=== PATIENT | female | born 1950 | race Caucasian/White ===

== ENCOUNTER 2019-04-18 00:08 | Day surgery (SDC) | payer MEDICARE, SELFPAY ==
[2019-04-12 14:56] VITALS: BMI 24.2
[2019-04-18 12:05] VITALS: BP 139/102; PULSE 64; RESP 16; TEMP 36.7; O2SAT 100; BMI 23.1
--- NOTE | 2019-04-18 12:13 | WPDANESEPPF ---
Anes - Initial Pre Proc Eval Procedure: Operation Date: 04/18/19 13:00 Proposed Procedures p Colonoscopy - Donavan Hou DO Date/Time: 04/18/19 12:13 Surgeon: Donavan Hou DO Pre Op Diagnosis: Diverticulitis with Abscess Patient Data Age: 68 Gender: F Height: 5 ft 2 in Weight: 60 kg Allergies Allergy/AdvReac Type Severity Reaction Status Date / Time No Known Allergies Allergy Verified 04/18/19 11:57 Home Medications Medication Instructions Recorded Confirmed Type metoprolol succinate 150 mg PO DAILY 01/08/19 04/18/19 History acetaminophen [Tylenol] 325 mg PO ONCE PRN 04/12/19 04/18/19 History ascorbic acid (vitamin C) [Vitamin 1 g PO DAILY 04/12/19 04/18/19 History C] multivitamin 1 cap PO DAILY 04/12/19 04/18/19 History cholecalciferol (vitamin D3) 25 mcg PO DAILY 04/18/19 04/18/19 History Patient hx anesthesia problems: none Family hx anesthesia problems: none PMFSH Past Medical History Medical History Anxiety Arthritis Brugada syndrome Status post ICD insertion. She is a patient of Drs. Garza and Cruz at [facility]. Cardiac defibrillator in place Generator replaced within the past 2 years. Depression Diverticulosis Skin cancer History of basal cell carcinoma of the face. Surgical History Surgical History H/O shoulder surgery Right shoulder. History of abdominoplasty History of appendectomy At the age of 9. History of bowel resection small bowel resection 01/16/19 History of breast augmentation History of colonoscopy findings of diverticulosis History of dilation and curettage History of surgery on wrist bilateral Family History Family History Father Carcinoma of colon Social History Social History Social History: The patient lives in [place]. She lived is originally from [place] and lived in [place] before moving here in September 2015 to be closer to her grandchildren. She works for the [employer]. She smoked a pack of cigarettes per day for many years, but quit several years ago. She has a long history of alcoholism but has abstained for several years. She denies drug use. Primary care provider is TYREE Nicolas. She designates her daughter and son, Jennie Springer, as her surrogate decision makers and she wishes to be a full code. Tobacco type: cigarettes Substance use: never Spiritual care concerns: No Agree to blood products: Yes Anes - Eval Final PreProcedure Day of Procedure 04/18/19 12:13 Patient weight: normal Heart: regular rate and rhythm Lungs: decreased breath sounds Airway: Mallampati scale class II Neurological: alert and oriented Last oral intake: >/= 8 hours ASA classification: IV Emergent: no Anesthetic plan: proceed Anesthesia type and monitoring: general GIVS and standard monitoring Informed Consent: The patient's anesthetic plan and its attendant risks and benefits were discussed with the patient/family/POA. Questions were solicited and answers provided to the satisfaction of the patient/family/POA.
[2019-04-18] MEDS: LACTATED RINGERS 1,000 ML 150 ML IV CONT (12:35)
--- NOTE | 2019-04-18 12:53 | PM.IMHP ---
H&P: HPI History of Present Illness Chief complaint: Diverticulitis with Abscess Narrative: Lynn Doe is a 68 year old female who presents with prior hx of diverticulitis with abscess that was causing a small bowel obstruction. Eventually she had to have small bowel resection, but did not require colon resection. She has recovered well and has no more signs of diverticulitis. She presents now for follow up colonoscopy. Review of Systems Review of Systems: All systems reviewed & are unremarkable except as noted in HPI and below PMFSH Past Medical History Medical History Anxiety Arthritis Brugada syndrome Status post ICD insertion. She is a patient of Drs. Garza and Cruz at [facility]. Cardiac defibrillator in place Generator replaced within the past 2 years. Depression Diverticulosis Skin cancer History of basal cell carcinoma of the face. Surgical History Surgical History H/O shoulder surgery Right shoulder. History of abdominoplasty History of appendectomy At the age of 9. History of bowel resection small bowel resection 01/16/19 History of breast augmentation History of colonoscopy findings of diverticulosis History of dilation and curettage History of surgery on wrist bilateral Family History Family History Father Carcinoma of colon Social History Social History Social History: The patient lives in [place]. She lived is originally from [place] and lived in [place] before moving here in September 2015 to be closer to her grandchildren. She works for the [place] [employer]. She smoked a pack of cigarettes per day for many years, but quit several years ago. She has a long history of alcoholism but has abstained for several years. She denies drug use. Primary care provider is TYREE Nicolas. She designates her daughter and son, Jennie Springer, as her surrogate decision makers and she wishes to be a full code. Tobacco type: cigarettes Substance use: never Spiritual care concerns: No Agree to blood products: Yes Meds Home Medications and Allergies Home Medications Medication Instructions Recorded Confirmed Type metoprolol succinate 150 mg PO DAILY 01/08/19 04/18/19 History acetaminophen [Tylenol] 325 mg PO ONCE PRN 04/12/19 04/18/19 History ascorbic acid (vitamin C) [Vitamin 1 g PO DAILY 04/12/19 04/18/19 History C] multivitamin 1 cap PO DAILY 04/12/19 04/18/19 History cholecalciferol (vitamin D3) 25 mcg PO DAILY 04/18/19 04/18/19 History Allergies Allergy/AdvReac Type Severity Reaction Status Date / Time No Known Allergies Allergy Verified 04/18/19 11:57 Vital Signs Vital Signs - 24 hr 04/18/19 12:05 Temperature 36.7 C Pulse Rate 64 Respiratory Rate 16 Blood Pressure 139/102 H Pulse Oximetry 100 Exam Const: General: no acute distress and alert Orientation/consciousness: patient oriented x3 HENMT: Head: normocephalic and atraumatic Ears: hearing grossly normal bilaterally General nose exam: Normal nares present Mouth: Yes Normal oral and palatal mucosa present Eyes: Periorbital: periorbital findings normal Sclera: sclerae normal EOM: EOMs intact bilaterally Neck: Neck: normal visual inspection, no lymphadenopathy and trachea midline Chest: Chest palpation & inspection: normal inspection of the chest Resp: Effort & Inspection: normal respiratory effort Auscultation: clear to auscultation bilaterally Cardio: Jugular venous distension: no JVD Rate: regular rate Rhythm: regular rhythm Heart sounds: S1 normal heart sound present and S2 normal heart sound present Peripheral pulses: Peripheral pulses 2+ throughout GI: Inspection: normal to inspection GI Palp: Yes Soft to palpation, No Ten
[2019-04-18 13:32] VITALS: BP 106/61; PULSE 63; RESP 18; O2SAT 98
[2019-04-18 13:42] VITALS: BP 102/68; PULSE 63; RESP 19; O2SAT 100
[2019-04-18 13:52] VITALS: BP 111/68; PULSE 61; RESP 22; O2SAT 100
== END 2019-04-18 14:05 | disposition home or self-care (01) ==
PROVIDERS: PCP Physician Assistant; Visit Provider Surgery
PROC: 0DJD8ZZ Inspection of Lower Intestinal Tract, Via Natural or Artificial Opening Endoscopic (ICD-10-PCS; CPT 45378; principal; 2019-04-18 13:00)
DX: Z09 Encounter for follow-up examination after completed treatment for conditions other than malignant neoplasm (principal); K57.30 Diverticulosis of large intestine without perforation or abscess without bleeding; Z87.19 Personal history of other diseases of the digestive system; Z90.49 Acquired absence of other specified parts of digestive tract; Z80.0 Family history of malignant neoplasm of digestive organs; I49.8 Other specified cardiac arrhythmias; F41.8 Other specified anxiety disorders; Z95.810 Presence of automatic (implantable) cardiac defibrillator; Z87.891 Personal history of nicotine dependence; F10.21 Alcohol dependence, in remission
CPT/HCPCS: 45378; J2704; J7120

== ENCOUNTER 2019-07-28 06:50 | Outpatient (CLI) | payer MEDICARE, SELFPAY ==
--- NOTE | ~2019-07-28 | CT_ITS ---
EXAMINATION: CT abdomen pelvis w con INDICATION: Diverticulitis of the large intestine with perforation TECHNIQUE: Computed tomographic images of the abdomen and pelvis were obtained after the administrati on of 100 cc of Omnipaque 350 intravenous contrast. The dose-length product (DLP) was 251.37 mGy-cm. Automated exposure control and iterative reconstruction technique were employed. COMPARISON: 01/12/2019 FINDINGS: Minimal dependent atelectasis is present in the lung bases. The heart size is normal. A pac emaker lead ends in the right ventricle. Bilateral breast implants are noted. The liver, spleen, panc reas, gallbladder, and adrenal glands are normal. No pathologically enlarged abdominal or pelvic lymp h nodes are identified. There is no free intraperitoneal gas or evidence of bowel obstruction. Coloni c diverticulosis is present without evidence of diverticulitis. There has been interval surgical almaguer ge in the sigmoid colon. The previously described perisigmoid abscess is no longer present. There is moderate lumbar spondylosis. IMPRESSION: 1. Interval surgical changes of the sigmoid colon and colonic diverticulosis without acute findings. Reviewed, dictated and finalized at location A. IMPRESSION: 1. Interval surgical changes of the sigmoid colon and colonic diverticulosis wi thout acute findings.
[2019-07-28 07:24] LABS: Estimated Glomerular Filt Rate > 60
== END 2019-07-28 06:51 | disposition home or self-care (01) ==
LOC: ANHIMG 06:56
PROVIDERS: PCP Physician Assistant; Visit Provider Surgery
DX: K57.20 Diverticulitis of large intestine with perforation and abscess without bleeding (principal); Z98.890 Other specified postprocedural states
CPT/HCPCS: 36415; 74177; Q9967

== ENCOUNTER → 2020-01-30 13:48 | Outpatient (REF) | payer MEDICARE, SELFPAY | LOC: ANHLAB 13:48 | PROVIDERS: PCP Physician Assistant; Visit Provider Nurse Practitioner | DX: C44.311 Basal cell carcinoma of skin of nose (principal) | CPT/HCPCS: 88305 ==

== ENCOUNTER → 2020-03-25 09:04 | Outpatient (REF) | payer MEDICARE, SELFPAY | LOC: ANHLAB 09:04 | PROVIDERS: PCP Physician Assistant; Visit Provider Nurse Practitioner | DX: C44.311 Basal cell carcinoma of skin of nose (principal) | CPT/HCPCS: 88305; 88331 ==

== ENCOUNTER 2020-04-12 21:09 | Emergency (ER) | payer MEDICARE, SELFPAY ==
--- NOTE | ~2020-04-12 | CT_ITS ---
EXAMINATION: CT abdomen pelvis w con EXAM DATE: 04/13/2020 01:47 INDICATION: Left lower quadrant pain. TECHNIQUE: Spiral CT of the abdomen and pelvis was performed following intravenous injection of 100 m L Omnipaque 350. Axial, coronal and sagittal images were reviewed. The dose-length product (DLP) fo r this examination was 255.29 mGy-cm. The exposure was tailored according to patient size (auto mA e xposure control), and iterative reconstruction (ASIR) was used as additional dose reduction technique . Comparison is made to prior examination from 07/28/2019. FINDINGS: The liver, spleen, adrenal glands and pancreas are unremarkable. Gallbladder is unremarkab le. No biliary obstruction. Portal and splenic veins are patent. Kidneys enhance symmetrically. T here is no hydronephrosis. The uterus is unremarkable. The bladder is unremarkable. There is no retroperitoneal or pelvic lymphadenopathy. There is mild scattered arteriosclerotic disease. The appendix is not positively visualized. There is no pericecal inflammatory change to suggest appe ndicitis. There is moderate sigmoid predominant colonic diverticulosis. There is no adjacent inflamm atory change to suggest diverticulitis. Small bowel anastomosis. The stomach and small bowel are un remarkable. There is expected amount of colonic stool. No free intraperitoneal gas. The heart is normal in size. There are no pericardial or pleural effusions. There is 4 mm right lower lobe nodu le unchanged, likely a noncalcified granuloma. There are no osteoblastic or osteolytic lesions ident ified. Advanced disc disease L2-3. IMPRESSION: 1. No acute intra-abdominal findings. 2. Colonic diverticulosis. Reviewed, dictated and finalized at location A. [facility] PLANNER
[2020-04-12 21:33] VITALS: BP 166/82; PULSE 83; RESP 18; TEMP 36.8; O2SAT 100
[2020-04-12 22:10] LABS: Basophils Absolute Auto 0.1 K/mm3 (0.0-0.1); Eosinophils Absolute Auto 0.1 K/mm3 (0-0.3); Eosinophils Percent Auto 1.6 % (0-4.4); Hematocrit 37.7 % (37.0-47.0); Hemoglobin 12.2 g/dL (12.0-15.0); Immature Granulocyte Absolute 0.01 K/mm3 (0.00-0.031); Immature Granulocyte Percent A 0.2 % (0-0.5); Lymphocytes Absolute Auto 2.06 K/mm3 (0.9-3.2); Lymphocytes Percent Auto 41.6 % (18.3-44.2); Mean Corpuscular HGB Conc 32.4 g/dl (32-36); Mean Corpuscular Hemoglobin 31.9 pg (26-34); Mean Corpuscular Volume 98.4 fl (80-100); Mean Platelet Volume 9.4 fl (7.4-10.4); Monocytes Absolute Auto 0.5 K/mm3 (0.1-0.6); Monocytes Percent Auto 9.1 % (2.6-8.5); Neutrophils Absolute Auto 2.3 K/mm3 (1.3-6.7); Neutrophils Percent Auto 46.5 % (45.5-73.1); Platelet Count Result 210 k/mm3 (150-375); Red Blood Count 3.83 M/mm3 (4.2-5.4); Red Cell Distribution Width 13.8 % (11.5-14.5)
[2020-04-12 22:18] LABS: Add Urine Microscopic? YES; Appearance Urine Clear (Clear); Bacteria Urine Trace /hpf; Bilirubin Urine Negative (Negative); Blood Urine Negative (Negative); Color Urine Straw (Yellow); Glucose Urine UA Negative (Negative); Ketones Urine Negative (Negative); Leukocyte Esterase Ur Trace LEU/UL (Negative); Mucus Urine Rare /lpf; Nitrate Urine Negative (Negative); Protein Urine Negative (Negative); RBC Urine 0-2 /hpf (0-2); Specific Grav Ur 1.009 (1.001-1.035); Squamous Epithelial Cell Urine Rare /hpf (Few); Urobilinogen Urine Negative mg/dL (<2.0); WBC Urine 0-3 /hpf
[2020-04-12 22:25] LABS: Alanine Aminotransferase 15 U/L (4-35); Albumin Level 4.6 g/dL (3.5-5.1); Alkaline Phosphatase 91 U/L (38-126); Anion Gap 8 mmol/L (8-16); Aspartate Amino Transferase 29 U/L (14-36); Bilirubin,Total 0.3 mg/dL (0.2-1.3); Blood Urea Nitrogen 14 mg/dL (7-17); Calcium 9.5 mg/dL (8.4-10.2); Carbon Dioxide 30 mmol/L (22-30); Chloride 102 mmol/L (98-107); Estimated CRCL calculation 64 ml/min; Estimated Glomerular Filt Rate > 60; Glucose 118 mg/dL (65-105); Lipase 187 U/L (23-300); Potassium 3.7 mmol/L (3.4-5.0); Sodium 140 mmol/L (137-145)
[2020-04-13] MEDS: MORPHINE SULFATE (*CRX) 4 MG/ML INJ IV PUSH ×2 (01:33→04:09)
[2020-04-13 02:24] VITALS: BP 154/78; PULSE 60; RESP 18; O2SAT 100
--- NOTE | 2020-04-13 03:22 | ED.GENADULT ---
HPI - General Adult General Chief complaint: Abdominal Pain Stated complaint: abd pain Time Seen by Provider: 04/13/20 00:28 History of Present Illness HPI narrative: Patient is a 69-year-old female who presents ER with low back and lower abdominal pain. Ongoing for last days. Has history of diverticulitis in the past that had a very complicated course. She has had bowel obstructions as result of it. Reports the pain is in a similar location has been persistent. No fevers or chills or sweats. No diarrhea. Back pain is left side and not related to trauma. Feels that it is deeper than the muscles. Had contacted her surgeon who had cared for previously and after discussion decided to come to the ER for further evaluation. Related Data Home Medications Medication Instructions Recorded Confirmed metoprolol succinate 150 mg PO DAILY 01/08/19 07/20/19 acetaminophen [Tylenol] 325 mg PO ONCE PRN 04/12/19 07/20/19 ascorbic acid (vitamin C) [Vitamin 1 g PO DAILY 04/12/19 07/20/19 C] multivitamin 1 cap PO DAILY 04/12/19 07/20/19 cholecalciferol (vitamin D3) 25 mcg PO DAILY 04/18/19 07/20/19 Allergies Allergy/AdvReac Type Severity Reaction Status Date / Time No Known Allergies Allergy Verified 01/30/20 13:25 Review of Systems Review of Systems: All systems reviewed & are unremarkable except as noted in HPI and below Constitutional: Constitutional: Denies chills, Denies fever(s) and Denies weakness Cardiovascular: Cardiovascular: Denies chest pain and Denies radiating jaw, neck or arm pain Respiratory: Respiratory: Denies cough and Denies dyspnea Gastrointestinal: Gastrointestinal: Reports abdominal pain, Reports bloating, Denies diarrhea, Denies nausea and Denies vomiting [facility] Past Medical History Medical History (Updated 04/13/20 @ 03:26 by Petr Peralta MD) Anxiety Arthritis Brugada syndrome Status post ICD insertion. She is a patient of Drs. Garza and Cruz at [facility]. Cardiac defibrillator in place Generator replaced within the past 2 years. Depression Diverticulosis Skin cancer History of basal cell carcinoma of the face. Surgical History Surgical History H/O shoulder surgery Right shoulder. History of abdominoplasty History of appendectomy At the age of 9. History of bowel resection small bowel resection 01/16/19 History of breast augmentation History of colonoscopy findings of diverticulosis History of dilation and curettage History of surgery on wrist bilateral Family History Family History Father Carcinoma of colon Social History Social History Social History: The patient lives in [place]. She lived is originally from [place] and lived in [place] before moving here in September 2015 to be closer to her grandchildren. She works for the [place] [employer]. She smoked a pack of cigarettes per day for many years, but quit several years ago. She has a long history of alcoholism but has abstained for several years. She denies drug use. Primary care provider is TYREE Nicolas. She designates her daughter and son, Jennie Springer, as her surrogate decision makers and she wishes to be a full code. Tobacco type: cigarettes Substance use: never Spiritual care concerns: No Agree to blood products: Yes Exam Narrative: Exam Narrative: GENERAL: Well-appearing, well-nourished, and in no acute distress. HEAD: Normocephalic, atraumatic. CHEST: Clear to auscultation. No respiratory distress. HEART: Regular rate and rhythm. Normal peripheral pulses. ABDOMEN: Soft, mild LLQ tenderness w/o guarding, nondistended. BACK: No midline or paraspinal muscle tenderness of the T/L-spine. EXTREMITIES: Normal range of motion. No edema. SKIN: Warm, dry, no rash. NEURO: Alert and oriented x3. Course Cours
[2020-04-13 03:58] VITALS: BP 150/74; PULSE 73; RESP 18; O2SAT 100
[2020-04-13 05:08] VITALS: BP 144/74; PULSE 79; RESP 18; O2SAT 97
== END 2020-04-13 05:10 | disposition home or self-care (01) ==
PROVIDERS: Emergency Medicine; Emergency Provider Emergency Medicine; PCP Physician Assistant
DX: K52.9 Noninfective gastroenteritis and colitis, unspecified (principal); M19.90 Unspecified osteoarthritis, unspecified site; I49.8 Other specified cardiac arrhythmias; Z85.828 Personal history of other malignant neoplasm of skin; Z87.891 Personal history of nicotine dependence; Z95.810 Presence of automatic (implantable) cardiac defibrillator; K57.90 Diverticulosis of intestine, part unspecified, without perforation or abscess without bleeding
CPT/HCPCS: 36415; 74177; 80053; 81001; 83690; 85025; 96374; 96376; 99284; J2270; Q9967

== ENCOUNTER 2020-05-01 20:21 | Emergency (ER) | payer MEDICARE, SELFPAY ==
--- NOTE | ~2020-05-01 | CT_ITS ---
EXAMINATION: CT abdomen pelvis w con EXAM DATE: 05/01/2020 22:02 INDICATION: Abdominal pain. TECHNIQUE: Spiral CT of the abdomen and pelvis was performed following intravenous injection of 100 m L Omnipaque 350. Axial, coronal and sagittal images were reviewed. The dose-length product (DLP) fo r this examination was 244.09 mGy-cm. The exposure was tailored according to patient size (auto mA e xposure control), and iterative reconstruction (ASIR) was used as additional dose reduction technique . 04/13/2020 FINDINGS: The liver, spleen, adrenal glands and pancreas are unremarkable. The gallbladder is modera tely distended but otherwise unremarkable. There is no biliary duct dilation. Portal and splenic ve ins are patent. Kidneys enhance symmetrically. There is no hydronephrosis. There are small regions of bilateral renal cortical scarring. The uterus is anteverted and morphologically normal. The jenny dder is unremarkable. There is no retroperitoneal or pelvic lymphadenopathy. There is mild scatter ed arteriosclerotic disease. The appendix is not positively visualized. There is no pericecal inflammatory change to suggest appe ndicitis. There is mild scattered colonic diverticulosis. There is no adjacent inflammatory change t o suggest diverticulitis. There is a small bowel anastomosis. The stomach and small bowel are unrem arkable. There is expected amount of colonic stool. No free intraperitoneal gas. The heart is no rmal in size. There are no pericardial or pleural effusions. 4 mm right lower lobe nodule again abram ntified, probably granuloma. There are no osteoblastic or osteolytic lesions identified. Mild thorac olumbar dextroscoliosis. IMPRESSION: 1. No acute intra-abdominal findings. 2. Mild colonic diverticulosis. Reviewed, dictated and finalized at location G.
--- NOTE | ~2020-05-01 | CT_ITS ---
EXAMINATION: CT brain wo con, CT cervical spine wo con EXAM DATE: 05/01/2020 21:18 (accession [id number]), 05/01/2020 21:19 (accession [id number]) INDICATION: Fall, head injury. Abrasion to left side. TECHNIQUE: Spiral CT of the head was performed without contrast. Axial, coronal and sagittal images were reviewed. Spiral CT of the cervical spine was performed without contrast. Axial images were rev iewed. Coronal and sagittal reformatted images were also reviewed. The dose-length product (DLP) fo r this examination was 605.33 (accession [id number]), 170.15 (accession [id number]) mGy-cm. The exposure was tailored according to patient size, and iterative reconstruction (ASIR) was used as additional dose reduction technique. Comparison is made to prior examination from 01/24/2016. FINDINGS: HEAD CT: There is punctate old left thalamic lacunar infarction. There is no acute intraparenchymal h emorrhage. No evidence of intraparenchymal brain mass lesion. No evidence of acute infarction. Ther e is moderate periventricular and subcortical hypodensity, nonspecific but probably related to small vessel ischemic disease. There is moderate prominence of the sulci and ventricles related to cerebr al atrophy. There is intracranial carotid arteriosclerosis. There is no mass effect or midline sh ift. There is no obstructive hydrocephalus suspected. There are no extra-axial collections. There a re no acute calvarial fractures. The orbits are unremarkable. Soft tissue is unremarkable. The vis ualized sinuses and mastoid air cells are well aerated. Small right ethmoid osteoma. CERVICAL CT: There is mild reversal of the normal cervical lordosis which may be degenerative, positi onal or spasm. There is no evidence of acute cervical fracture. The odontoid process is intact. Pre -dens space is normal. Prevertebral soft tissue is normal. There are no soft tissue abnormalities i dentified. There is no disc space widening or traumatic vertebral body subluxation suspected. There is moderate to severe cervical disc disease from C3 through C7, and left C2-3 facet arthropathy. Les s facet arthropathy at the other levels. Multilevel neural foraminal stenosis from uncovertebral join t arthropathy. Cardiac pacemaker/AICD device. Right clavicular hardware. IMPRESSION: 1. No acute intracranial findings or cervical fracture. 2. Reversal of normal cervical lordosis. 3. Advanced cervical spondylosis. 4. Age-related intracranial findings. Reviewed, dictated and finalized at location A. IMPRESSION: 1. No acute intracranial findings or cervical fracture. 2. Reversal of normal cervical lordosis. 3. Advanced cervical spondylosis. 4. Age-related intracranial findings.
[2020-05-01 20:32] VITALS: BP 110/83; PULSE 79; RESP 16; TEMP 36.2; O2SAT 97
[2020-05-01] MEDS: ONDANSETRON INJ 4 MG/2 ML VIAL (21:02)
[2020-05-01] MEDS: THIAMINE HCL INJ 100 MG, FOLIC ACID INJ 1 MG, MULTIVITAMINS-12 INJ VIAL 1 5 ML, MULTIVI... IV CONT (21:21)
[2020-05-01 21:24] LABS: Basophils Absolute Auto 0.1 K/mm3 (0.0-0.1); Basophils Percent Auto 0.7 % (0.2-1.2); Eosinophils Percent Auto 0.3 % (0-4.4); Hematocrit 42.4 % (37.0-47.0); Hemoglobin 14.4 g/dL (12.0-15.0); Immature Granulocyte Absolute 0.02 K/mm3 (0.00-0.031); Immature Granulocyte Percent A 0.2 % (0-0.5); Lymphocytes Absolute Auto 2.65 K/mm3 (0.9-3.2); Lymphocytes Percent Auto 27.4 % (18.3-44.2); Mean Corpuscular Hemoglobin 32.4 pg (26-34); Mean Corpuscular Volume 95.3 fl (80-100); Mean Platelet Volume 9.4 fl (7.4-10.4); Monocytes Absolute Auto 0.5 K/mm3 (0.1-0.6); Monocytes Percent Auto 5.5 % (2.6-8.5); Neutrophils Absolute Auto 6.4 K/mm3 (1.3-6.7); Neutrophils Percent Auto 65.9 % (45.5-73.1); Platelet Count Result 335 k/mm3 (150-375); Red Blood Count 4.45 M/mm3 (4.2-5.4); Red Cell Distribution Width 13.6 % (11.5-14.5); White Blood Count 9.7 K/mm3 (4.5-10.0)
[2020-05-01 21:34] LABS: Partial Thromboplastin Time 25.8 SECONDS (22.3-36.8)
[2020-05-01 21:42] LABS: Alanine Aminotransferase 21 U/L (4-35); Albumin Level 4.7 g/dL (3.5-5.1); Alkaline Phosphatase 92 U/L (38-126); Anion Gap 17 mmol/L (8-16); Aspartate Amino Transferase 43 U/L (14-36); Bilirubin,Total 0.2 mg/dL (0.2-1.3); Blood Urea Nitrogen 25 mg/dL (7-17); Calcium 9.6 mg/dL (8.4-10.2); Carbon Dioxide 20 mmol/L (22-30); Chloride 104 mmol/L (98-107); Estimated CRCL calculation 46 ml/min; Estimated Glomerular Filt Rate > 60; Glucose 100 mg/dL (65-105); Potassium 4.5 mmol/L (3.4-5.0); Sodium 141 mmol/L (137-145)
[2020-05-01] MEDS: diphenhydrAMINE HCl INJ 50 MG/ML VIAL 25 MG IV PUSH (21:47)
--- NOTE | 2020-05-01 21:55 | ED.GENADULT ---
HPI - General Adult General Chief complaint: Abdominal Pain Stated complaint: Fall/Nausea Time Seen by Provider: 05/01/20 21:20 History of Present Illness HPI narrative: Patient is a six 9-year-old female presents to emergency department with chief complaint of nausea and vomiting. Patient reports that she has history of alcoholism and has been sober for extended period of time. The patient states that yesterday she started drinking again and drink a bottle of wine yesterday and drank a bottle of wine today. Patient reports that she feels extremely nauseated she also while she was intoxicated fell striking her head and is unsure whether she had loss of consciousness. Patient reports bruising around her left orbit denies any changes in vision denies focal neurological deficit. Related Data Home Medications Medication Instructions Recorded Confirmed metoprolol succinate 150 mg PO DAILY 01/08/19 07/20/19 acetaminophen [Tylenol] 325 mg PO ONCE PRN 04/12/19 07/20/19 ascorbic acid (vitamin C) [Vitamin 1 g PO DAILY 04/12/19 07/20/19 C] multivitamin 1 cap PO DAILY 04/12/19 07/20/19 cholecalciferol (vitamin D3) 25 mcg PO DAILY 04/18/19 07/20/19 Allergies Allergy/AdvReac Type Severity Reaction Status Date / Time No Known Allergies Allergy Verified 01/30/20 13:25 Review of Systems Review of Systems: Narrative: A 10 system review of systems was completed on the patient and is negative except for what is stated in the HPI. Nursing and ancillary documentation was reviewed. [facility] Past Medical History Medical History (Updated 05/01/20 @ 23:43 by Ulises Cope MD) Anxiety Arthritis Brugada syndrome Status post ICD insertion. She is a patient of Drs. Garza and Cruz at [facility]. Cardiac defibrillator in place Generator replaced within the past 2 years. Depression Diverticulosis Skin cancer History of basal cell carcinoma of the face. Surgical History Surgical History H/O shoulder surgery Right shoulder. History of abdominoplasty History of appendectomy At the age of 9. History of bowel resection small bowel resection 01/16/19 History of breast augmentation History of colonoscopy findings of diverticulosis History of dilation and curettage History of surgery on wrist bilateral Family History Family History Father Carcinoma of colon Social History Social History Social History: The patient lives in [place]. She lived is originally from [place] and lived in [place] before moving here in September 2015 to be closer to her grandchildren. She works for the [place] [employer] She smoked a pack of cigarettes per day for many years, but quit several years ago. She has a long history of alcoholism but has abstained for several years. She denies drug use. Primary care provider is TYREE Nicolas. She designates her daughter and son, Jennie Springer, as her surrogate decision makers and she wishes to be a full code. Tobacco type: cigarettes Substance use: never Spiritual care concerns: No Agree to blood products: Yes Exam Narrative: Exam Narrative: GENERAL: Well-appearing, well-nourished, and in no acute distress. HEAD: Normocephalic, atraumatic. EYES: PERRLA and EOMI. ENT: Nares clear, no rhinorrhea or epistaxis. Mucous membranes moist. NECK: Supple. CHEST: Clear to auscultation. No respiratory distress. HEART: Regular rate and rhythm. No murmur heard. Normal peripheral pulses. ABDOMEN: Soft, tender to palpation in the epigastric region, nondistended, normal active bowel sounds. EXTREMITIES: Normal range of motion. No edema. SKIN: Warm, dry, no rash. NEURO: No focal deficits. Alert and oriented x3. PSYCH: Normal mood and affect. Course Vital Signs Vital signs: V
[2020-05-01 22:27] LABS: Lactic Acid Reflex 3.3 mmol/L (0.7-2.1); Lipase 144 U/L (23-300); Magnesium 2.1 mg/dL (1.6-2.3)
[2020-05-01 23:03] VITALS: BP 134/86; PULSE 91; RESP 20; TEMP 36.6; O2SAT 99
[2020-05-02 00:15] VITALS: BP 126/74; PULSE 74; RESP 16; TEMP 36.4; O2SAT 98
[2020-05-02 01:12] LABS: Reflex Lactic Acid Yes or No Add Lactic
== END 2020-05-02 00:16 | disposition home or self-care (01) ==
PROVIDERS: Emergency Medicine; Emergency Provider Emergency Medicine; PCP Physician Assistant
DX: R11.2 Nausea with vomiting, unspecified (principal); M19.90 Unspecified osteoarthritis, unspecified site; I49.8 Other specified cardiac arrhythmias; S05.12XA Contusion of eyeball and orbital tissues, left eye, initial encounter; Z95.810 Presence of automatic (implantable) cardiac defibrillator; Z85.828 Personal history of other malignant neoplasm of skin; Z90.49 Acquired absence of other specified parts of digestive tract; Z87.891 Personal history of nicotine dependence; F10.20 Alcohol dependence, uncomplicated; W19.XXXA Unspecified fall, initial encounter
CPT/HCPCS: 36415; 70450; 72125; 74177; 80053; 83605; 83690; 83735; 85025; 85730; 96365; 96366; 96375; 99284; J1200; J2405; J3411; J3475; J7030; Q9967

== ENCOUNTER 2021-02-24 07:32 | Outpatient (CLI) | payer MEDICARE, SELFPAY ==
--- NOTE | ~2021-02-24 | NM_ITS ---
EXAMINATION: NM hepatobiliary wo pharm EXAM DATE: 02/24/2021 10:11 INDICATION: Diarrhea . TECHNIQUE: 5 mCi Tc-99m mebrofenin (Choletec) was administered intravenously. Scintigraphic images o f the abdomen were obtained for one hour. To obtained gallbladder ejection fraction, patient drank 8 ounces of Ensure and imaging of the gallbladder obtained for one hour following ingestion. Gallblad richie ejection fraction was calculated by the technologist. There is no prior study for comparison. FINDINGS: There is normal clearance of radiotracer from the blood pool. There is homogeneous tracer u ptake by the liver. Activity progresses to the gallbladder and bowel. The gallbladder ejection fract ion (GBEF) is 87% (most patients with gallbladder dysfunction have GBEF < 35%, but there is slight ov erlap with the normal range of 33-90% using this protocol).] IMPRESSION: Gallbladder ejection fraction 87%, within normal range. Reviewed, dictated and finalized at location G. 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
== END 2021-02-24 07:33 | disposition home or self-care (01) ==
PROVIDERS: PCP Physician Assistant; Visit Provider Physician Assistant
DX: R19.7 Diarrhea, unspecified (principal)
CPT/HCPCS: 78226; A9537

== ENCOUNTER 2021-02-25 08:00 | Outpatient (CLI) | payer MEDICARE, SELFPAY ==
--- NOTE | ~2021-02-25 | US_ITS ---
US right upper quadrant DATE: 02/25/2021 08:30 INDICATION: Diarrhea TECHNIQUE: Real-time imaging of liver, pancreas, gallbladder COMPARISON: 02/24/2021 radionuclide hepatobiliary scan 04/27/2020 CT abdomen pelvis FINDINGS: No hepatic or pancreatic space-occupying mass lesion is evident. Normal hepatopedal portal venous flow direction. The gallbladder appears normal. Negative sonographic Gleason's sign., Bile duct measures 6 mm, at upper limits of normal. IMPRESSION: No significant abnormality Reviewed, dictated and finalized at Location A. Reviewed, dictated and finalized at location A. 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
== END 2021-02-25 08:01 | disposition home or self-care (01) ==
LOC: ANHIMG 08:05
PROVIDERS: PCP Physician Assistant; Visit Provider Physician Assistant
DX: R19.7 Diarrhea, unspecified (principal)
CPT/HCPCS: 76705

== ENCOUNTER → 2021-03-11 15:11 | Outpatient (REF) | payer MEDICARE, SELFPAY | LOC: ANHLAB 15:11 | PROVIDERS: PCP Physician Assistant; Visit Provider Nurse Practitioner | DX: C44.729 Squamous cell carcinoma of skin of left lower limb, including hip (principal) | CPT/HCPCS: 88305 ==

== ENCOUNTER → 2021-05-05 10:15 | Outpatient (REF) | payer MEDICARE, SELFPAY | LOC: ANHLAB 10:15 | PROVIDERS: PCP Physician Assistant; Visit Provider Nurse Practitioner | DX: C44.719 Basal cell carcinoma of skin of left lower limb, including hip (principal) | CPT/HCPCS: 88305; 88331 ==

== ENCOUNTER 2021-08-18 11:13 | Outpatient (CLI) | payer MEDICARE, SELFPAY ==
--- NOTE | ~2021-08-18 | CT_ITS ---
EXAMINATION: CT abdomen pelvis w con DATE: 08/18/2021 11:54 INDICATION: Posterior upper abdominal pain, postprandial diarrhea TECHNIQUE: Computed tomography (CT) of the abdomen and pelvis was performed with 100 CC Omnipaque 300 intravenous contrast. Automated exposure control and iterative reconstruction technique were employe d. Exam dose: 453.03 mGy-cm total exam DLP. COMPARISON: 02/25/2021 right upper quadrant abdominal ultrasound 05/01/2020 CT abdomen pelvis 01/12/2019 CT abdomen pelvis. FINDINGS: The lung bases are clear. Size is normal. No pericardial or pleural effusion. Status post bilateral augmentation mammoplasty. Small sliding hiatal hernia. The gallbladder is present. There is borderline gallbladder wall thickening. No pericholecystic fluid or fat stranding. There is interval mild intrahepatic and extra hepatic bile duct dilatation since consider MRCP. No hepatic, splenic or pancreatic space-occupying mass lesion is evident. Normal morphology of the adrenal glands. Bilateral renal cortical scarring likely due to chronic pyelonephritis. No urinary tract calculus or hydroureteronephrosis. The urinary bladder is unremarkable. Uterus and adnexal areas are unremarkable . There is distention of the small bowel at the anastomosis, measuring up to 4.5 x 6.7 cm, with no sign ificant proximal small bowel dilatation proximal small bowel is fluid distended but measures 1.5 cm d iameter, within normal range.. The anastomotic area has dilated and shifted from the left lower quad rant to the right lower quadrant since 05/01/2020. Diverticulosis of the left and right colon; no CT evidence of diverticulitis. Interval mild anterior wedge compression fracture deformity of L1 since 05/01/2020. Severe degenerative disc disease at L2-3 and L4-5. IMPRESSION: Interval prominent dilatation and shift into the right lower quadrant of the small bowel anastomotic area since 04/27/2020. Findings suggest mild partial obstruction at the anastomosis. Interval mild intrahepatic and extra hepatic bile duct dilatation since 04/27/2020; consider MRCP Small sliding hiatal hernia Diverticulosis of the colon; no evidence of diverticulitis Bilateral chronic pyelonephritis Interval mild anterior wedge compression fracture deformity at L1 since 05/01/2020 Status post bilateral augmentation mammoplasty Reviewed, dictated and finalized at [facility]. Reviewed, dictated and finalized at [facility]. IMPRESSION: Interval prominent dilatation and shift into the right lower quadr ant of the small bowel anastomotic area since 04/27/2020. Findings suggest mild partial obstruction at the anastomosis. Interval mild intrahepatic and extra hepatic bile duct dilatation since 04/28/19 21; consider MRCP Small sliding hiatal hernia Diverticulosis of the colon; no evidence of diverticulitis Bilateral chronic pyelonephritis Interval mild anterior wedge compression fracture deformity at L1 since 05/02/19 21 Status post bilateral augmentation mammoplasty
[2021-08-18 11:46] LABS: Estimated Glomerular Filt Rate > 60
[2021-08-18 12:06] LABS: Basophils Percent Auto 0.5 % (0.2-1.2); Eosinophils Absolute Auto 0.1 K/mm3 (0-0.3); Hemoglobin 11.7 g/dL (12.0-15.0); Immature Granulocyte Absolute 0.01 K/mm3 (0.00-0.031); Immature Granulocyte Percent A 0.3 % (0-0.5); Lymphocytes Absolute Auto 1.49 K/mm3 (0.9-3.2); Lymphocytes Percent Auto 37.6 % (18.3-44.2); Mean Corpuscular HGB Conc 31.6 g/dl (32-36); Mean Corpuscular Hemoglobin 32.3 pg (26-34); Mean Corpuscular Volume 102.2 fl (80-100); Mean Platelet Volume 9.2 fl (7.4-10.4); Monocytes Absolute Auto 0.4 K/mm3 (0.1-0.6); Monocytes Percent Auto 10.6 % (2.6-8.5); Neutrophils Absolute Auto 1.9 K/mm3 (1.3-6.7); Platelet Count Result 190 k/mm3 (150-375); Red Blood Count 3.62 M/mm3 (4.2-5.4); Red Cell Distribution Width 14.1 % (11.5-14.5)
[2021-08-18 12:24] LABS: Alanine Aminotransferase 26 U/L (6-35); Albumin Level 4.3 g/dL (3.5-5.1); Alkaline Phosphatase 77 U/L (38-126); Amylase 137 U/L (30-110); Anion Gap 6 mmol/L (8-16); Aspartate Amino Transferase 37 U/L (14-36); Bilirubin,Total 0.2 mg/dL (0.2-1.3); Blood Urea Nitrogen 13 mg/dL (7-17); Carbon Dioxide 27 mmol/L (22-30); Chloride 104 mmol/L (98-107); Estimated Glomerular Filt Rate > 60; Glucose 93 mg/dL (65-110); Lipase 213 U/L (23-300); Potassium 4.2 mmol/L (3.4-5.0); Sodium 137 mmol/L (137-145)
== END 2021-08-18 11:14 | disposition home or self-care (01) ==
PROVIDERS: PCP Physician Assistant; Visit Provider Physician Assistant
DX: K57.32 Diverticulitis of large intestine without perforation or abscess without bleeding (principal); R10.10 Upper abdominal pain, unspecified; K44.9 Diaphragmatic hernia without obstruction or gangrene; N11.9 Chronic tubulo-interstitial nephritis, unspecified; K57.30 Diverticulosis of large intestine without perforation or abscess without bleeding
CPT/HCPCS: 74177; 80048; 80076; 82150; 83690; 85025; Q9967

== ENCOUNTER 2021-08-27 09:10 | Outpatient (CLI) | payer MEDICARE, SELFPAY ==
--- NOTE | ~2021-08-27 | XR_ITS ---
EXAMINATION: XR small bowel follow through DATE: 08/27/2021 10:15 INDICATION: Partial small bowel obstruction. Abdominal pain. TECHNIQUE: Oral contrast was administered, and a time course of radiographs of the abdomen was obtain ed. Fluoroscopy of the small bowel was performed. Fluoroscopy exposure time was 0.1 minutes. The tota l number of images was 9. COMPARISON: CT abdomen and pelvis 08/18/2021, 05/01/2020 FINDINGS: There is a chronically dilated loop of small bowel at a site of prior surgery, likely adynamic ileus. There is no abnormal mass or stricture. Transit time from the stomach to proximal colon was approxim ately 30 minutes. IMPRESSION: 1. Chronically dilated loop of small bowel at a site of prior surgery, likely adynamic ileus. Reviewed, dictated and finalized at location [facility]. IMPRESSION: 1. Chronically dilated loop of small bowel at a site of prior surgery, likely a dynamic ileus.
== END 2021-08-27 09:11 | disposition home or self-care (01) ==
PROVIDERS: PCP Physician Assistant; Visit Provider Physician Assistant
DX: K56.690 Other partial intestinal obstruction (principal)
CPT/HCPCS: 74250

== ENCOUNTER 2022-03-23 15:30 | Outpatient (RCR) | payer MEDICARE, SELFPAY ==
--- NOTE | 2022-02-11 16:27 | PTOPEVAL1 ---
Assessment and note entered by Dang Rogers, PT, DPT Evaluation Information Assessment Status Evaluation Diagnosis cervical stenosis Onset chronic Subjective Information Pt states she has started to see an orthopedic doctor, they told her she has arthritis riddled up and down her spine. She has neck pain but has always attributed it to old age and being really active. She does not report a history of headaches . She reports about 2 years ago she got into yoga and things she may have aggravated her neck more. Reported Pain Level Pain Score 2: Self Report Assessment PT Clinical Summary Lynn presents to therapy today for her initial evaluation with a diagnosis cervicalgia. Today she demonstrates decreased cervical motion in all directions and decreased mobility with passive strength and side glides. She demonstrates poor mobility throughout her thoracic spine as well. She has good shoulder strength with functional ROM. 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 Skilled physical therapy services are indicated to address the deficits noted above, to limit pain, and to improve functional mobility . Plan of Care Interventions Check Out for Orthotic/Pr,Hot Pack/Cold Pack, Manual Therapy,Neuro Re-education,Patient/ Caregiver Educati,Therapeutic Activities, Therapeutic Exercise PT Services Indicated Yes Treatment Frequency and 1x/wk for 6 wks Duration These treatments will address the objective and functional deficits as defined above. The patient will be advanced safely and appropriately in order for the patient to progress towards his/her prior level of function. Additional exercises will be introduced and as well as a comprehensive home exercise program upon discharge, if needed, ?to ensure carryover of functional gains achieved in the clinic. This treatment plan has been reviewed and agreement upon by the patient.
--- NOTE | 2022-03-02 15:32 | PCPTNOTE ---
Pt did not show for appointment today. Left message on pt's cell phone to remind her of her next appt on 03/04/22 at 13:00. She was encouraged to call if she needed to change any appointments or cancel.
--- NOTE | 2022-03-09 12:54 | PCPTNOTE ---
Patient called and cancelled appointment due to her car door being frozen shut.
--- NOTE | 2022-03-23 16:14 | PTOPDC ---
Assessment and note entered by Dang Rogers, PT, DPT Evaluation Information Assessment Status Discharge Diagnosis cervical stenosis Onset chronic Subjective Information Pt states since starting therapy she has focused on her back more than her neck. She states she understands that her arthritis is not going to completely away from therapy. She states she has done helpful things in therapy, but overall her pain is about the same. She states she has functional pain, that she can continue her day at work, not debilitating pain. She reports good compliance with her HEP. Pt states her neck pain is the same but she has noticed come improvements in her back pain. Reported Pain Level Pain Score 2,4: Self Report Assessment PT Clinical Summary Lynn presents to therapy today for her progress report following 5 visits of skilled therapy to treat her back and neck pain. She reports subjective improvements in her thoracic and lumbar pain, she reports no improvements in her cervical pain. She was progressed and instructed in a HEP with the primary focus of spinal mobility. She states she would like to continue therapy on her own as she feels like she has learned a lot from therapy. She will be discharged at this time. Plan of Care PT Services Indicated No Treatment Frequency and to be discharged Duration
== END 2022-03-24 12:55 | disposition home or self-care (01) ==
LOC: ANHGOSHPT 15:30
PROVIDERS: PCP Physician Assistant; Visit Provider Nurse Practitioner
DX: M54.2 Cervicalgia (principal)
CPT/HCPCS: 97110; 97140; 97161; 99199

== ENCOUNTER 2023-02-02 11:59 | Outpatient (CLI) | payer MEDICARE, SELFPAY ==
--- NOTE | ~2023-02-02 | MM_ITS ---
EXAMINATION: MM scrn genny implant BI w stephanie HISTORY: Screening mammogram TECHNIQUE: Craniocaudal and mediolateral oblique 3-D tomosynthesis images with implant displacement a nd synthetic 2-D images were generated. Craniocaudal and mediolateral oblique views of the breasts wi thout implant displacement were obtained using full field digital mammography. CAD analysis was submi tted and interpreted. COMPARISON: No prior mammogram is available for comparison at this institution. BREAST PARENCHYMAL COMPOSITION: The breasts are heterogeneously dense, which may obscure small masses . FINDINGS: Status post bilateral augmentation mammoplasty. There is no evidence of suspicious mass, ca lcification, or architectural distortion to suggest malignancy in either breast.. IMPRESSION: 1. No mammographic evidence of malignancy. 2. Recommend routine screening mammography in one year. BI-RADS Category 1: Negative Reviewed, dictated and finalized at location [facility]. HER SHAVER
== END 2023-02-02 12:00 | disposition home or self-care (01) ==
LOC: CHSIMG 12:01
PROVIDERS: PCP Physician Assistant; Visit Provider Surgery Plastic and Reconstructive Surgery
DX: Z12.31 Encounter for screening mammogram for malignant neoplasm of breast (principal)
CPT/HCPCS: 77063; 77067

== ENCOUNTER 2023-02-19 00:18 | Day surgery (SDC) | payer OTHER, SELFPAY ==
[2023-02-16 09:44] VITALS: BMI 24.5
--- NOTE | 2023-02-16 09:54 | PC.NURSE ---
Report to the Outpatient Waiting Room, entrance under the green pavilion located off [facility], at time 9:00 on date 02/19/23. Planned Procedure Time: 11:00. Time changes happen often and if your time is changed the preop area will call you the afternoon before. - You and your visitor will be asked to self-screen and do not enter if you have any COVID symptoms. - A mask is optional within the hospital at this time. Patients may have clear liquids (water, carbonated beverages, clear teas, apple juice) until 3 hours prior to surgery with a maximum of 20 ounces. - No food from midnight until time of surgery Take the following medications with a SIP of water the morning of surgery: METOPROLOL, TYLENOL/LORAZEPAM IF NEEDED DO NOT STOP ANY OF YOUR OTHER PRESCRIPTION MEDICATIONS PRIOR TO SURGERY ?EXCEPT THE FOLLOWING Medications to discontinue per physician: VITAMINS/SUPPLEMENTS Date to take last dose: NO MORE UNTIL AFTER SURGERY Please no make-up, nail nigerian, hairspray, perfume, deodorant, or body powder the day of surgery. No jewelry (including any body piercings) or valuables the day of surgery, leave them at home. Please take a shower or bath the night before, or the morning of, surgery with an antibacterial soap. Wear comfortable, loose fitting clothing. - Jewelry must be removed prior to entering the operating room. Rings and piercings that are not removed may be cut off. - The hospital will not accept responsibility for valuables. - Please leave all valuables, including medications, at home the day of surgery. If you are going home after surgery, a licensed driver starting gate must drive you home. - NO public transportation without another adult if you receive anesthesia. - We recommend that an adult stay with you for 24 hours following discharge. - We also recommend that you do not drive, make important decision, drink alcoholic beverages, or take any drugs that were not prescribed by your health care provider for at least 24 hours after your discharge time. Follow any additional instructions given to you from your surgeon. If you or anyone in your household have experienced Covid symptoms in the past week, please notify your surgeon or the nurse liaison at the phone number below for possible testing. Telephone instructions given to PT - JARED RIZZO and asked if any additional questions and then verbalized understanding. Patient advised to call surgeon office or pre surgery nurse liaison [phone] if any additional questions.
[2023-02-19] VITALS (10 sets, daily range): BP systolic 108–146; BP diastolic 58–88; PULSE 60–71; RESP 12–20; TEMP 36.1–36.7; O2SAT 95–100
--- NOTE | 2023-02-19 08:30 | ECG_ITS ---
Measurements Intervals [place] Rate: 63 P: 143 NH: 157 QRS: -42 QRSD: 109 T: 38 QT: 368 QTc: 379 Interpretive Statements ELECTRONIC ATRIAL PACEMAKER LEFT AXIS DEVIATION INCOMPLETE RIGHT BUNDLE BRANCH BLOCK DELAYED PRECORDIAL R/S TRANSITION BASELINE ARTIFACT- V5-V6 BORDERLINE ECG COMPARED TO ECG 01/18/2019 14:21:47 ELECTRONIC ATRIAL PACEMAKER NOW PRESENT Electronically Signed On 02-19-2023 10:24:00 HEAVY EQUIPMENT TECHNICIAN by Ty Houston D.O.
[2023-02-19] MEDS: LACTATED RINGERS 1,000 ML 30 ML IV CONT ×2 (09:30→11:47)
--- NOTE | 2023-02-19 09:51 | WPDHPUPDATE1 ---
History and Physical Update Update Date/Time: 02/19/23 09:51 History and Physical has been reviewed, including an updated exam of the patient. There are NO changes in the patient's condition. Risks, benefits, and alternatives have been discussed and questions answered. Patient agrees to proceed with procedure.
--- NOTE | 2023-02-19 09:52 | W.PM.PROC2 ---
Procedure Note - Detailed Date of Procedure 02/19/23 Pre-op Diagnosis hx breast augmentation Post-op Diagnosis Same Procedure Performed Bilateral implant removal Surgeon Ashish Pryor MD Anesthesia General Findings Bilateral textured McGhan implants Right - No evidence of rupture Left - Small intracapsular rupture Description of Procedure She is here for the above procedure. Preoperatively risks, benefits, alternatives were discussed in extensive detail. Want her to be very realistic about risks involved as well as expectations. We discussed options or drains with the procedure including all her options. She initially stated she declined pathology; however, we discussed this is great detail and after this [facility] (understanding the [facility] / fees are at her expense). She would prefer not to send and understands without sending to pathology we can not rule out malignancy. She understands the complexity of her cardiac diagnosis, defibrillator, and surgical procedure. Made sure answered everyone of her questions to her satisfaction again today. She voiced clear understanding. Consent was obtained. She was taken to the operating room placed supine on the operating room table. Anesthesia provided by anesthesiology. She was prepped and draped in the standard sterile fashion. Surgical time-out was. 1% lidocaine and 0.25% Marcaine with epinephrine was used to provide a field block. Fifteen blade used to excise along previous scar. Dissection was continued down to the capsules identified it is an elevated above the capsule for majority of the capsule. I used bipolar cautery throughout. At this point the implant and the capsule were removed. Capsule sent to pathology. I copiously irrigated with 3 L of saline solution on TUR tubing. Verified strict hemostasis. I closed with 2-0 PDS followed by 3-0 Stratafix in running subcuticular 4-0 Monocryl and tissue glue. Dressings and a surgical bra were placed. She tolerated the procedure well. Estimated Blood Loss 30 Drains No Packing No Pathology Yes (Bilateral capsules) Complications No immediate complications Condition Stable Disposition PACU
--- NOTE | 2023-02-19 10:02 | WPDANESEPPF ---
Anes - Initial Pre Proc Eval Procedure: Operation Date: 02/19/23 11:00 Proposed Procedures p Removal Bilateral Breast Implants with Capsulectomy - Ashish Pryor MD Date/Time: 02/19/23 10:02 Surgeon: Ashish Pryor MD Pre Op Diagnosis: hx breast augmentation Patient Data Age: 72 Gender: F Height: 1.55 m Weight: 55.8 kg Last Vital Signs Temp 36.7 C 02/19/23 09:03 Pulse 68 02/19/23 09:03 Resp 20 02/19/23 09:03 BP 146/88 H 02/19/23 09:03 Pulse Ox 100 02/19/23 09:03 O2 Del Method Room Air 02/19/23 09:03 Allergies Allergy/AdvReac Type Severity Reaction Status Date / Time No Known Allergies Allergy Verified 02/16/23 09:42 Home Medications Medication Instructions Recorded Confirmed Type metoprolol succinate 50 mg 150 mg PO DAILY 01/08/19 02/19/23 History tablet,extended release 24 hr acetaminophen 325 mg capsule 325 mg PO ONCE PRN Pain 04/12/19 02/19/23 History (Tylenol) ascorbic acid (vitamin C) 1,000 mg 1 g PO DAILY 04/12/19 02/19/23 History tablet (Vitamin C) cholecalciferol (vitamin D3) 25 25 mcg PO DAILY 04/18/19 02/19/23 History mcg (1,000 unit) chewable tablet lorazepam 0.5 mg tablet 0.5 mg PO DAILY PRN Anxiety 05/29/21 02/19/23 History diphenoxylate-atropine 2.5 1 tablet PO TID 02/16/23 02/19/23 History mg-0.025 mg tablet (Lomotil) magnesium 250 mg tablet 250 mg PO DAILY 02/16/23 02/19/23 History Patient hx anesthesia problems: none Family hx anesthesia problems: none Results Review: All pre-operative results and documents have been reviewed as part of the pre-operative evaluation. [facility] Past Medical History Medical History Anxiety Arthritis Arthritis of both hands Brugada syndrome Status post ICD insertion. She is a patient of Drs. Garza and Cruz at [facility]. Cardiac defibrillator in place Generator replaced within the past 2 years. Depression Diverticulosis Skin cancer History of basal cell carcinoma of the face. Surgical History Surgical History H/O shoulder surgery Right shoulder. History of abdominoplasty History of appendectomy At the age of 9. History of bowel resection small bowel resection 01/16/19 History of breast augmentation History of colonoscopy findings of diverticulosis History of dilation and curettage History of surgery on wrist bilateral anchovy type CMC arthroplasty Family History Family History Father Carcinoma of colon Alcoholism Grandparent Alcoholism Cancer Depression Social History Social History Social History: The patient lives in [place]. She lived is originally from [place] and lived in [place] before moving here in September 2015 to be closer to her grandchildren. She works for the [employer]. She smoked a pack of cigarettes per day for many years, but quit several years ago. She has a long history of alcoholism but has abstained for several years. She denies drug use. Primary care provider is TYREE Nicolas. She designates her daughter and son, Jennie Springer, as her surrogate decision makers and she wishes to be a full code. 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
[2023-02-19] MEDS: BUPivacaine HCL 0.25% PF 30 ML VIAL INFILTRATE (10:16)
[2023-02-19] MEDS: ceFAZolin 2 GM/D5W 50 ML 2 GM/50 ML BAG IVPB (10:16)
[2023-02-19] MEDS: LIDO 1%/EPINEPHRINE 1:100,000 50 ML VIAL 30 ML INFILTRATE (10:49)
--- NOTE | 2023-02-19 10:57 | SUR.OPER ---
magnet placed over defibrillator by anesthesia
[2023-02-19] MEDS: fentaNYL CITRATE INJ (*CRX) 100 MCG/2 ML VIAL 25 MCG IV PUSH ×4 (11:42→12:02)
[2023-02-19] MEDS: HYDROmorphone HCL INJ (*CRX) 1 MG/ML SYR IV PUSH ×2 (12:15→12:35)
--- NOTE | 2023-02-19 16:42 | SUR.PHASEII ---
1400: Vitals are stable. Patient is unhooked from monitors and waiting for ride.
== END 2023-02-19 14:24 | disposition home or self-care (01) ==
PROVIDERS: PCP Physician Assistant; Visit Provider Surgery Plastic and Reconstructive Surgery
PROC: 0HPT0JZ Removal of Synthetic Substitute from Right Breast, Open Approach (ICD-10-PCS; CPT 19371; principal; 2023-02-19 11:00)
DX: T85.41XA Breakdown (mechanical) of breast prosthesis and implant, initial encounter (principal); Y83.8 Other surgical procedures as the cause of abnormal reaction of the patient, or of later complication, without mention of misadventure at the time of the procedure; I49.8 Other specified cardiac arrhythmias; Z95.810 Presence of automatic (implantable) cardiac defibrillator; F32.A Depression, unspecified; F41.9 Anxiety disorder, unspecified; Z87.891 Personal history of nicotine dependence
CPT/HCPCS: 19371; 88184; 88304; 93005; J0690; J1100; J1170; J2250; J2405; J2704; J3010; J7120

== ENCOUNTER 2023-11-02 15:08 | Outpatient (CLI) | payer MEDICARE, SELFPAY ==
--- NOTE | ~2023-11-02 | XR_ITS ---
EXAMINATION: XR chest 2V, XR ribs LT 2V DATE: 11/02/2023 16:42 INDICATION: Left chest wall contusion TECHNIQUE: 1. PA and lateral views of the chest were obtained. 2. 3 views of the left ribs were obtained. COMPARISON: Chest radiograph dated 10/17/15 FINDINGS: The lungs are clear with no focal airspace opacities, pulmonary edema, pleural effusion or pneumothor ax. The cardiomediastinal silhouette is normal. Dual lead pacemaker/AICD seen with leads projecting o yoli the expected locations of the right atrium and right ventricle. Likely old healed right clavicle fracture with interfragmentary screw and plate and screw fixation. Mild lower thoracic levoscoliosis with mild to moderate spondylosis and lumbar dextroscoliosis with moderate to severe spondylosis. Non displaced age-indeterminate fractures of the lateral left fifth-seventh ribs seen on the oblique proj ection and obscured by the pacemaker on the frontal projections. IMPRESSION: 1. Nondisplaced age-indeterminate fractures of the lateral left fifth-seventh ribs. 2. No acute cardiopulmonary disease. Reviewed, dictated and finalized at location A. IMPRESSION: 1. Nondisplaced age-indeterminate fractures of the lateral left fifth-seventh r ibs. 2. No acute cardiopulmonary disease.
== END 2023-11-02 15:09 | disposition home or self-care (01) ==
LOC: ANHIMG 16:22
PROVIDERS: PCP Physician Assistant; Visit Provider Physician Assistant
DX: S20.212A Contusion of left front wall of thorax, initial encounter (principal); S22.42XA Multiple fractures of ribs, left side, initial encounter for closed fracture; X58.XXXA Exposure to other specified factors, initial encounter
CPT/HCPCS: 71046; 71100

== ENCOUNTER 2024-04-07 18:41 | Emergency (ER) | payer MEDICARE, SELFPAY ==
[2024-04-07 18:44] VITALS: BP 129/78; PULSE 96; RESP 16; TEMP 36.3; O2SAT 99
--- NOTE | 2024-04-07 18:49 | ED.ARRPALP ---
HPI - Arrhythmia/Palpitations General Chief Complaint: Arrhythmia/Palpitations Stated Complaint: palpitations Time Seen by Provider: 04/07/24 18:49 Focused HPI: This is a 73 year old female that presents to the ER for symptoms ongoing throughout the day today. Reports dizziness, nausea, palpitations. GENERAL: Well-appearing, well-nourished, and in no acute distress. HEAD: Normocephalic, atraumatic. CHEST: Clear to auscultation. ?No respiratory distress. HEART: Regular rate and rhythm.? NEURO: ?Alert and oriented x3. Patient screened in triage and initial orders placed.? ?Additional care and disposition to be based upon?diagnostic testing and treatment. Related Data Home Medications ?Medication ?Instructions ?Recorded ?Confirmed ?Last Taken ?Type metoprolol succinate 50 mg 150 mg PO DAILY 01/08/19 02/19/23 02/19/23 06:00 History tablet,extended release 24 hr acetaminophen 325 mg capsule 325 mg PO ONCE PRN Pain 04/12/19 02/19/23 02/18/23 History (Tylenol) ascorbic acid (vitamin C) 1,000 mg 1 g PO DAILY 04/12/19 02/19/23 02/16/23 History tablet (Vitamin C) cholecalciferol (vitamin D3) 25 25 mcg PO DAILY 04/18/19 02/19/23 02/16/23 History mcg (1,000 unit) chewable tablet lorazepam 0.5 mg tablet 0.5 mg PO DAILY PRN Anxiety 05/29/21 02/19/23 02/16/23 History diphenoxylate-atropine 2.5 1 tablet PO TID 02/16/23 02/19/23 02/19/23 06:00 History mg-0.025 mg tablet (Lomotil) magnesium 250 mg tablet 250 mg PO DAILY 02/16/23 02/19/23 02/16/23 History Allergies Allergy/AdvReac Type Severity Reaction Status Date / Time No Known Allergies Allergy Verified 04/07/24 18:41 PMFSH Past Medical History Medical History Anxiety Arthritis Arthritis of both hands Brugada syndrome Status post ICD insertion. She is a patient of Drs. Garza and Cruz at [facility]. Cardiac defibrillator in place Generator replaced within the past 2 years. Depression Diverticulosis Skin cancer History of basal cell carcinoma of the face. Surgical History Surgical History H/O shoulder surgery Right shoulder. History of abdominoplasty History of appendectomy At the age of 9. History of bowel resection small bowel resection 01/16/19 History of breast augmentation History of colonoscopy findings of diverticulosis History of dilation and curettage History of surgery on wrist bilateral anchovy type CMC arthroplasty Family History Family History Father Carcinoma of colon Alcoholism Grandparent Alcoholism Cancer Depression Social History Social History Social History: The patient lives in [place]. She lived is originally from [place] and lived in [place] before moving here in September 2015 to be closer to her grandchildren. She works for the [employer]. She smoked a pack of cigarettes per day for many years, but quit several years ago. She has a long history of alcoholism but has abstained for several years. She denies drug use. Primary care provider is TYREE Nicolas. She designates her daughter and son, Jennie Springer, as her surrogate decision makers and she wishes to be a full code. 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 Spiritual care concerns: No Agree to blood products: Yes Course Vital Signs Vital signs: Vital Signs Temperature 97.3 F L 04/07/24 18:44 Pulse Rate 96 04/07/24 18:44 Respiratory Rate 16 04/07/24 18:44 Blood Pressure 129/78 04/07/24 18:44 Pulse Oximetry 99 04/07/24 18:44 Oxygen Delivery Room Air 04/07/24 18:44 Temperature 97.3 F L 04/07/24 18:44 Pulse Rate 96 04/07/24 18:44 Respiratory Rate 16 04/07/24 18:44 Blood Pressure 129/78 04/07/24 18:44 Pulse Oximetry 99 04/07/24 18:44 Oxygen Delivery Room Air 04/07/24 18:44 MDM - Arrhythmia/Palpitations MDM Narrative Medical decision making narrative: Patient left after medical screening exam and initial workup and before any further evaluation or management Lab Data 04/07/24 18:54 04/07/24 18:54 Labs: Lab Results 04/07/24 Range/Units 18:54 WBC 8.9 (4.5-10.0) K/mm3 RBC 4.05 L (4.2-5.4) M/mm3 Hgb 13.4 (12.0-15.0) g/dL Hct 39.8 (37.0-47.0) % MCV 98.3 (80-100) fl MCH 33.1 (26-34) pg MCHC 33.7 (32-36) g/dl RDW 13.8 (11.5-14.5) % Plt Count 301 D (150-375) k/mm3 MPV 9.3 (7.4-10.4) fl Immature Gran % (Auto) 0.3 (0-0.5) % Neut % (Auto) 70.9 (45.5-73.1) % Lymph % (Auto) 21.4 (18.3-44.2) % [place] % (Auto) 7.0 (2.6-8.5) % Eos % (Auto) 0.0 (0-4.4) % Baso % (Auto) 0.4 (0.2-1.2) % Lymph # (Auto) 1.91 (0.9-3.2) K/mm3 [place] # (Auto) 0.6 (0.1-0.6) K/mm3 Eos # (Auto) 0.0 (0-0.3) K/mm3 Baso # (Auto) 0.0 (0.0-0.1) K/mm3 Abs Immat Gran (auto) 0.03 (0.00-0.031) K/mm3 Absolute Neuts (auto) 6.3 (1.3-6.7) K/mm3 Absolute Nucleated RBC 0.000 (0.0-0.012) K/mm3 Nucleated RBC % 0.0 (0.0-0.2) % PT 12.9 (11.1-14.7) Seconds INR 0.9 APTT 27.5 (22.3-36.8) Seconds Sodium 140 (137-145) mmol/L Potassium 4.1 (3.4-5.0) mmol/L Chloride 102 (98-107) mmol/L Carbon Dioxide 20 L (22-30) mmol/L Anion Gap 18 H (4-12) mmol/L BUN 20 H (7-17) mg/dL Creatinine 0.67 L (0.7-1.0) mg/dL Estim Creat Clear Calc 50 ml/min Estimated GFR > 60 (59 - ) Glucose 92 (65-110) mg/dL Calcium 9.7 (8.4-10.2) mg/dL Total Bilirubin 0.4 (0.2-1.3) mg/dL AST 29 (14-36) U/L ALT 29 (6-35) U/L Alkaline Phosphatase 149 H (38-126) U/L Troponin I < 0.012 (0.000-0.034) ng/mL Total Protein 8.0 (6.3-8.2) g/dL Albumin 4.6 (3.5-5.1) g/dL Lipase 190 (23-300) U/L Discharge Plan Discharge Clinical Impression: Palpitations Patient Disposition: [facility] After Seen by Prov Condition: Guarded Prognosis Patient Language: Swiss Prescriptions: No Action lorazepam 0.5 mg tablet 0.5 mg PO DAILY PRN (Reason: Anxiety) metoprolol succinate 50 mg tablet extended release 24 hr 150 mg PO DAILY ascorbic acid (vitamin C) [Vitamin C] 1,000 mg Tablet 1 g PO DAILY acetaminophen [Tylenol] 325 mg Capsule 325 mg PO ONCE PRN (Reason: Pain) cholecalciferol (vitamin D3) 25 mcg (1,000 unit) Tablet,Chewable 25 mcg PO DAILY magnesium 250 mg Tablet 250 mg PO DAILY diphenoxylate-atropine [Lomotil] 2.5-0.025 mg Tablet 1 tablet PO TID Follow-up/Referrals: Gris,RYAN Colby [Primary Care Provider] -
[2024-04-07 19:03] LABS: Basophils Percent Auto 0.4 % (0.2-1.2); Hematocrit 39.8 % (37.0-47.0); Hemoglobin 13.4 g/dL (12.0-15.0); Immature Granulocyte Absolute 0.03 K/mm3 (0.00-0.031); Immature Granulocyte Percent A 0.3 % (0-0.5); Lymphocytes Absolute Auto 1.91 K/mm3 (0.9-3.2); Lymphocytes Percent Auto 21.4 % (18.3-44.2); Mean Corpuscular HGB Conc 33.7 g/dl (32-36); Mean Corpuscular Hemoglobin 33.1 pg (26-34); Mean Corpuscular Volume 98.3 fl (80-100); Mean Platelet Volume 9.3 fl (7.4-10.4); Monocytes Absolute Auto 0.6 K/mm3 (0.1-0.6); Neutrophils Absolute Auto 6.3 K/mm3 (1.3-6.7); Neutrophils Percent Auto 70.9 % (45.5-73.1); Platelet Count Result 301 k/mm3 (150-375); Red Blood Count 4.05 M/mm3 (4.2-5.4); Red Cell Distribution Width 13.8 % (11.5-14.5); White Blood Count 8.9 K/mm3 (4.5-10.0)
[2024-04-07 19:18] LABS: INR 0.9; Prothrombin Time 12.9 Seconds (11.1-14.7)
[2024-04-07 19:19] LABS: Partial Thromboplastin Time 27.5 Seconds (22.3-36.8)
[2024-04-07 19:21] LABS: Alanine Aminotransferase 29 U/L (6-35); Albumin Level 4.6 g/dL (3.5-5.1); Alkaline Phosphatase 149 U/L (38-126); Anion Gap 18 mmol/L (4-12); Aspartate Amino Transferase 29 U/L (14-36); Bilirubin,Total 0.4 mg/dL (0.2-1.3); Blood Urea Nitrogen 20 mg/dL (7-17); Calcium 9.7 mg/dL (8.4-10.2); Carbon Dioxide 20 mmol/L (22-30); Chloride 102 mmol/L (98-107); Estimated CRCL calculation 50 ml/min; Estimated Glomerular Filt Rate > 60; Glucose 92 mg/dL (65-110); Lipase 190 U/L (23-300); Potassium 4.1 mmol/L (3.4-5.0); Sodium 140 mmol/L (137-145)
[2024-04-07 19:32] LABS: Troponin I < 0.012 ng/mL (0.000-0.034)
--- NOTE | 2024-04-07 20:04 | PC.NURSE ---
pt to desk, states she is leaving. pt advised to return if symptoms get worse, verbalized understanding
== END 2024-04-07 20:04 | disposition left against medical advice (07) ==
PROVIDERS: Emergency Medicine; Emergency Provider Physician Assistant; PCP Physician Assistant
DX: R00.2 Palpitations (principal); I49.8 Other specified cardiac arrhythmias; M19.042 Primary osteoarthritis, left hand; M19.041 Primary osteoarthritis, right hand; F32.A Depression, unspecified; F41.9 Anxiety disorder, unspecified; Z95.810 Presence of automatic (implantable) cardiac defibrillator; Z87.891 Personal history of nicotine dependence; Z85.828 Personal history of other malignant neoplasm of skin; Z90.49 Acquired absence of other specified parts of digestive tract; Z79.899 Other long term (current) drug therapy; R94.31 Abnormal electrocardiogram [ECG] [EKG]; I51.7 Cardiomegaly; I45.10 Unspecified right bundle-branch block
CPT/HCPCS: 36415; 80053; 83690; 84484; 85025; 85610; 85730; 93005; 99284

== ENCOUNTER 2024-06-09 02:51 | Emergency (ER) | payer MEDICARE, SELFPAY ==
--- NOTE | 2024-06-09 02:53 | ECG_ITS ---
Test Date: 2024-06-09 02:51:58 Measurements Intervals [place] Rate: 91 P: 54 CT: 134 QRS: -42 QRSD: 125 T: 65 QT: 357 QTc: 440 Interpretive Statements SINUS RHYTHM MARKED LEFT AXIS DEVIATION [QRS AXIS < -30] POSSIBLE RIGHT VENTRICULAR CONDUCTION DELAY [RSR (QR) IN V1/V2] Compared to ECG 04/07/2024 18:49:05 Incomplete right bundle-branch block no longer present Left ventricular hypertrophy no longer present ST (T wave) deviation no longer present Electronically Signed On 06-09-2024 19:08:33 CDT by Jannie Wilson
[2024-06-09 03:00] LABS: Glucose Point of Care 88 mg/dl (65-105)
[2024-06-09 03:04] VITALS: BP 129/73; PULSE 94; RESP 16; O2SAT 96
[2024-06-09] MEDS: SODIUM CHLORIDE 0.9% IV 1,000 ML 999 ML IV CONT ×2 (03:19→03:56)
[2024-06-09 03:23] LABS: Basophils Percent Auto 0.4 % (0.2-1.2); Hemoglobin 13.5 g/dL (12.0-15.0); Immature Granulocyte Absolute 0.04 K/mm3 (0.00-0.031); Immature Granulocyte Percent A 0.4 % (0-0.5); Lymphocytes Absolute Auto 0.94 K/mm3 (0.9-3.2); Lymphocytes Percent Auto 8.9 % (18.3-44.2); Mean Corpuscular HGB Conc 32.9 g/dl (32-36); Mean Corpuscular Hemoglobin 32.4 pg (26-34); Mean Corpuscular Volume 98.3 fl (80-100); Mean Platelet Volume 9.1 fl (7.4-10.4); Monocytes Absolute Auto 0.3 K/mm3 (0.1-0.6); Monocytes Percent Auto 2.4 % (2.6-8.5); Neutrophils Absolute Auto 9.3 K/mm3 (1.3-6.7); Neutrophils Percent Auto 87.9 % (45.5-73.1); Platelet Count Result 312 k/mm3 (150-375); Red Blood Count 4.17 M/mm3 (4.2-5.4); Red Cell Distribution Width 14.2 % (11.5-14.5); White Blood Count 10.6 K/mm3 (4.5-10.0)
[2024-06-09] MEDS: ONDANSETRON INJ 4 MG/2 ML VIAL IV PUSH (03:25)
[2024-06-09 03:33] LABS: Ethanol 84 mg/dL (<10)
[2024-06-09 03:34] LABS: Alanine Aminotransferase 41 U/L (6-35); Albumin Level 5.1 g/dL (3.5-5.1); Alkaline Phosphatase 150 U/L (38-126); Anion Gap 25 mmol/L (4-12); Aspartate Amino Transferase 46 U/L (14-36); Bilirubin,Total 0.4 mg/dL (0.2-1.3); Blood Urea Nitrogen 21 mg/dL (7-17); Calcium 9.4 mg/dL (8.4-10.2); Carbon Dioxide 15 mmol/L (22-30); Chloride 102 mmol/L (98-107); Estimated CRCL calculation 54 ml/min; Estimated Glomerular Filt Rate > 60; Glucose 80 mg/dL (65-110); Lipase 88 U/L (23-300); Magnesium 1.8 mg/dL (1.6-2.3); Potassium 4.1 mmol/L (3.4-5.0); Sodium 142 mmol/L (137-145)
--- OUTSIDE RECORDS SUMMARY | 2024-06-09 03:36 | XMS_ITS | Data Portability ---
Author Organization [facility] SergeMD, Main Office Address [address] [place] [address] Assessment No assessment recorded. Plan of Treatment Reminders Order Date Submit Date Provider Last Modified By Organization Details Last Modified Time Details Appointments None recorded. Lab CBC w/ auto diff 2022 023 [facility], [address] [place] [address], [id number], 3 10:03:20 BMP, serum or plasma 2022 023 [facility], [address] [place] [address], [address], 3 10:03:21 hepatic function panel, serum 2022 023 [facility], [address] [place] [address], [address], 3 10:03:21 TSH + free T4, serum 2022 023 [facility], [address] [place] [address], [address], 3 10:03:20 lipid panel, serum 2022 023 [facility], [address] [place] [address], [address], 3 10:03:21 Referral None recorded. Procedures None recorded. Surgeries None recorded. Imaging None recorded. Medication Orders diphenoxyl ate-atropi ne 2.5 mg-0.025 mg tablet 2022 023 [facility] [place], [address] [facility] , [place], [place], [id number], 10:00:54 Patient TargetsNo targets recorded. Patient InstructionsNo instructions recorded. Reason for Referral None Reported. Results Created Date Observation Date Name Description Value Unit Range Abnormal Flag Note LastModifiedBy Organization Detail LastModifiedTime 02/26/19 22 02/27/2021 URINE CULTU RE, SILVERIO NE urine culture, routine final report Not Available [facility] ([facility]) [address] [place], [address], 02/28/2021 03:07:50 02/26/19 22 02/27/2021 URINE CULTU RE, SILVERIO NE result 1 commen t Mixed uroge nital hero Less than 10,00 0 colon ies/m L Not Available [facility] ([facility]) [address] [place], [address], 02/28/2021 03:07:50 02/26/19 22 02/27/2021 LUCIA+L IPASE amylase 105 U/L 31-110 Not Available [facility] ([facility]) [address] [place], [address], 02/28/2021 03:07:50 02/26/19 22 02/27/2021 LUCIA+L IPASE lipase 58 U/L 14-72 Not Available [facility] ([facility]) [address] [place], [address], 02/28/2021 03:07:50 02/26/19 22 02/27/2021 HEPAT IC FUNCT ION PANEL (7) protein, total 7.4 g/dL 6.0-8. 5 Not Available [facility] ([facility]) [address] [place], [address], 02/28/2021 03:07:50 02/26/19 22 02/27/2021 HEPAT IC FUNCT ION PANEL (7) albumin 4.7 g/dL 3.8-4. 8 Not Available [facility] ([facility]) [address] [facility] [place], [address], 02/28/2021 03:07:50 02/26/19 22 02/27/2021 HEPAT IC FUNCT ION PANEL (7) bilirubin, total 0.4 mg/dL 0.0-1. 2 Not Available [facility] ([facility]) [address] [facility] [place], [address], 02/28/2021 03:07:50 02/26/19 22 02/27/2021 HEPAT IC FUNCT ION PANEL (7) bilirubin, direct 0.12 mg/dL 0.00-0 .40 Not Available [facility] ([facility]) [address] [facility] [place], [address], 02/28/2021 03:07:50 02/26/19 22 02/27/2021 HEPAT IC FUNCT ION PANEL (7) alkaline phosphatase 105 IU/L 44-121 Not Available [facility]) [address] [facility] [place], [address], 02/28/2021 03:07:50 02/26/19 22 02/27/2021 HEPAT IC FUNCT ION PANEL (7) AST (SGOT) 21 IU/L 0-40 Not Available [facility] ([facility]) [address] [place], [address], 02/28/2021 03:07:50 02/26/19 22 02/27/2021 HEPAT IC FUNCT ION PANEL (7) ALT (SGPT) 21 IU/L 0-32 Not Available [facility] ([facility]) [address] [place], [address], 02/28/2021 03:07:50 02/26/19 22 02/27/2021 BASIC METAB OLIC PANEL (8) glucose 94 mg/dL 65-99 Not Available [facility] ([facility]) [address] [facility], [place], [address], 02/28/2021 03:07:49 02/26/19 22 02/27/2021 BASIC METAB OLIC PANEL (8) BUN 15 mg/dL 8-27 Not Available [facility] ([facility]) [address] [facility], [place], [address], 02/28/2021 03:07:49 02/26/19 22 02/27/2021 BASIC METAB OLIC PANEL (8) creatinine 0.77 mg/dL 0.57-1 .00 Not Available [facility] ([facility]) [address] [facility], [place], [address], 02/28/2021 03:07:49 02/26/19 22 02/27/2021 BASIC METAB OLIC PANEL (8) eGFR if nonafricn AM 80 mL/mi n/1.7 3 >59 Not Available [facility] ([facility]) [address] [facility], [place], [address], 02/28/2021 03:07:49 02/26/19 22 02/27/2021 BASIC METAB OLIC PANEL (8) eGFR if africn AM 92 mL/mi n/1.7 3 >59 In accor dance with recom menda tions from the NKF-A SN Task force , [facility] is in the proce ss of updat ing its eGFR calcu latio n to the 2020 CKD-E PI creat inine equat ion that estim ates kidne y funct ion witho ut a race varia ble. Not Available [facility] ([facility]) [address] [facility], [place], [address], 02/28/2021 03:07:49 02/26/19 22 02/27/2021 BASIC METAB OLIC PANEL (8) BUN/creatini ne ratio 26 01-28 Not Available [facility] ([facility]) [address] [facility], [place], [address], 02/28/2021 03:07:49 02/26/19 22 02/27/2021 BASIC METAB OLIC PANEL (8) sodium 137 mmol/ L 134-14 4 Not Available [facility] ([facility]) [address] [place], [address], 02/28/2021 03:07:49 02/26/19 22 02/27/2021 BASIC METAB OLIC PANEL (8) potassium 4.2 mmol/ L 3.5-5. 2 Not Available [facility] ([facility]) [address] [place], [address], 02/28/2021 03:07:49 02/26/19 22 02/27/2021 BASIC METAB OLIC PANEL (8) chloride 98 mmol/ L 96-106 Not Available [facility] ([facility]) [address] [place], [address], 02/28/2021 03:07:49 02/26/19 22 02/27/2021 BASIC METAB OLIC PANEL (8) carbon dioxide, total 24 mmol/ L 20-29 Not Available [facility] ([facility]) [address] [place], [address], 02/28/2021 03:07:49 02/26/19 22 02/27/2021 BASIC METAB OLIC PANEL (8) calcium 9.6 mg/dL 8.7-10 .3 Not Available [facility] ([facility]) [address] [place], [address], 02/28/2021 03:07:49 02/26/19 22 02/27/2021 URINA LYSIS , ROUTI NE specific gravity 1.008 1.005- 1.030 Not Available [facility] ([facility]) [address] [place], [address], 02/28/2021 03:07:49 02/26/19 22 02/27/2021 URINA LYSIS , ROUTI NE pH 6.5 5.0-7. 5 Not Available [facility] ([facility]) [address] [facility], [place], [address], 02/28/2021 03:07:49 02/26/19 22 02/27/2021 URINA LYSIS , ROUTI NE urine-color yellow yellow Not Available [facility] ([facility]) [address] [facility], [place], [address], 02/28/2021 03:07:49 02/26/19 22 02/27/2021 URINA LYSIS , ROUTI NE appearance clear clear Not Available [facility] ([facility]) [address] [place], [address], 02/28/2021 03:07:49 02/26/19 22 02/27/2021 URINA LYSIS , ROUTI NE WBC esterase negati ve negati ve Not Available [facility] ([facility]) [address] [place], [address], 02/28/2021 03:07:49 02/26/19 22 02/27/2021 URINA LYSIS , ROUTI NE protein negati ve negati ve/tra ce Not Available [facility] ([facility]) [address] [place], [address], 02/28/2021 03:07:49 02/26/19 22 02/27/2021 URINA LYSIS , ROUTI NE glucose negati ve negati ve Not Available [facility] ([facility]) [address] [place], [address], 02/28/2021 03:07:49 02/26/19 22 02/27/2021 URINA LYSIS , ROUTI NE ketones negati ve negati ve Not Available [facility] ([facility]) [address] [place], [address], 02/28/2021 03:07:49 02/26/19 22 02/27/2021 URINA LYSIS , ROUTI NE occult blood negati ve negati ve Not Available [facility] ([facility]) [address] [place], [address], 02/28/2021 03:07:49 02/26/19 22 02/27/2021 URINA LYSIS , ROUTI NE bilirubin negati ve negati ve Not Available [facility] ([facility]) [address] [facility], [place], [address], 02/28/2021 03:07:49 02/26/19 22 02/27/2021 URINA LYSIS , ROUTI NE urobilinogen ,semi-qn 0.2 mg/dL 0.2-1. 0 Not Available [facility] ([facility]) [address] [facility], [place], [address], 02/28/2021 03:07:49 02/26/19 22 02/27/2021 URINA LYSIS , ROUTI NE nitrite, urine negati ve negati ve Not Available [facility] ([facility]) [address] [place], [address], 02/28/2021 03:07:49 02/26/19 22 02/27/2021 URINA LYSIS , ROUTI NE microscopic examination commen t Micro scopi c not indic ated and not perfo rmed. Not Available [facility] ([facility]) [address] [facility], [place], [address], 02/28/2021 03:07:49 02/26/19 22 02/27/2021 CBC WITH DIFFE RENTI AL/PL ATELE T WBC 4.8 x10e3 /uL 3.4-10 .8 Not Available [facility] ([facility]) [address] [facility], [place], [address], 02/28/2021 03:07:48 02/26/19 22 02/27/2021 CBC WITH DIFFE RENTI AL/PL ATELE T RBC 3.82 x10e6 /uL 3.77-5 .28 Not Available [facility] ([facility]) [address] [facility], [place], [address], 02/28/2021 03:07:48 02/26/19 22 02/27/2021 CBC WITH DIFFE RENTI AL/PL ATELE T hemoglobin 12.7 g/dL 11.1-1 5.9 Not Available [facility] ([facility]) [address] [facility], [place], [address], 02/28/2021 03:07:48 02/26/19 22 02/27/2021 CBC WITH DIFFE RENTI AL/PL ATELE T hematocrit 36.4 % 34.0-4 6.6 Not Available [facility] ([facility]) [address] [facility], [place], [address], 02/28/2021 03:07:48 02/26/19 22 02/27/2021 CBC WITH DIFFE RENTI AL/PL ATELE T MCV 95 fL 79-97 Not Available [facility] ([facility]) [address] [place], [address], 02/28/2021 03:07:48 02/26/19 22 02/27/2021 CBC WITH DIFFE RENTI AL/PL ATELE T MCH 33.2 pg 26.6-3 3.0 above high normal Not Available [facility] ([facility]) [address] [place], [address], 02/28/2021 03:07:48 02/26/19 22 02/27/2021 CBC WITH DIFFE RENTI AL/PL ATELE T MCHC 34.9 g/dL 31.5-3 5.7 Not Available [facility] ([facility]) [address] [place], [address], 02/28/2021 03:07:48 02/26/19 22 02/27/2021 CBC WITH DIFFE RENTI AL/PL ATELE T RDW 13.0 % 11.7-1 5.4 Not Available [facility] ([facility]) [address] [facility], [place], [address], 02/28/2021 03:07:48 02/26/19 22 02/27/2021 CBC WITH DIFFE RENTI AL/PL ATELE T platelets 275 x10e3 /uL 150-45 0 Not Available [facility] ([facility]) [address] [facility], [place], [address], 02/28/2021 03:07:48 02/26/19 22 02/27/2021 CBC WITH DIFFE RENTI AL/PL ATELE T neutrophils 51 % not estab. Not Available [facility] ([facility]) [address] [facility], [place], [address], 02/28/2021 03:07:48 02/26/19 22 02/27/2021 CBC WITH DIFFE RENTI AL/PL ATELE T lymphs 35 % not estab. Not Available [facility] ([facility]) [address] [facility], [place], [address], 02/28/2021 03:07:48 02/26/19 22 02/27/2021 CBC WITH DIFFE RENTI AL/PL ATELE T monocytes 12 % not estab. Not Available [facility] ([facility]) [address] [facility], [place], [address], 02/28/2021 03:07:48 02/26/19 22 02/27/2021 CBC WITH DIFFE RENTI AL/PL ATELE T eos 1 % not estab. Not Available [facility] ([facility]) [address] [facility], [place], [address], 02/28/2021 03:07:48 02/26/19 22 02/27/2021 CBC WITH DIFFE RENTI AL/PL ATELE T basos 1 % not estab. Not Available [facility] (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) [address] [place], [address], 02/28/2021 03:07:48 02/26/19 22 02/27/2021 CBC WITH DIFFE RENTI AL/PL ATELE T neutrophils (absolute) 2.5 x10e3 /uL 1.4-7. 0 Not Available [facility] ([facility]) [address] [place], [address], 02/28/2021 03:07:48 02/26/19 22 02/27/2021 CBC WITH DIFFE RENTI AL/PL ATELE T lymphs (absolute) 1.7 x10e3 /uL 0.7-3. 1 Not Available [facility] ([facility]) [address] [place], [address], 02/28/2021 03:07:48 02/26/19 22 02/27/2021 CBC WITH DIFFE RENTI AL/PL ATELE T monocytes(ab solute) 0.6 x10e3 /uL 0.1-0. 9 Not Available [facility] ([facility]) [address] [place], [address], 02/28/2021 03:07:48 02/26/19 22 02/27/2021 CBC WITH DIFFE RENTI AL/PL ATELE T eos (absolute) 0.0 x10e3 /uL 0.0-0. 4 Not Available [facility] ([facility]) [address] [place], [address], 02/28/2021 03:07:48 02/26/19 22 02/27/2021 CBC WITH DIFFE RENTI AL/PL ATELE T baso (absolute) 0.0 x10e3 /uL 0.0-0. 2 Not Available [facility] ([facility]) [address] [facility], [place], [address], 02/28/2021 03:07:48 02/26/19 22 02/27/2021 CBC WITH DIFFE RENTI AL/PL ATELE T immature granulocytes 0 % not estab. Not Available [facility] ([facility]) [address] [facility], [place], [address], 02/28/2021 03:07:48 02/26/19 22 02/27/2021 CBC WITH DIFFE RENTI AL/PL ATELE T immature grans (abs) 0.0 x10e3 /uL 0.0-0. 1 Not Available [facility] ([facility]) [address] [facility], [place], [address], 02/28/2021 03:07:48 02/26/19 22 02/27/2021 CBC WITH DIFFE RENTI AL/PL ATELE T NRBC senior ux developer Not Available [facility] ([facility]) [address] [facility], [place], [address], 02/28/2021 03:07:48 02/26/19 22 02/27/2021 CBC WITH DIFFE RENTI AL/PL ATELE T hematology comments: senior ux developer Not Available [facility] ([facility]) [address] [facility], [place], [address], 02/28/2021 03:07:48 02/24/19 22 02/24/2021 NM, hepat obili do scan No observ ation record ed. [id number] [facility] [address] [place] [address] [facility] [facility], [place], [address], 04/08/2022 19:48:13 02/25/19 22 02/25/2021 US, singh calderon r No observ ation record ed. [id number] [facility] ([facility]) [address] [place] [address] [facility] [facility], [place], [address], 04/08/2022 19:48:13 08/28/19 22 08/27/2021 RF, small bowel follo w-thr ough study No observ ation record ed. [id number] [facility] ([facility]) [address] [facility] [address], [place], [address], 04/08/2022 19:48:13 09/19/19 22 08/18/2021 CT, abdom en + pelvi s, w/ contr ast No observ ation record ed. [id number] [facility] [address], [place], [address], 04/08/2022 19:48:13 02/06/20 23 02/02/2023 MAMMO , scree amaya, digit al, bilat eral No observ ation record ed. BARCODE Not Available 2022 16:31:32 Result Notes None recorded. Problems Name Problem SNOMED Code Status Onset Date Resolution Date Notes Provider Name and Address Organization Details Recorded Time Abnormal urine 872034489 Active 2021 Not Available [facility] 3 19:46:45 Irritable bowel syndrome 45216873 Active 2021 Not Available [facility] 3 19:46:45 Acquired dilation of bile duct 1669738976356 108 Active 2021 Not Available [facility] 3 19:46:45 Diverticul itis of colon 685610764 Active 2021 Not Available [facility] 3 19:46:46 Bacterial conjunctiv itis 895129839 Active 2022 Not Available [facility] 3 19:46:46 Irritable bowel syndrome with diarrhea 541410516 Active 2022 Not Available [facility] 3 19:46:46 Generalize d anxiety disorder 02248980 Active 2021 Not Available [facility] 3 19:46:46 Low back pain 095030527 Active 2021 Not Available [facility] 3 19:46:46 Diverticul ar disease of colon 550829962 Active 2021 Not Available [facility] 3 19:46:46 Compressio n fracture of lumbar spine 940971389 Active 2021 Not Available [facility] 3 19:46:46 Partial obstructio n of small bowel 830567347 Active 2021 Not Available [facility] 3 19:46:46 Anxiety 16103194 Active 2019 Not Available [facility] 3 19:46:46 Hyperlipid emia 92994295 Active 2021 Not Available [facility] 3 19:46:46 Diarrhea 21071111 Active 2021 Not Available [facility] 3 19:46:46 Upper abdominal pain 38662825 Active 2021 Not Available [facility] 3 19:46:46 Acute urinary tract infection 846130282 Active 2022 TYREE Nicolas [address] [place] [address], [facility] [address], [place], [address] , [facility] 12:45:22 Problem Notes None recorded. Procedures Surgical History Date Name Laterality Status Provider Name and Address Organization Details Recorded Time 020 colonoscopy completed Not Available [facility] 04/08/2022 19:45:52 019 Gastrointestinal Surgery completed Not Available [facility] 04/08/2022 19:45:52 016 Date of Last Colonoscopy completed Not Available [facility] 04/08/2022 19:45:51 Appendectomy completed Not Available [facility] 04/08/2022 19:45:52 Orthopedic Surgery completed Not Available [facility] 04/08/2022 19:45:52 Cardiovascular Procedure completed Not Available [facility] 04/08/2022 19:45:52 OPHTHALMIC TECHNOLOGIST Surgery completed Not Available [facility] 04/08/2022 19:45:52 Orthopedic Surgery completed Not Available [facility] 04/08/2022 19:45:52 Breast Implants completed Not Available [facility] 04/08/2022 19:45:52 Imaging Results Imaging Date Name Status LastModified by Organization Details LastModified Time 02/24/2021 NM, hepatobiliary scan completed [id number], [place], [address], 04/08/2022 19:48:13 02/25/2021 US, gallbladder completed [id number] [facility] ([facility]) [address] [place] [address] [address], [place], [address], 04/08/2022 19:48:13 08/27/2021 RF, small bowel follow-through study completed [id number] [facility] ([facility]) [address] [place] [address] [address], [place], [address], 04/08/2022 19:48:13 08/18/2021 CT, abdomen + pelvis, w/ contrast completed [id number] [facility] [place], [address], 04/08/2022 19:48:13 02/02/2023 MAMMO, screening, digital, bilateral completed BARCODE Information not available 02/05/2023 16:31:32 Procedure Notes None recorded. Medical Equipment None Reported. Allergies No known drug allergies Medications Name Sig Start Date Stop Date Status Note LastModified by Organization Details LastModified Time ofloxacin 0.3 % eye drops INSTILL 1 DROP INTO AFFECTED EYE(S) BY OPHTHALM IC ROUTE 4 TIMES PER DAY active Not Available Not Available No t Available metoprolo l succinate ER 50 mg tablet,ex tended release 24 hr one tab daily active Not Available Not Available No t Available metoprolo l succinate ER 100 mg tablet,ex tended release 24 hr active Not Available Not Available Not Available diphenoxy late-atro pine 2.5 mg-0.025 mg tablet Take 1 Tablet by mouth 3 times daily as needed. 2023 active Not Available Not Available Not Avai lable metronida zole 500 mg tablet 08/08 completed Not Available Not Available Not Available acetamino phen 300 mg-codein e 30 mg tablet Take 1 tablet every 8 hours by oral route as needed. 08/18 completed Not Available Not Available Not Available triamcino lone acetonide 0.1 % topical cream 05/12 completed Not Available Not Available Not Available alprazola m 0.25 mg tablet one tab po qhs PRN only anxiety 06/23 completed Not Available Not Available Not Available lorazepam 0.5 mg tablet Take 1 Tablet (0.5 mg) by mouth 3 times daily as needed. active Not Available Not Available No t Available tobramyci n 0.3 % eye drops INSTILL 1 DROP INTO AFFECTED EYE(S) BY OPHTHALM IC ROUTE EVERY 4 HOURS PRN active Not Available Not Available No t Available ondansetr on 4 mg disintegr ating tablet 08/08 completed Not Available Not Available Not Available amoxicill in 875 mg-potass ium clavulana te 125 mg tablet Take 1 tablet every 12 hours by oral route. active Not Available Not Available No t Available magnesium 200 mg tablet takes 400mg daily 2017 active Not Available Not Available Not Avai lable Vigamox 0.5 % eye drops INSTILL 1 DROP INTO AFFECTED EYE(S) BY OPHTHALM IC ROUTE 3 TIMES PER DAY 09/11 completed Not Available Not Available Not Available rosuvasta tin 5 mg tablet Take 1 tablet every other day by oral route at bedtime. 08/18 completed Not Available Not Available Not Available nitrofura ntoin monohydra te/macroc rystals 100 mg capsule Take 1 capsule every 12 hours by oral route. active Not Available Not Available No t Available Lomotil active Not Available Not Avail able Not Available Xifaxan 550 mg tablet Take 1 tablet 3 times a day by oral route for 10 days. 09/11 completed Not Available Not Available Not Available metoprolo l succ 50 mg-hydroc hlorothia zide 12.5 mg tablet,ex t.rel 24 hr 05/12 completed 3 tablets once daily Not Available Not Available Not Available metoprolo l succinate ER 50 mg capsule sprinkle, ext. release 24 hr Take 3 capsules every day by oral route. 11/09 completed Not Available Not Available Not Available Fluzone High-Dose [id number] (PF) 180 mcg/0.5 mL intramusc ular syringe 05/12 completed Not Available Not Available Not Available ID NOW COVID-19 Test Kit TEST DIRECTED TODAY 02/14 completed Not Available Not Available Not Available Flucelvax Quad (PF) 60 mcg (15 mcg x 4)/0.5 mL IM syringe 02/20 completed Not Available Not Available Not Available Vitals Date Recorded Body mass index (BMI) Body height Oxygen saturation Oxygen saturation in Arterial blood by Pulse oximetry Heart rate Respiratory rate Body temperature Body weight Systolic blood pressure Diastolic blood pressure Provider Name and Address Organization Details Last Updated DateTime 2 25.6 kg/m2 160.02 cm 98 % 98 % 65 /min 16 /min 97.6 [degF] 04137.1 8 g 132 mm[Hg] 88 mm[Hg] Not Available [facility] 3 19:46:14 Date Recorded Body mass index (BMI) Body height Oxygen saturation Oxygen saturation in Arterial blood by Pulse oximetry Heart rate Body temperature Body weight Systolic blood pressure Diastolic blood pressure Provider Name and Address Organization Details Last Updated DateTime 3 24.1 kg/m2 160.02 cm 99 % 99 % 77 /min 97.9 [degF] 85273.5 6 g 128 mm[Hg] 90 mm[Hg] Not Available [facility] 3 19:46:14 Date Recorded Body height Provider Name an d Address Organization Details Last Updated DateTime 03/12/2021 160.02 cm Not Available [facility] 3 19:46:14 Date Recorded Body height Provider Name an d Address Organization Details Last Updated DateTime 10/17/2021 160.02 cm Not Available [facility] 3 19:46:14 Date Recorded Body height Body temperature Body mass index (BMI) Body weight Respiratory rate Oxygen saturation Oxygen saturation in Arterial blood by Pulse oximetry Heart rate Systolic blood pressure Diastolic blood pressure Provider Name and Address Organization Details Last Updated DateTime 3 160.02 cm 97.5 [degF] 24 kg/m2 90289.7 7 g 16 /min 98 % 98 % 82 /min 122 mm[Hg] 80 mm[Hg] MARTINEZ Hogue [employer] [facility] 3 09:25:38 Social History Question Answer Notes LastModified by Organizat ion Details LastModified Time Tobacco Smoking Status Former Smoker Not Available [facility] 04/08/2022 19:45:44 What Is Your Level Of Alcohol Consumption? None [id number] Information not available 04/08/2022 Are You Blind Or Do You Have Difficulty Seeing? Yes [id number] Information not available 04/08/2022 What Is Your Level Of Caffeine Consumption? Moderate [id number] Information not available 04/08/2022 How Much Tobacco Do You Chew? None MIGRATION.[id number] 9475 Information not available 04/08/2022 In The 14 Days Before Symptom Onset, Have You Had Close Contact With A Laboratory-confir med COVID-19 While That Case Was Ill? No MIGRATION.[id number] Information not available 04/08/2022 In The 14 Days Before Symptom Onset, Have You Had Close Contact With A Person Who Is Under Investigation For COVID-19 While That Person Was Ill? No MIGRATION.[id number] 8187 Information not available 04/08/2022 Are You Currently Employed? Yes [email or web address] Information not available 09/10/2022 Are You Deaf Or Do You Have Serious Difficulty Hearing? No MIGRATION.[id number] 1952 Information not available 04/08/2022 What Type Of Diet Are You Following? REGULAR MIGRATION.021259 7209 Information not available 04/08/2022 Which Illicit Or Recreational Drugs Have You Used? None MIGRATION.804045 9355 Information not available 04/08/2022 Do You Or Have You Ever Used E-cigarettes Or Vape? 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 No MIGRATION.923458 3363 Information not available 04/08/2022 Do You Use Insect Repellent Routinely? No MIGRATION.487387 8875 Information not available 04/08/2022 What Is Your Relationship Status? MIGRATION.271164 2045 Information not available 04/08/2022 Do You Use Your Seat Belt Or Car Seat Routinely? Yes MIGRATION.864856 1282 Information not available 04/08/2022 Are You Sexually Active? No [email or web address] Information not available 09/10/2022 Do You Have Smoke And Carbon Monoxide Detectors In Your Home? Yes MIGRATION.398052 2677 Information not available 04/08/2022 At What Age Did You Start Smoking Tobacco? 15 MIGRATION.010929 4097 Information not available 04/08/2022 Do You Or Have You Ever Used Smokeless Tobacco? Never Used Smokeless Tobacco MIGRATION.359243 0774 Information not available 04/08/2022 How Much Tobacco Do You Smoke? 1 PPD MIGRATION.010689 4898 Information not available 04/08/2022 Do You Use Any Illicit Or Recreational Drugs? No MIGRATION.278334 1378 Information not available 04/08/2022 Do You Use Sunscreen Routinely? Yes MIGRATION.116220 6873 Information not available 04/08/2022 Have You Recently Traveled Abroad? No MIGRATION.574769 6610 Information not available 04/08/2022 Do You Have Any Dietary Restrictions? No MIGRATION.680534 5528 Information not available 04/08/2022 Do You Or Have You Ever Used Any Other Forms Of Tobacco Or Nicotine? No MIGRATION.910617 7150 Information not available 04/08/2022 Sex: Unknown Functional Status Question Answer Note LastModified by Organizat ion Details LastModified Time Do you have transportation difficulties? No MIGRATION.5079276 026 Information not available 04/08/2022 Do you have difficulty doing errands alone? No MIGRATION.6011145 026 Information not available 04/08/2022 Are you able to care for yourself? Yes MIGRATION.0919046 026 Information not available 04/08/2022 What is your exercise level? Moderate MIGRATION.2229020 026 Information not available 04/08/2022 Mental Status None recorded. Family History Relationship Description Onset Age of this Age Resolved Age Notes LastModified by Organization Details LastModified Time Father Malignant neoplastic disease [id number] Not available 04/08/2022 19:45:52 Medical History Condition Response SKIN PROBLEMS Y CANCER: SPECIFY Y ANXIETY DISORDER Y BACK / NECK PROBLEMS Y Gynecological History Statement/Question Response Abnormal Pap N Date of Last Pap 02/08/2015 Date of Last Mammogram 02/08/2007 Date of Last Colonoscopy 02/08/2015 Sexually Active? N Obstetrics History GPAL:G 9 P 0 0 0 5 Type Value Living 5 Total 9 Immunizations Vaccine Type Date Status Note Provider Nam e and Address Organization Details Recorded Time influenza, unspecified formulation 8 completed Not Available [facility] 04/08/2022 19:48:03 pneumococcal, unspecified formulation 7 completed Not Available [facility] 04/08/2022 19:48:03 zoster, unspecified formulation 6 completed Not Available [facility] 04/08/2022 19:48:03 tetanus toxoid, unspecified formulation 4 completed Not Available [facility] 04/08/2022 19:48:03 Past Encounters Encounter ID Performer Location Encounter Start Date Encounter Closed Date Diagnosis/Indication Diagnosis SNOMED-CT Code Diagnosis ICD10 Code Diagnosis Note [id number] TYREE Nicolas [facility] [address] [place] [address] 08/08/2020 00:00:00 08/24/2020 20:57:48 [id number] TYREE Nicolas [facility] [address] [place] [address] 02/17/2021 00:00:00 03/10/2021 15:00:10 [id number] TYREE Nicolas [facility] [address] [place] [address] 03/12/2021 00:00:00 04/07/2021 21:52:29 [id number] Pablo Mercado MD [facility] [address] [place] [address] 08/18/2021 00:00:00 09/07/2021 19:23:02 [id number] TYREE Nicolas [facility] [address] [place] [address] 10/17/2021 00:00:00 11/06/2021 22:06:59 [id number] TYREE Nicolas [facility] [address] [place] [address] 03/10/2022 00:00:00 03/10/2022 16:25:41 [id number] TYREE Nicolas [facility] [address] [place] [address] 09/11/2022 09:14:11 09/11/2022 10:01:17 Generalized anxiety disorder 40369253 F41.1 stable on PRN lorazepam 0.5mg Hyperlipidemia 18542609 E78.5 dietary managed. due for fasting lipids. Irritable bowel syndrome with diarrhea 529941050 K58.0 refill on lomotil prn use. Diverticul ar disease of colon [id number] K57.30 stable. no acute flare ups Long-term drug therapy [id number] Z79.899 all annual labs ordered. Health Concerns Section Related Observation LastModified by Organization Detai ls LastModified Time None Recorded Concern Status LastModified by Organization Details LastModified Time None Recorded Advance Directives Directive None Recorded Payers Encounter Date Sequence Insurance Name Policy Number Policy Kurtz Covered Member ID Kurtz Member ID Guarantor Name 09/11/2022 1 [facility] (MEDICARE REPLACEMENT/ ADVANTAGE - PPO) [id number] Lynn Doe [id number] Lynn Doe Notes Date Note Type Note Provider Name and Address Organization Details Recorded Time 03/12/2021 text/html Anxiety/Depressi onRep orted bypatient.Quality:inc reased anxiety Severity:denies suicidal ideations; able to maintain relationships; does not interfere with activities of daily living Duration:symptoms lasting over 2 weeks Onset/Timing:still present Context:major life stressors(due to not working w/school on remote that causes financial issues) Modifying Factors:medications as directed; she has been taking 1 tab of lorazepam in the morning and 1 tab in the afternoon and 2 right before bed. Associated Symptoms:denies homicidal ideations; no significant weight gain; no significant weight loss; no visual/auditory hallucinations; no delusions; no shortness of breath; no crying spells; no panic; no isolation; appetite good; energy good; no apathy; maintaining functionality;anxiety ;insomnia;sleep disturbancesNotes:She has been taking 1 tab of lorazepam in the morning and 1 tab in the afternoon and 2 right before bed. She is wanting to discuss increasing her med since what she has been doing is working.Generic HPI TemplateReported bypatient.Notes:She seen some CT scans [facility] from April of last year. she wants us to have copies. Not Available [facility] SergeMD 04/07/2021 21:52:29 08/18/2021 text/html Back Pain - GeneralReported bypatient.Location:pa in is not radiating; upper back Quality:sharp; deep Severity:improving (slightly);pain level 8/10;severe (8-10);interference with sleep;interference with work Duration:constant; still present Timing:better (just slightly); gradual; actual date: (3 days ago) Context:She thinks she is having a diverticulitis flare. Says this is how it starts Alleviating Factors:heat; eating differently Aggravating Factors:everything Associated Symptoms:no fever; no weak limbs; no tingling; no numbness of the legs/feet; no incontinence; no shortness of breath; diarrhea Not Available [facility] 09/07/2021 19:23:02 10/17/2021 text/html Back Pain - GeneralReported bypatient.Location:pa in is not radiating; mid back Quality:sharp; deep Severity:feeling the same;pain level 8/10;severe (8-10);interference with sleep;interference with work Duration:constant; still present Timing:gradual; actual date: (3 days) Context:She says its the same pain in August Alleviating Factors:heat; eating smaller meals Aggravating Factors:movement/posi tioning Associated Symptoms:no weak limbs; no tingling; no numbness of the legs/feet; no incontinence; no shortness of breath;fever(low grade if any); diarrheaNotes:She states its the same pain she had in August. Not Available [facility] 11/06/2021 22:06:59 03/10/2022 text/html DiarrheaReported bypatient.Quality:wor sening; frequent Severity:moderate Onset/Timin-3 times a day Context:no one else with similar symptoms; no recent camping; no recent picnic; no possible food sources; no recent travel Alleviating Factors:prescription medications Aggravating Factors:eating;stress ;fatty foods Associated Symptoms:no abdominal pain; no fever; no rash; no weight loss; no vomiting; no heartburn; no blood in stool; no mucus in stool; no nutrient deficiency;excess gas Not Available [facility] 03/10/2022 16:25:41 09/11/2022 text/html Anxiety/Depressi onRep orted bypatient.Quality:patel snt matteer time of day. Severity:denies suicidal ideations; able to maintain relationships;interfe rence with household activities;interferen ce with sleep Duration:symptoms lasting over 2 weeks Onset/Timing:still present Context:no major life stressors; OCD Associated Symptoms:denies homicidal ideations; no significant weight gain; no significant weight loss; no visual/auditory hallucinations; no delusions; no shortness of breath TYREE Nicolas [address] [facility], [facility] [address], [place], [address], [place] [facility] 10/09/2022 00:03:39 OBGyn Episode No OBEpisode recorded.
--- OUTSIDE RECORDS SUMMARY | 2024-06-09 03:36 | XMS_ITS | Data Portability ---
Author Organization [facility] Enoc BALL Address [address] [place] [address] Care Team Providers Care Bridge Expert Name Role Phone NENA PEÑA Primary Care Provider EARNESTINE LANDRY Primary Care Provider Unavailab le Assessment Encounter Date Assessment Date Assessment LastModified by Organization Details LastModified Time 09/20/2023 09/20/2023 Mammogram UTD. Got her old breast implants out . Colonoscopy: Right before covid 2019. Completed at [facility]. She is still in window of 10 years. 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 Dental: scheduled, she needs new dentures. Not available 10/07/2023 23:56:18 03/13/2024 03/13/2024 Mammogram UTD. Got her old breast implants out in recent years. Colonoscopy: Right before covid 2020. Completed at [facility]. She is still in window of 10 years. 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 Dental: scheduled, she needs new dentures. Not available 04/02/2024 13:47:56 Plan of Treatment Reminders Order Date Submit Date Provider Last Modified By Organization Details Last Modified Time Details Appointments ANY 15 2024 09:00A M TYREE Nicolas Not available Not available Not available Lab lipid panel, serum 2024 025 [email or web address] [facility], [address] [facility] [address], [place], [address], 03/13/2024 16:47:15 CBC w/ auto diff 2024 025 [email or web address] [facility], [address], [place], [address], 03/13/2024 16:47:15 hepatic function panel, serum 2024 025 [email or web address] [facility], [address], [place], [address], 03/13/2024 16:47:15 BMP, serum or plasma 2024 025 [email or web address] [facility], [address], [place], [address], 03/13/2024 16:47:15 TSH + free T4, serum 2024 025 [email or web address] [facility], [address], [place], [address], 03/13/2024 16:47:15 HbA1c (hemoglob in A1c), blood 2024 025 [email or web address] [facility], [address], [place], [address], 03/13/2024 16:47:15 lipid panel, serum 2023 024 SERINA [facility], [address], [place], [address], 10/13/2023 10:13:20 CBC w/ auto diff 2023 024 SERINA [facility], [address], [place], [address], 10/13/2023 10:13:22 hepatic function panel, serum 2023 024 SERINA [facility], [address], [place], [address], 10/13/2023 10:13:21 BMP, serum or plasma 2023 024 SERINA [facility], [address] [facility], [place], [address], 10/13/2023 10:13:21 TSH + free T4, serum 2023 024 SERINA [facility], [address], [place], [address], 10/13/2023 10:13:19 HbA1c (hemoglob in A1c), blood 2023 024 SERINA [facility], [address] [facility], [place], [address], 10/13/2023 10:13:22 TSH, ultra-sen sitive, serum 2016 017 SERINA [facility], [address], [address], [place], [address], 02/04/2017 12:54:57 CBC 2016 017 SERINA [facility], [email or web address], [place], [address], 02/04/2017 12:55:01 CMP, serum or plasma 2016 017 SERINA [facility], [email or web address], [place], [address], 02/04/2017 12:55:00 lipid panel, serum 2016 017 SERINA [facility], [email or web address], [place], [address], 02/04/2017 12:54:58 CBC 2016 017 SERINA [facility], [email or web address], [place], [address], 07/30/2016 12:22:11 lipid panel, serum 2016 017 BAJADERO [facility], [address], [place], [address], 07/30/2016 12:22:11 CMP, serum or plasma 2016 017 BAJADERO [facility], [address], [address], [place], [address], 07/30/2016 12:22:11 Referral dermatolo gist referral - needs new Derm, her's left. hx of BCC and hx of MOH's. 2023 024 [facility], [place], [facility], [facility] [place], [address], 11/15/2023 17:04:08 cardiolog ist referral - Please call pt to schedule appointme nt, Thank you 2016 017 [email or web address] [facility], [address], [place], [address], 10/19/2016 10:30:51 Procedures None recorded. Surgeries None recorded. Imaging XR, chest, 2 view 2023 024 [facility] (Im[facility]), [address], [place], [address], 11/03/2023 11:58:31 XR, ribs, unilatera l, 3 or more view 2023 024 [facility], [address], [place], [address], 11/15/2023 17:04:22 MAMMO, screening , digital, bilateral [address] - [facility] Ctr, [address], [place], [address], 05/19/2017 15:38:25 MAMMO, screening , digital, bilateral 2016 017 [email or web address] [facility], [address], [address], [address], 03/05/2017 14:33:55 Medication Orders acetamino phen 300 mg-codein e 30 mg tablet 2023 024 [email or web address] [facility], [address] , [place], [place], [id number], 11/26/2023 13:35:17 Patient TargetsNo targets recorded. 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 hx of BCC and hx of MOH's. Referring Physician: Earnestine Landry, Internal Medicine, Encounter Date: 09/20/2023 Results Created Date Observation Date Name Description Value Unit Range Abnormal Flag Note LastModifiedBy Organization Detail LastModifiedTime 02/26/19 22 02/27/2021 CBC W Auto Diffe renti al panel - Blood leukocytes [#/volume] in blood by automated count WBC Not Available Not Available 06/2024 15:28:02/26/19 22 02/27/2021 CBC W Auto Diffe renti al panel - Blood erythrocytes [#/volume] in blood by automated count RBC Not Available Not Available 06/2024 15:28:01 02/26/19 22 02/27/2021 CBC W Auto Diffe renti al panel - Blood hemoglobin [mass/volume ] in blood hemog lobin Not Available Not Available 04/12/2024 15:28:02/26/19 22 02/27/2021 CBC W Auto Diffe renti al panel - Blood hematocrit [volume fraction] of blood by automated count hemat ocrit Not Available Not Available 04/12/2024 15:28:02/26/19 22 02/27/2021 CBC W Auto Diffe renti al panel - Blood MCV [entitic volume] by automated count MCV Not Available Not Available 06/2024 15:28:02/26/19 22 02/27/2021 CBC W Auto Diffe renti al panel - Blood MCH [entitic mass] by automated count high MCH Not Available Not Available 06/2024 15:28:02/26/19 22 02/27/2021 CBC W Auto Diffe renti al panel - Blood MCHC [mass/volume ] by automated count MCHC Not Available Not Available 06/2024 15:28:02/26/19 22 02/27/2021 CBC W Auto Diffe renti al panel - Blood erythrocyte distribution width [ratio] by automated count RDW Not Available Not Available 06/2024 15:28:01 02/26/19 22 02/27/2021 CBC W Auto Diffe renti al panel - Blood platelets [#/volume] in blood by automated count plate lets Not Available Not Available 04/12/2024 15:28:01 02/26/19 22 02/27/2021 CBC W Auto Diffe renti al panel - Blood neutrophils/ 100 leukocytes in blood by automated count neutr ophil s Not Available Not Available 04/12/2024 15:28:02/26/19 22 02/27/2021 CBC W Auto Diffe renti al panel - Blood lymphocytes/ 100 leukocytes in blood by automated count lymph s Not Available Not Available 04/12/2024 15:28:02/26/19 22 02/27/2021 CBC W Auto Diffe renti al panel - Blood monocytes/10 0 leukocytes in blood by automated count monoc ytes Not Available Not Available 04/12/2024 15:28:01 02/26/19 22 02/27/2021 CBC W Auto Diffe renti al panel - Blood eosinophils/ 100 leukocytes in blood by automated count eos Not Available Not Available 06/2024 15:28:01 02/26/19 22 02/27/2021 CBC W Auto Diffe renti al panel - Blood basophils/10 0 leukocytes in blood by automated count basos Not Available Not Available 06/2024 15:28:01 02/26/19 22 02/27/2021 CBC W Auto Diffe renti al panel - Blood immature cells [employer] immat ure cells Not Available Not Available 04/12/2024 15:28:01 02/26/19 22 02/27/2021 CBC W Auto Diffe renti al panel - Blood neutrophils [#/volume] in blood by automated count neutr ophil s (abso lute) Not Available Not Available 04/12/2024 15:28:01 02/26/19 22 02/27/2021 CBC W Auto Diffe renti al panel - Blood lymphocytes [#/volume] in blood by automated count lymph s (abso lute) Not Available Not Available 04/12/2024 15:28:01 02/26/19 22 02/27/2021 CBC W Auto Diffe renti al panel - Blood monocytes [#/volume] in blood by automated count monoc ytes( absol red cliff) Not Available Not Available 04/12/2024 15:28:01 02/26/19 22 02/27/2021 CBC W Auto Diffe renti al panel - Blood eosinophils [#/volume] in blood by automated count eos (abso lute) Not Available Not Available 04/12/2024 15:28:01 02/26/19 22 02/27/2021 CBC W Auto Diffe renti al panel - Blood basophils [#/volume] in blood by automated count baso (abso lute) Not Available Not Available 04/12/2024 15:28:01 02/26/19 22 02/27/2021 CBC W Auto Diffe renti al panel - Blood immature granulocytes /100 leukocytes in blood by automated count immat ure granu locyt es Not Available Not Available 04/12/2024 15:28:01 02/26/19 22 02/27/2021 CBC W Auto Diffe renti al panel - Blood immature granulocytes [#/volume] in blood by automated count immat ure grans (abs) Not Available Not Available 04/12/2024 15:28:02/26/19 22 02/27/2021 CBC W Auto Diffe renti al panel - Blood nucleated erythrocytes /100 leukocytes [ratio] in blood by automated count [employer] NRBC Not Available Not Available 06/2024 15:28:02/26/19 22 02/27/2021 CBC W Auto Diffe renti al panel - Blood morphology [interpretat ion] in blood narrative [employer] hemat ology comme nts: Not Available Not Available 04/12/2024 15:28:02/26/19 22 02/27/2021 Basic metab olic 1999 panel - Serum or Plasm a glucose [mass/volume ] in serum or plasma gluco se Not Available Not Available 04/12/2024 15:28:02/26/19 22 02/27/2021 Basic metab olic 1999 panel - Serum or Plasm a urea nitrogen [mass/volume ] in serum or plasma BUN Not Available Not Available 15:28:02/26/19 22 02/27/2021 Basic metab olic 1999 panel - Serum or Plasm a creatinine [mass/volume ] in serum or plasma creat inine Not Available Not Available 04/12/2024 15:28:02/26/19 22 02/27/2021 Basic metab olic 1999 panel - Serum or Plasm a glomerular filtration rate/1.73 sq M.predicted among non-blacks [volume rate/area] in serum, plasma or blood by creatinine-b ased formula (CKD-epi) eGFR if nonaf ricn AM Not Available Not Available 04/12/2024 15:28:02/26/19 22 02/27/2021 Basic metab olic 1999 panel - Serum or Plasm a glomerular filtration rate/1.73 sq M.predicted among blacks [volume rate/area] in serum, plasma or blood by creatinine-b ased formula (CKD-epi) eGFR if afric n AM Not Available Not Available 04/12/2024 15:28:02/26/19 22 02/27/2021 Basic metab olic 1999 panel - Serum or Plasm a urea nitrogen/cre atinine [mass ratio] in serum or plasma 19 BUN/c reati nine ratio Not Available Not Available 04/12/2024 15:28:01 02/26/19 22 02/27/2021 Basic metab olic 1999 panel - Serum or Plasm a sodium [moles/volum e] in serum or plasma sodiu m Not Available Not Available 04/12/2024 15:28:01 02/26/19 22 02/27/2021 Basic metab olic 1999 panel - Serum or Plasm a potassium [moles/volum e] in serum or plasma potas sium Not Available Not Available 04/12/2024 15:28:01 02/26/19 22 02/27/2021 Basic metab olic 1999 panel - Serum or Plasm a chloride [moles/volum e] in serum or plasma chlor abram Not Available Not Available 04/12/2024 15:28:01 02/26/19 22 02/27/2021 Basic metab olic 1999 panel - Serum or Plasm a carbon dioxide, total [moles/volum e] in serum or plasma carbo n dioxi de, total Not Available Not Available 04/12/2024 15:28:01 02/26/19 22 02/27/2021 Basic metab olic 1999 panel - Serum or Plasm a calcium [mass/volume ] in serum or plasma calci um Not Available Not Available 04/12/2024 15:28:01 02/26/19 22 02/27/2021 Hepat ic funct ion 1999 panel - Serum or Plasm a protein [mass/volume ] in serum or plasma prote in, total Not Available Not Available 04/12/2024 15:28:00 02/26/19 22 02/27/2021 Hepat ic funct ion 1999 panel - Serum or Plasm a albumin [mass/volume ] in serum or plasma album in Not Available Not Available 04/12/2024 15:28:00 02/26/19 22 02/27/2021 Hepat ic funct ion 1999 panel - Serum or Plasm a bilirubin.to dario [mass/volume ] in serum or plasma bilir ubin, total Not Available Not Available 04/12/2024 15:28:00 02/26/19 22 02/27/2021 Hepat ic funct ion 1999 panel - Serum or Plasm a bilirubin.di rect [mass/volume ] in serum or plasma bilir ubin, direc t Not Available Not Available 04/12/2024 15:28:00 02/26/19 22 02/27/2021 Hepat ic funct ion 1999 panel - Serum or Plasm a alkaline phosphatase [enzymatic activity/vol ume] in serum or plasma alkal ine phosp hatas e Not Available Not Available 04/12/2024 15:28:00 02/26/19 22 02/27/2021 Hepat ic funct ion 1999 panel - Serum or Plasm a aspartate aminotransfe rase [enzymatic activity/vol ume] in serum or plasma AST (SGOT ) Not Available Not Available 04/12/2024 15:28:00 02/26/19 22 02/27/2021 Hepat ic funct ion 1999 panel - Serum or Plasm a alanine aminotransfe rase [enzymatic activity/vol ume] in serum or plasma ALT (SGPT ) Not Available Not Available 04/12/2024 15:28:00 02/26/19 22 02/27/2021 Amyla se and triac ylgly cerol lipas e panel - Serum or Plasm a amylase [enzymatic activity/vol ume] in serum or plasma amyla se Not Available Not Available 04/12/2024 15:28:00 02/26/19 22 02/27/2021 Amyla se and triac ylgly cerol lipas e panel - Serum or Plasm a lipase [enzymatic activity/vol ume] in serum or plasma lipas e Not Available Not Available 04/12/2024 15:28:00 02/26/19 22 02/27/2021 Bacte ana ident ified in Urine by Cultu re bacteria identified in urine by culture final report urine cultu re, routi ne Not Available Not Available 04/12/2024 15:28:00 02/26/19 22 02/27/2021 Bacte ana ident ified in Urine by Cultu re bacteria identified in urine by culture commen t resul t 1 Not Available Not Available 04/12/2024 15:28:00 10/12/19 24 10/13/2023 TSH+F REE T4 TSH 1.610 uIU/m L 0.450- 4.500 Not Available [facility] ([facility]) [address], [place], [address], 10/13/2023 10:13:19 10/12/19 24 10/13/2023 TSH+F REE T4 T4,free(dire ct) 1.34 NG/dL 0.82-1 .77 Not Available [facility] ([facility]) [address] [place], [address], 10/13/2023 10:13:19 10/12/19 24 10/13/2023 LIPID PANEL cholesterol, total 208 mg/dL 100-19 9 above high normal Not Available [facility] ([facility]) [address] [place], [address], 10/13/2023 10:13:20 10/12/19 24 10/13/2023 LIPID PANEL triglyceride s 107 mg/dL 0-149 Not Available [facility] ([facility]) [address] [place], [address], 10/13/2023 10:13:20 10/12/19 24 10/13/2023 LIPID PANEL HDL cholesterol 70 mg/dL >39 Not Available [facility] ([facility]) [address] [place], [address], 10/13/2023 10:13:20 10/12/19 24 10/13/2023 LIPID PANEL VLDL cholesterol jessica 19 mg/dL 5-40 Not Available [facility] ([facility]) [address] [place], [address], 10/13/2023 10:13:20 10/12/19 24 10/13/2023 LIPID PANEL LDL chol calc ([facility]) 119 mg/dL 0-99 above high normal Not Available [facility] ([facility]) [address] [place], [address], 10/13/2023 10:13:20 10/12/19 24 10/13/2023 HEPAT IC FUNCT ION PANEL (7) protein, total 6.9 g/dL 6.0-8. 5 Not Available [facility] ([facility]) [address] [place], [address], 10/13/2023 10:13:21 10/12/19 24 10/13/2023 HEPAT IC FUNCT ION PANEL (7) albumin 4.6 g/dL 3.8-4. 8 Not Available [facility] ([facility]) [address], [place], [address], 10/13/2023 10:13:21 10/12/19 24 10/13/2023 HEPAT IC FUNCT ION PANEL (7) bilirubin, total 0.4 mg/dL 0.0-1. 2 Not Available [facility] ([facility]) [address] [facility], [place], [address], 10/13/2023 10:13:21 10/12/19 24 10/13/2023 HEPAT IC FUNCT ION PANEL (7) bilirubin, direct 0.13 mg/dL 0.00-0 .40 Not Available [facility] ([facility]) [address], [place], [address], 10/13/2023 10:13:21 10/12/19 24 10/13/2023 HEPAT IC FUNCT ION PANEL (7) alkaline phosphatase 100 IU/L 44-121 Not Available [facility] ([facility]) [address], [place], [address], 10/13/2023 10:13:21 10/12/19 24 10/13/2023 HEPAT IC FUNCT ION PANEL (7) AST (SGOT) 23 IU/L 0-40 Not Available [facility] ([facility]) [address] [facility] [place], [address], 10/13/2023 10:13:21 10/12/19 24 10/13/2023 HEPAT IC FUNCT ION PANEL (7) ALT (SGPT) 18 IU/L 0-32 Not Available [facility] ([facility]) [address] [address] [facility], [place], [address], 10/13/2023 10:13:21 10/12/19 24 10/13/2023 BMP7+ EGFR glucose 92 mg/dL 70-99 Not Available [facility] ([facility]) [address] [facility] [place], [address], 10/13/2023 10:13:21 10/12/19 24 10/13/2023 BMP7+ EGFR BUN 13 mg/dL 8-27 Not Available [facility] ([facility]) [address] [facility] [place], [address], 10/13/2023 10:13:21 10/12/19 24 10/13/2023 BMP7+ EGFR creatinine 0.57 mg/dL 0.57-1 .00 Not Available [facility] ([facility]) [address], [place], [address], 10/13/2023 10:13:21 10/12/1910/13/2023 BMP7+ EGFR eGFR 97 mL/mi n/1.7 3 >59 Not Available [facility] ([facility]) [address] [facility] [place], [address], 10/13/2023 10:13:21 10/12/19 24 10/13/2023 BMP7+ EGFR sodium 141 mmol/ L 134-14 4 Not Available [facility] ([facility]) [address] [facility] [place], [address], 10/13/2023 10:13:21 10/12/19 24 10/13/2023 BMP7+ EGFR potassium 4.3 mmol/ L 3.5-5. 2 Not Available [facility] ([facility]) [address] [facility] [place], [address], 10/13/2023 10:13:21 10/12/19 24 10/13/2023 BMP7+ EGFR chloride 104 mmol/ L 96-106 Not Available [facility] ([facility]) [address] [place], [address], 10/13/2023 10:13:21 10/12/19 24 10/13/2023 BMP7+ EGFR carbon dioxide, total 21 mmol/ L 20-29 Not Available [facility] ([facility]) [address], [place], [address], 10/13/2023 10:13:21 10/12/19 24 10/13/2023 HEMOG LOBIN A1C hemoglobin A1C 5.8 % 4.8-5. 6 above high normal Predi abete s: 5.7 - 6.4 Diabe francesco: >6.4 Glyce frank contr ol for adult s with diabe francesco: <7.0 Not Available [facility] ([facility]) [address], [place], [address], 10/13/2023 10:13:22 10/12/19 24 10/13/2023 CBC WITH DIFFE RENTI AL/PL ATELE T WBC 5.4 x10e3 /uL 3.4-10 .8 Not Available [facility] ([facility]) [address], [place], [address], 10/13/2023 10:13:22 10/12/19 24 10/13/2023 CBC WITH DIFFE RENTI AL/PL ATELE T RBC 3.44 x10e6 /uL 3.77-5 .28 below low normal Not Available [facility] ([facility]) [address], [place], [address], 10/13/2023 10:13:22 10/12/19 24 10/13/2023 CBC WITH DIFFE RENTI AL/PL ATELE T hemoglobin 11.5 g/dL 11.1-1 5.9 Not Available [facility] ([facility]) [address] [place], [address], 10/13/2023 10:13:22 10/12/19 24 10/13/2023 CBC WITH DIFFE RENTI AL/PL ATELE T hematocrit 34.0 % 34.0-4 6.6 Not Available [facility] ([facility]) [address], [place], [address], 10/13/2023 10:13:22 10/12/19 24 10/13/2023 CBC WITH DIFFE RENTI AL/PL ATELE T MCV 99 fL 79-97 above high normal Not Available [facility] ([facility]) [address], [place], [address], 10/13/2023 10:13:22 10/12/19 24 10/13/2023 CBC WITH DIFFE RENTI AL/PL ATELE T MCH 33.4 pg 26.6-3 3.0 above high normal Not Available [facility] ([facility]) [address], [place], [address], 10/13/2023 10:13:22 10/12/19 24 10/13/2023 CBC WITH DIFFE RENTI AL/PL ATELE T MCHC 33.8 g/dL 31.5-3 5.7 Not Available [facility] ([facility]) [address], [place], [address], 10/13/2023 10:13:22 10/12/19 24 10/13/2023 CBC WITH DIFFE RENTI AL/PL ATELE T RDW 12.9 % 11.7-1 5.4 Not Available [facility] ([facility]) [address], [place], [address], 10/13/2023 10:13:22 10/12/19 24 10/13/2023 CBC WITH DIFFE RENTI AL/PL ATELE T platelets 248 x10e3 /uL 150-45 0 Not Available [facility] ([facility]) [address], [place], [address], 10/13/2023 10:13:22 10/12/19 24 10/13/2023 CBC WITH DIFFE RENTI AL/PL ATELE T neutrophils 51 % notest ab. Not Available [facility] ([facility]) [address], [place], [address], 10/13/2023 10:13:22 10/12/19 24 10/13/2023 CBC WITH DIFFE RENTI AL/PL ATELE T lymphs 36 % notest ab. Not Available [facility] ([facility]) [address], [place], [address], 10/13/2023 10:13:22 10/12/19 24 10/13/2023 CBC WITH DIFFE RENTI AL/PL ATELE T monocytes 10 % notest ab. Not Available [facility] ([facility]) [address], [place], [address], 10/13/2023 10:13:22 10/12/19 24 10/13/2023 CBC WITH DIFFE RENTI AL/PL ATELE T eos 2 % notest ab. Not Available [facility] ([facility]) [address], [place], [address], 10/13/2023 10:13:22 10/12/19 24 10/13/2023 CBC WITH DIFFE RENTI AL/PL ATELE T basos 1 % notest ab. Not Available [facility] ([facility]) [address] [facility], [place], [address], 10/13/2023 10:13:22 10/12/19 24 10/13/2023 CBC WITH DIFFE RENTI AL/PL ATELE T neutrophils (absolute) 2.8 x10e3 /uL 1.4-7. 0 Not Available [facility] ([facility]) [address], [place], [address], 10/13/2023 10:13:22 10/12/19 24 10/13/2023 CBC WITH DIFFE RENTI AL/PL ATELE T lymphs (absolute) 1.9 x10e3 /uL 0.7-3. 1 Not Available [facility] ([facility]) [address], [place], [address], 10/13/2023 10:13:22 10/12/19 24 10/13/2023 CBC WITH DIFFE RENTI AL/PL ATELE T monocytes(ab solute) 0.5 x10e3 /uL 0.1-0. 9 Not Available [facility] ([facility]) [address], [place], [address], 10/13/2023 10:13:22 10/12/19 24 10/13/2023 CBC WITH DIFFE RENTI AL/PL ATELE T eos (absolute) 0.1 x10e3 /uL 0.0-0. 4 Not Available [facility] ([facility]) [address] [facility], [place], [address], 10/13/2023 10:13:22 10/12/19 24 10/13/2023 CBC WITH DIFFE RENTI AL/PL ATELE T baso (absolute) 0.0 x10e3 /uL 0.0-0. 2 Not Available [facility] ([facility]) [address] [facility], [place], [address], 10/13/2023 10:13:22 10/12/19 24 10/13/2023 CBC WITH DIFFE RENTI AL/PL ATELE T immature granulocytes 0 % notest ab. Not Available [facility] ([facility]) [address] [facility], [place], [address], 10/13/2023 10:13:22 10/12/19 24 10/13/2023 CBC WITH DIFFE RENTI AL/PL ATELE T immature grans (abs) 0.0 x10e3 /uL 0.0-0. 1 Not Available [facility] ([facility]) [address] [facility], [place], [address], 10/13/2023 10:13:22 11/03/19 24 11/02/2023 XR, chest , 2 view No observ ation record ed. [facility] [address], [place], [address], 11/03/2023 12:44:42 Result Notes None recorded. Problems Name Problem SNOMED Code Status Onset Date Resolution Date Notes Provider Name and Address Organization Details Recorded Time Body mass index 20-24 - normal 140096662 Active 2023 Julianna arriaga, [place] - [facility] 4 14:11:38 Irritabl e bowel syndrome with diarrhea 049868703 Active 2023 TYREE Nicolas Attn: Accountin g,[address] [facility], [place], [address], [place] - [facility] 4 14:47:44 Benign essentia l hyperten trinidad 7081530 Active 2023 TYREE Nicolas Attn: Accountin g,[address] [facility], [place], [address], [facility] - [facility] 4 14:47:48 Degenera tive disorder of macula 097733383 Active 2023 TYREE Nicolas Attn: Accountin g,[address] [facility], [place], [address], [place] - [facility] 4 14:48:00 Long-ter m drug therapy Active 2023 TYREE Nicolas Attn: Accountin g,[address] [facility], [place], [address], [place] [facility] 4 14:50:06 Generali zed anxiety disorder 92162469 Active 2023 TYREE Nicolas Attn: Accountin g,[address] 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 5 16:47:36 Brugada syndrome 151320035 Active 2015 s/p defibrila tor -sees cardio Nena Peña MD Attn: Radha cullen,[address] [facility], [place], [address], [facility] 7 14:42:31 Alcohol dependen ce 82147092 Active 2015 Nena Peña MD Attn: Radha cullen,[address] [facility], [place], [address], [facility] 6 14:33:14 Essentia l hyperten trinidad 21102157 Active 2015 Nena Peña MD Attn: Radha cullen,[address] [facility], [place], [address], [facility] 6 14:33:31 Malignan t neoplasm of skin 330456177 Completed 201602/19/2016 Nena Peña MD Attn: Radha cullen,[address] [facility], [place], [address], [facility] 7 14:52:08 History of malignan t neoplasm of skin 446475584 Active 2016 Nena Peña MD Attn: Radha cullen,[address] [facility], [place], [address], [facility] 7 14:52:03 Notes:s/p defibrilator Problem Notes None recorded. Procedures Surgical History Date Name Laterality Status Provider Name and Address Organization Details Recorded Time 02/08/19 15 Colonoscopy with biopsy completed [facility] 12/19/2015 14:00:37 Appendectomy completed [facility] 14:03:43 Defibrillator completed [facility] 1 02/17/2015 14:03:50 Dilation and Curettage completed Yamilex Champagne [place] - [facility] 12/19/2015 14:05:03 Imaging Results Imaging Date Name Status LastModified by Organiz ation Details LastModified Time 11/02/2023 XR, chest, 2 view completed [facility] [address], [place], [address], 11/03/2023 12:44:42 Procedure Notes None recorded. Medical Equipment None Reported. Allergies Allergen ID Allergen Name Allergen Category Reaction Reaction Severity Criticality Documentation Date Start Date Code Code System Note Provider Name and Address Organization Details Recorded Time 345589 Phenergan medicatio n other severe high 11/26/2023 30673 8 RxNorm AGUSTO Solorzano, [facility] 09:52:18 Medications Name Sig Start Date Stop Date Status Note LastModified by Organization Details LastModified Time doxycycline hyclate 100 mg capsule 12/18 completed Not Available Not Available Not Available metoprolol succinate ER 50 mg tablet,exten ded release 24 hr TAKE TWO TABLETS BY MOUTH ONCE DAILY 08/28 completed Not Available Not Available Not Available metoprolol succinate ER 100 mg tablet,exten ded release 24 hr Take 2 tabs po daily active Not Available Not Available No t Available diphenoxylat e-atropine 2.5 mg-0.025 mg tablet Take 1 Tablet by mouth 3 times daily as needed. 2024 active Not Available Not Available Not Avai lable acetaminophe n 300 mg-codeine 30 mg tablet Take 1 tablet every 8 hours by oral route as needed, for rib pain. DO NOT dose with lorazepa m. 11/25 completed Not Available Not Available Not Available ciprofloxaci n 500 mg tablet 12/18 completed Not Available Not Available Not Available lorazepam 0.5 mg tablet Take 1 Tablet (0.5 mg) by mouth 3 times daily as needed. 2024 active Not Available Not Available Not Avai lable chlordiazepo xide 25 mg capsule 12/18 completed Not Available Not Available Not Available cephalexin 500 mg capsule 08/28 completed Not Available Not Available Not Available ondansetron 4 mg disintegrati ng tablet 12/18 completed Not Available Not Available Not Available nitrofuranto in monohydrate/ macrocrystal s 100 mg capsule 08/28 completed Not Available Not Available Not Available Afluria Quad [id number] (PF) 60 mcg/0.5 mL intramuscula r syringe 09/14 completed Not Available Not Available Not Available Vitals Date Recorded Body height Body mass index (BMI) Body weight Heart rate Respiratory rate Body temperature Oxygen saturation Oxygen saturation in Arterial blood by Pulse oximetry Provider Name and Address Organization Details Last Updated DateTime 7 160.02 cm 23.1 kg/m2 69040.7 3 g 82 /min 12 /min 97.5 [degF] 98 % 98 % Ruma varghese MA [facility] 7 12:29:29 Date Recorded Systolic blood pressure Diastolic blood pressure Provider Name and Address Organization Details Last Updated DateTime 02/04/2017 130 mm[Hg] 80 mm[Hg] Nena Peña MD Attn: Accounting,[address] [place], [address], [facility] 02/04/2017 12:56:21 Date Recorded Body weight Body mass index (BMI) Body height Respiratory rate Heart rate Oxygen saturation Oxygen saturation in Arterial blood by Pulse oximetry Systolic blood pressure Diastolic blood pressure Provider Name and Address Organization Details Last Updated DateTime 4 27801.7 g 24.3 kg/m2 154.94 cm 16 /min 73 /min 97 % 97 % 140 mm[Hg] 90 mm[Hg] Julianna Veronica [facility] 4 14:16:09 Date Recorded Systolic blood pressure Diastolic blood pressure Provider Name and Address Organization Details Last Updated DateTime 09/20/2023 142 mm[Hg] 84 mm[Hg] TYREE Nicolas Attn: Accounting,[address] [place], [address], [facility] 09/20/2023 15:04:45 Date Recorded Body height Body mass index (BMI) Body weight Respiratory rate Oxygen saturation Oxygen saturation in Arterial blood by Pulse oximetry Heart rate Systolic blood pressure Diastolic blood pressure Provider Name and Address Organization Details Last Updated DateTime 4 154.94 cm 24.8 kg/m2 26387.9 6 g 18 /min 99 % 99 % 71 /min 146 mm[Hg] 90 mm[Hg] Rosette Billings MA [facility] 4 17:29:43 Date Recorded Systolic blood pressure Diastolic blood pressure Provider Name and Address Organization Details Last Updated DateTime 11/01/2023 138 mm[Hg] 88 mm[Hg] TYREE Nicolas Attn: Accounting,[address] [place], [address] 11/01/2023 17:47:39 Date Recorded Body height Body mass index (BMI) Body weight Respiratory rate Oxygen saturation Oxygen saturation in Arterial blood by Pulse oximetry Heart rate Systolic blood pressure Diastolic blood pressure Provider Name and Address Organization Details Last Updated DateTime 5 154.94 cm 25.1 kg/m2 33153.7 9 g 18 /min 98 % 98 % 66 /min 136 mm[Hg] 80 mm[Hg] Rosette Billings MA [facility] 5 16:22:43 Date Recorded Systolic blood pressure Diastolic blood pressure Provider Name and Address Organization Details Last Updated DateTime 03/13/2024 140 mm[Hg] 80 mm[Hg] TYREE Nicolas Attn: Accounting,[address] [place], [address] 03/13/2024 16:45:30 Date Recorded Body height Body mass index (BMI) Body weight Heart rate Respiratory rate Body temperature Oxygen saturation Oxygen saturation in Arterial blood by Pulse oximetry Systolic blood pressure Diastolic blood pressure Provider Name and Address Organization Details Last Updated DateTime 7 160.02 cm 23.5 kg/m2 30483.7 1 g 70 /min 12 /min 98 [degF] 97 % 97 % 130 mm[Hg] 74 mm[Hg] Yamilex Champagne [facility] 7 11:58:06 Social History Question Answer Notes LastModified by Organizat ion Details LastModified Time Tobacco Smoking Status Former Smoker Quit - 2009 Yamilex arriaga [facility] 12/19/2015 14:18:22 Do You Have An Advance Directive? No [email or web address] Information not available 09/20/2023 What Is Your Level Of Alcohol Consumption? Moderate Information not available 12/19/2015 Are You Blind Or Do You Have Difficulty Seeing? No [email or web address] Information not available 09/20/2023 What Is Your Level Of Caffeine Consumption? Heavy Tea & Coffee Information not available 12/19/2015 How Much Tobacco Do You Chew? None Information not available 12/19/2015 In The 14 Days Before Symptom Onset, Have You Had Close Contact With A Laboratory-confir med COVID-19 While That Case Was Ill? No [email or web address] Information not available 09/20/2023 In The 14 Days Before Symptom Onset, Have You Had Close Contact With A Person Who Is Under Investigation For COVID-19 While That Person Was Ill? No [email or web address] Information not available 09/20/2023 Have You Been To An Area Known To Be High Risk For COVID-19? No [email or web address] Information not available 09/20/2023 Are You Currently Employed? Yes [email or web address] Information not available 09/20/2023 Are You Deaf Or Do You Have Serious Difficulty Hearing? No [email or web address] Information not available 09/20/2023 What Type Of Diet Are You Following? REGULAR Information not available 12/19/2015 Which Illicit Or Recreational Drugs Have You Used? Denies Information not available 12/19/2015 What Is Your Occupation? [employer] 7 Information not available 07/30/2016 Marital Status Informatio n not available 12/19/2015 What Was The Date Of Your Most Recent Tobacco Screening? 03/13/2024 Information not available 03/13/2024 What Is Your Relationship Status? [email or web address] Information not available 09/20/2023 Do You Use Your Seat Belt Or Car Seat Routinely? Yes [email or web address] Information not available 09/20/2023 Do You Have Smoke And Carbon Monoxide Detectors In Your Home? Yes [email or web address] Information not available 09/20/2023 At What Age Did You Start Smoking Tobacco? 15 Information not available 12/19/2015 How Much Tobacco Do You Smoke? No Information not available 11/01/2023 General Stress Level Low Information not available 02/19/2016 Do You Use Any Illicit Or Recreational Drugs? No [email or web address] Information not available 09/20/2023 Do You Use Sunscreen Routinely? Yes [email or web address] Information not available 09/20/2023 Has Tobacco Cessation Counseling Been Provided? Yes [email or web address] Information not available 09/20/2023 On What Date Was Tobacco Cessation Counseling Provided? 03/13/2024 Information not available 03/13/2024 How Many Years Have You Smoked Tobacco? 35 Information not available 12/19/2015 Do You Or Have You Ever Used Any Other Forms Of Tobacco Or Nicotine? No [email or web address] Information not available 09/20/2023 Sex: Female Functional Status Question Answer Note LastModified by Organization D etails LastModified Time Are you able to care for yourself? Yes [email or web address] Information n ot available 09/20/2023 What is your exercise level? Heavy Information not available 07/30/2016 Mental Status None recorded. Family History Relationship Description Onset Age of this Age Resolved Age Notes LastModified by Organization Details LastModified Time Father Harmful pattern of use of alcohol Not available 2015 13:58:15 Father Malignant tumor of colon Not available 2015 13:58:38 Medical History Condition Response Skin Problems Y Other Y Gynecological History Statement/Question Response Menses Monthly N Obstetrics History GPAL:G 5 P 5 0 0 5 Type Value Multiple Births 0 Full Term 5 Induced 0 Spontaneous 0 Premature 0 Living 5 Ectopics 0 Total 5 Immunizations Vaccine Type Date Status Note Provider Nam e and Address Organization Details Recorded Time pneumococcal polysaccharide PPV23 7 completed Not Available [facility] 02/25/2019 02:33:05 influenza, unspecified formulation 4 completed KLAUS Jo[place], [place] [facility] 11/01/2023 17:27:42 Influenza, high-dose, quadrivalent, PF 3 [place] [facility] 03/13/2024 16:14:28 MMR 6 completed KLA[place] [facility] 03/13/2024 16:14:28 Influenza, adjuvanted, quadrivalent, PF 2 [place] [facility] 03/13/2024 16:14:28 COVID-19, mRNA, LNP-S, PF, 100 mcg/0.5mL dose or 50 mcg/0.25mL dose 1 completed Rosette Billings [place] null, [place] [facility] 03/13/2024 16:14:28 COVID-19, mRNA, LNP-S, PF, 100 mcg/0.5mL dose or 50 mcg/0.25mL dose 1 completed Rosette Billings [place], [place] [facility] 03/13/2024 16:14:28 COVID-19, mRNA, LNP-S, PF, 100 mcg/0.5mL dose or 50 mcg/0.25mL dose 2 completed KLAUS [place] [facility] 03/13/2024 16:14:28 COVID-19, mRNA, LNP-S, PF, 100 mcg/0.5mL dose or 50 mcg/0.25mL dose 1 [place] K[place] [facility] 03/13/2024 16:14:28 COVID-19, mRNA, LNP-S, bivalent, PF, 50 mcg/0.5 mL or 25mcg/0.25 mL dose 3 [place] K[place] [facility] 03/13/2024 16:14:28 COVID-19, mRNA, LNP-S, bivalent, PF, 50 mcg/0.5 mL or 25mcg/0.25 mL dose 2 [place]LA[place] [facility] 03/13/2024 16:14:28 COVID-19, mRNA, LNP-S, PF, lawrence-sucrose, 30 mcg/0.3 mL 3 completed Rosette Billings [place], [place] [facility] 03/13/2024 16:14:28 Respiratory syncytial virus (RSV) MAB, unspecified 5 completed KLAUS [place] [facility] 03/13/2024 16:15:25 tetanus toxoid, unspecified formulation 5 completed Yamilex arriaga, [place] [facility] 12/19/2015 13:59:57 influenza, unspecified formulation 6 completed Yamilex arriaga[place] [facility] 12/19/2015 14:16:52 Past Encounters Encounter ID Performer Location Encounter Start Date Encounter Closed Date Diagnosis/Indication Diagnosis SNOMED-CT Code Diagnosis ICD10 Code Diagnosis Note [id number] [facility] [address] [place] [address] 12/19/2015 13:51:16 12/19/2015 15:12:20 Brugada syndrome 228169114 I45.89 s/p defibrilat orpt wants to wait for cardiology eval due lack of insurance Alcohol dependence 87611 003 F10.20 informatio n given to go for AA meetingpt to cut down slowly Essential hypertension 69859225 I10 not welll controlled due to noncomplia nt with med and anxiety -pt declined to take med for anxietypt to take metoprolol as prescribed [id number] [facility] [address] [place] [address] 02/19/2016 14:27:38 02/19/2016 15:14:43 Essential hypertension 54863087 I10 stablept to take metoprolol as prescribed Brugada syndrome 6797197 05 I45.89 s/p defibrilat orpt wants to see cardio -pt to call if she needs referral Administra tion of pneumococcal vaccine 10448125 Z23 [id number] [facility] [address] [place] [address] 07/30/2016 11:23:19 07/30/2016 15:15:17 Essential hypertension 35998313 I10 stablept to take metoprolol as prescribed Screening mammography 24 838710 Z12.31 pt seen by Economic Adviser in the past per pt Brugada syndrome 6210959 05 I45.89 s/p defibrilat orRefer to cardio [id number] [facility] [address] [place] [address] 02/04/2017 12:07:29 02/04/2017 17:49:08 Essential hypertension 55199540 I10 stablept to take metoprolol as prescribed Brugada syndrome 0488124 05 I45.89 s/p defibrilat orpt to f/u with cardio cardio Screening mammography 24 547108 Z12.31 pt seen by Economic Adviser [place] the [place] new Economic Adviser with [facility] ( pt has h/o breast implant ) [id number] Pablo Mercado MD [facility] [employer] [address] [place] [address] 09/20/2023 14:04:25 09/20/2023 15:26:50 Body mass index 20-24 - normal 621937080 Z68.24 BMI is 24.3 History of malignant neoplasm of skin 363007501 Z85.828 Refer to new dermatolog ist to establish care and routine checks with history of skin cancers. Patient would like to establish with a local provider. Brugada syndrome 9434985 05 I49.8 pt takes metoprolol succ ER 100mg daily and [facility] DR[facility] Garza [facility] Benign ess ential hypertension 5310958 I10 Blood pressure is 142/84 today on exam. This is slightly above goal range but patient is stable on metoprolol ER 100 mg 2 tablets p.o. daily Irritable bowel syndrome with diarrhea 879579066 K58.0 Patient is stable on p.r.n. use of Lomotil as directed Degenerati ve disorder of macula 809225734 H35.30 Patient reports a diagnosis of macular degenerati on and she is [facility] Generalize d anxiety disorder 90458897 F41.1 Patient is stable on lorazepam 0.5 mg 3 times daily on an as-needed only basis. Long-term drug therapy 093643043 Z79.899 Routine CBC, metabolic panel, liver function and thyroid panels are due Diabetes m ellitus screening 338437371 Z13.1 Screening A1c for diabetes risk assessment is due Cholesterol screening 27 6110662 Z13.220 Fasting lipid panel is due [id number] Pablo Mercado MD [facility] [employer] [address] [place] [address] 11/01/2023 16:45:27 11/01/2023 17:53:45 Contusion of left chest wall 8549744639 0866367 S20.212A Refer for chest x-ray and left-sided rib x-rays to rule out fracture Rib pain 507671048 R07.8 1 Tylenol No. 3 with codeine given for rib pain suspected fracture. Do not dose with lorazepam these must be by several hours Fall in home 04617068 Y9 2.009 Fall in her bedroom in the middle of the night when she was getting up and had a little dizziness and was trying to stabilize herself but she fell striking the left side of her torso [id number] Pablo Mercado MD [facility] [address] [address] 03/13/2024 15:55:19 03/13/2024 17:08:01 Benign essential hypertension 2908226 I10 Blood pressure is 142/84 today on exam. This is slightly above goal range but patient is stable on metoprolol ER 100 mg 2 tablets p.o. daily Generalize d anxiety disorder 15673651 F41.1 Patient is stable on lorazepam 0.5 mg 3 times daily on an as-needed only basis. Irritable bowel syndrome with diarrhea 054318240 K58.0 Patient is stable on p.r.n. use of Lomotil as directed Brugada syndrome 1404697 05 I49.8 pt takes metoprolol succ ER 100mg daily and sees DR. Garza and [facility] Body mass index 20-24 - normal 500360162 Z68.24 BMI is 24.3 History of malignant neoplasm of skin 073259369 Z85.828 Patient follows routinely with her dermatolog ist Degenerati ve disorder of macula 126407232 H35.30 Patient reports a diagnosis of macular degenerati on and she is up-to-date with her ophthalmol ogy appointmen ts Long-term drug therapy 578450324 Z79.899 Routine CBC, metabolic panel, liver function and thyroid panels are due Diabetes m ellitus screening 133825023 Z13.1 Screening A1c for diabetes risk assessment is due Cholesterol screening 27 7571986 Z13.220 Fasting lipid panel is due [facility] examination 031545716 Z00.01 Annual wellness exam completed Health Concerns Section Related Observation LastModified by Organization Detai ls LastModified Time None Recorded Concern Status LastModified by Organization Details LastModified Time None Recorded Advance Directives Directive N: Payers Encounter Date Sequence Insurance Name Policy Number Policy Kurtz Covered Member ID Kurtz Member ID Guarantor Name 07/30/2016 1 [place] [id number] Lynnmagui Doe [id number] Lynnmagui Doe 02/04/2017 1 [place] [id number] Lynn Doe [id number] Lynn Doe 09/20/2023 1 [facility] (MEDICARE REPLACEMENT/A DVANTAGE - PPO) [id number] Lynnmagui Doe [id number] Lynn Deo 11/01/2023 1 [facility] (MEDICARE REPLACEMENT/A DVANTAGE - PPO) [id number] Lynnmagui Doe [id number] Lynnmagui Doe 03/13/2024 1 [facility] (MEDICARE REPLACEMENT/A DVANTAGE - PPO) [id number] Lynn Doe [id number] Lynn Doe Notes Date Note Type Note Provider Name and Address Organization Details Recorded Time 7 text/htm l Hypertension F/UReported bypatient.Associated Symptoms:no dizziness; no chest pain; no shortness of breath; no palpitations; no edema Lifestyle:regular exercise; limiting/avoiding salt Medications:taking medications as directed; no side effects from medication Nena Peña MD Attn: Accounting[address] [place], [address], [facility] 07/30/2016 14:08:42 7 text/htm l Hypertension F/UReported bypatient.Associated Symptoms:no dizziness; no chest pain; no shortness of breath; no palpitations; no edema Lifestyle:regular exercise; limiting/avoiding salt Medications:taking medications as directed; no side effects from medication pt had recently seen the cardio who changed her defibrillator per pt . Nena Peña MD Attn: Accounting,[address] [place], [address], [facility] 02/04/2017 13:09:32 4 text/htm l Anxiety/DepressionReported bypatient.Notes:Patient is stable on lorazepam 0.5 mg t.i.d. on a p.r.n. basis onlyHypertensionReported bypatient.Duration:has noted for years Onset/Timing:better Alleviating Factors:medication Associated Symptoms:no shortness of breath; no fatigue; no palpitations; no decline in exercise capacity; no snoring Irritable bowel syndrome with diarrhea-patient has a chronic history of this condition and does take Lomotil on a p.r.n. basis. She has previously been evaluated and worked up by Gastroenterology. There are no acute changes to her IBS-D History of Brugada syndrome-patient follows with Cardiology for annual visits and is stable. Patient has history of malignant skin cancers and is due for referral to new policyholder information clerk. Patient reports macular degeneration noted on recent eye exam Patient is due for all routine labs TYREE Nicolas Attn: Accounting,[address] [facility], [place], [address], [facility] 10/07/2023 23:56:35 4 text/htm l Pt, states that she is in pain states that she had a fall she did something to her rib, under her breast into her side of the stomach, states that it started with vertigo, states that she landed on her left side. It has been about 2 1/2 weeks now sometimes leading to back pain also TYREE Nicolas Attn: Accounting,[address] [facility], [place], [address], [facility] 11/08/2023 23:24:28 5 text/htm l Anxiety/DepressionReported bypatient.Notes:Patient is stable on lorazepam 0.5 mg t.i.d. on a p.r.n. basis onlyHypertensionReported bypatient.Duration:has noted for years Onset/Timing:better Alleviating Factors:medication Associated Symptoms:no shortness of breath; no fatigue; no palpitations; no decline in exercise capacity; no snoring Irritable bowel syndrome with diarrhea-patient has a chronic history of this condition and does take Lomotil on a p.r.n. basis. She has previously been evaluated and worked up by Gastroenterology. There are no acute changes to her IBS-D History of Brugada syndrome-patient follows with Cardiology for annual visits and is stable. Patient has history of malignant skin cancers and is due for referral to new policyholder information clerk. Patient reports macular degeneration noted on recent eye exam TYREE Nicolas Attn: Accounting,[address] [facility], [place], [address], [facility] 04/02/2024 13:48:36 OBGyn Episode No OBEpisode recorded.
--- OUTSIDE RECORDS SUMMARY | 2024-06-09 03:37 | XMS_ITS | Referral Summary ---
Author Organization [facility] Address [address] [place] [address] Care Team Providers Care Hat Cutter Name Role Phone Pablo Garza MD Unavailable [phone] Earnestine Landry Primary Care Pr ovider Encounters Date Type Department Care Team Description 06/05/2024 12:15 PM CDT Ancillary Procedure [facility] [address] [place] [phone] Non-ischemic cardiomyopathy (HCC) 04/28/2024 8:45 AM CDT Office Visit [facility] [address] [place] [phone] Petr Hendrickson MD Cardiac arrhythmia, unspecified cardiac arrhythmia type (Primary Dx); Implantable defibrillator reprogramming/check; Brugada syndrome 04/28/2024 8:30 AM CDT Ancillary Procedure [facility] [address] [place] [phone] Automatic implantable cardiac defibrillator in situ (Primary Dx); VT (ventricular tachycardia) (HCC) from Last 3 Months Allergies Active Allergy Reactions Criticality Noted Date Comments Promethazine Other (See comments) Low 09/23/2023 Stroke like behavior Medications LORazepam (ATIVAN) 0.5 mg tablet Take 1 tablet (0.5 mg total) by mouth every 6 (six) hours as needed 02/10/202 1 Active rosuvastatin (CRESTOR) 5 mg tablet 2 Active acetaminophen (TYLENOL) 500 mg tablet Take 1 tablet (500 mg total) by mouth every 6 (six) hours as needed for pain Active diphenoxylate-a tropine (LOMOTIL) 2.5-0.025 mg per tablet Take 1 tablet by mouth 3 (three) times a day as needed for diarrhea 4 Active metoprolol XL (TOPROL-XL) 100 mg 24 hr tablet Take 1 Tablet (100 mg) by mouth 2 times daily. 60 tablet 11 4 Active Additional Information Patient taking differently: 100 mg Daily, Reported on 04/28/2024 Active Problems Problem Noted Date Diagnosed Date Paroxysmal atrial fibrillation 12/06/2021 Assessment & Plan (12/06/2021 12:53 PM CDT): Overall burden of atrial arrhythmia appears to be very low (none detected this recent interrogation). If she experiences a significant amount of subclinical atrial arrhythmia, we will initiate anticoagulation. The patient will follow-up with me in 12 months for an office visit and twelve- lead ECG. Anxiety 08/31/2019 Basal cell carcinoma (BCC) of face 09/15/2016 VT (ventricular tachycardia) 08/24/2016 Assessment & Plan (10/16/2020 11:58 AM CDT): The patient has Brugada syndrome, and has experienced multiple shocks for ventricular arrhythmia. During her last device revision, I placed a right atrial lead to assist with tachycardia discrimination, and to support to continued use of beta-zeenat therapy. In the time since her generator change, the patient has not received shocks for ventricular arrhythmia. In fact, no ventricular arrhythmia has been detected. Patient has, however, then found to have several episodes of brief but rapidly conducting (270 beats per minute) atrial tachycardia/flutter. The patient's device was interrogated and found to be functioning appropriately. Only changes to the patient's detection zones were made, in order to avoid inappropriate shocks for rapidly conducting atrial fibrillation/flutter. The [facility] is [facility] in [facility], and we will continue to follow with remote monitoring when possible, and in-office device checks when necessary. The patient is overall burden of atrial fibrillation is very low and asymptomatic. If she experiences greater than 24 hours of subclinical atrial fibrillation, we would consider anticoagulation. The patient will follow-up with me in 12 months for an office visit and twelve- lead ECG. Brugada syndrome 08/24/2016 Assessment & Plan (03/14/2023 1:00 PM EDITING INTERNSHIP): Brugada syndrome, status post ICD. No recent shocks. She is doing well. The patient's device was interrogated and found to be functioning appropriately. No substantial changes to programming were made. The patient is enrolled in the [facility], and we will continue to follow with remote monitoring when possible, and in-office device checks when necessary. The patient will follow-up with me in 12 months for an office visit and twelve- lead ECG. Assessment & Plan (12/06/2021 12:49 PM CDT): The patient has Brugada syndrome, with multiple shocks for ventricular arrhythmia. She now has a right atrial lead, which has been used primarily to assist with tachycardia discrimination. We have also used it to support beta-zeenat therapy. She is not experienced additional shocks for ventricular arrhythmia. The patient's device was interrogated and found to be functioning appropriately. No substantial changes to programming were made. The patient is enrolled in the [facility], and we will continue to follow with remote monitoring when possible, and in-office device checks when necessary. Implantable defibrillator reprogramming/check Overview (01/28/2017): Medtronic Evera MRI XT implanted 09/23/2016 + atrial lead, RV lead is chronic from 10/26/2008, for NICM (brugada syndrome)/LVQ-Wjauzrv-Bpzvu-[facility] Assessment & Plan (04/28/2024 1:41 PM CDT): Brugada syndrome, status post ICD. No shocks since I last saw her. She is been experiencing significant anxiety related to work, and I recommended that she discuss this with her primary care physician The patient's device was interrogated and found to be functioning appropriately. No substantial changes to programming were made. The patient is enrolled in the [facility], and we will continue to follow with remote monitoring when possible, and in-office device checks when necessary. The patient will follow-up with me in 12 months for an office visit and twelve- lead ECG. Assessment & Plan (03/11/2023 4:48 PM EDITING INTERNSHIP): Brugada syndrome, status post dual-chamber defibrillator. She has experienced multiple appropriate shocks in the past. Presently, doing well with metoprolol. The patient's device was interrogated and found to be functioning appropriately. No substantial changes to programming were made. The patient is enrolled in the [facility], and we will continue to follow with remote monitoring when possible, and in-office device checks when necessary. The patient will follow-up with me in 12 months for an office visit and twelve- lead ECG. Assessment & Plan (08/24/2016 2:47 PM CDT): The patient has a diagnosis of Brugada syndrome. She is status post placement of a single-chamber defibrillator. She is recently received multiple shocks for tachycardia in her VF zone. This likely represents ventricular tachycardia, but given the absence of discriminators and irregularity of the rhythm (TCL 270-400), atrial arrhythmia is also a possibility. These shocks occurred while the patient was using alcohol heavily. It is possible that through abstinence, the patient will avoid further shocks. In light of this, she does not want to initiate antiarrhythmic drug therapy. The patient's device was interrogated and found to be functioning appropriately. No substantial changes to programming were made. The patient is enrolled in the [facility], and we will continue to follow with remote monitoring when possible, and in-office device checks when necessary. Her device is nearing its elective replacement indicator. I would strongly favor addition of a right atrial lead for tachycardia discrimination. The patient will follow-up with me in 6 months for an office visit and twelve- lead ECG. Actinic keratosis 06/01/2016 Neoplastic disease 06/01/2016 History of nonmelanoma skin cancer 06/01/2016 Essential hypertension 12/19/2015 Alcohol dependence 12/19/2015 Social History Tobacco Use Types Packs/Day Years Used Date Smoking Tobacco: Former Smokeless Tobacco: Former Tobacco Cessation:Counseling Given: Not Answered Alcohol Use Standard Drinks/Week Comments Not Currently 0 (1 standard drink = 0.6 oz pur e alcohol) severe alcohol abuse Social Connection and Isolation Panel [NHANES] A nswer Date Recorded Frequency of Communication with Friends and Fami ly Not on file 11/01/2019 Frequency of Social Gatherings with Friends and Family Not on file 11/01/2019 Attends Cheondoism Services Not on file 10/31 Active Member of Clubs or Organizations Not on f ile 11/01/2019 Attends Club or Organization Meetings Not on jordyn e 11/01/2019 Are you , , di vorced, , never , or living with a partner? 11/01/2019 Comments No Sex and Gender Information Value Date Recorded Sex Assigned at Not on file Legal Sex Female 4:45 AM CDT Gender Identity Not on file Sexual Orientation Not on file Last Filed Vital Signs Vital Sign Reading Time Taken Comments Blood Pressure 168/92 04/28/2024 9:16 AM CDT Pulse 62 04/28/2024 9:16 AM CDT Temperature 36.7 C (98 F) 06/18/2018 1:31 PM CDT Respiratory Rate 14 06/18/2018 1:31 PM CDT Oxygen Saturation 99% 04/02/2022 10:32 AM EDITING INTERNSHIP Inhaled Oxygen Concentration - - Weight 60.9 kg (134 lb 3.2 oz) 04/28/2024 9:16 A M CDT Height 154.9 cm (5' 1 ) 04/28/2024 9:16 AM CDT Body Mass Index 25.36 04/28/2024 9:16 AM CDT Plan of Treatment Not on file Medical Devices Implanted Type Area Customer Experience Specialist Device Identifier Shelf Expiration Date Model / Serial / Lot [id number]-10/26/2008 Implanted:2008 (Quantity not on file) ICD Chest Medtronic non ischemic Procedures Procedure Name Priority Date/Time Associated Diagnosis Comments ECG 12-LEAD Routine 04/28/2024 9:17 AM CDT Cardiac arrhythmia, unspecified cardiac arrhythmia type DEVICE CHECK - IN OFFICE Routine 04/28/2024 8:23 AM CDT VT (ventricular tachycardia) (HCC) from Last 3 Months Results * ECG 12 lead (04/28/2024 9:17 AM CDT) us Petr Hendrickson MD ECG ORDERABLES Final R esult * DEVICE CHECK - IN OFFICE (04/28/2024 8:23 AM CDT) Anatomical Region Laterality Modality Other Narrative 04/29/2024 3:08 PM CDT Table formatting from the original result was not included. ICD CHECK (IN OFFICE) Patient ID: Lynn Doe is a 73 y.o. female. This patient received a Medtronic ICD. They had a routine in office device interrogation on 04/28/24 Device implant indications: Nonischemic dilated cardiomyopathy, sick sinus syndrome, Brugada syndrome, ventricular tachycardia Interrogation of the patient's device demonstrates the following: Presenting EGM: A sensed V sensed @ 63 bpm Underlying Rhythm: As above Original Device Settings Right Atrium Right Ventricle Sensitivity (mV) 0.3 mV 0.3 mV Pacing Outputs 1.5 V @ 0.4 ms 2.0 V @ 0.4 ms Testing Measurements Right Atrium Right Ventricle Sensitivity (mV) 3.6 mV 10.8 mV Impedence (Ohms) 494 ohms 570 ohms High Voltage Impedence 66 ohms Pace Threshold 0.375 V @ 0.4 ms 0.625 V @ 0.4 ms Pacing % 39.2 % Less than 0.1 % Battery Status: 2.5 years to BALDEMAR with Charge Time 4.1 seconds Episodes last 90 days/Comments: AF [place] 0%, longest duration0 There were no treated ventricular arrhythmias noted on today's in office device interrogation. NORMAL DEVICE FUNCTION PROGRAMMED MEDICATIONS: Anti-coagulant(s): None Anti-arrhythmic(s): Toprol-XL 100 mg twice daily PLAN: 1) Medtronic ICD evaluation. 2) Medtronic remote transmission scheduled in 3 months. 3) Programming appropriate for device measurements Kb Velasquez, MARCIO us Petr Hendrickson MD CV CARDIAC SERVICES PRO CEDURES Final Result from Last 3 Months Insurance [facility] MEDICARE ADVANTAGE [place] [id number] UHC MEDICARE ADVANTAGE [place] [id number] Advance Directives For more information, please contact: [phone] Documents on File Type Date Recorded Patient Record Cutter Expl anation ADVANCE DIRECTIVE 09/23/2016 Advance Di rective Checklist ADVANCE DIRECTIVE 08/20/2016 ADVANCE DIRECTIVE 03/24/2016 12:00 AM [place] OF COMMISSIONING EDITOR FINANCIAL/MEDICAL Care Teams Hat Cutter Relationship Specialty Start Date End Date Earnestine Landry PA PCP - General Physician Barrel Raiser 09/02/17 Pablo Garza MD Consulting Physician Cardiology 09/02/17
--- OUTSIDE RECORDS SUMMARY | 2024-06-09 03:37 | XMS_ITS | Clinical Summary ---
Author Organization [facility] Address [address] [place] [address] Care Team Providers Care Bus Girl Name Role Phone Pablo Garza MD Unavailable [phone] Earnestine Landry Primary Care Pr ovider Allergies Active Allergy Reactions Criticality Noted Date Comments Promethazine Other (See comments) Low 09/23/2023 Stroke like behavior Medications LORazepam (ATIVAN) 0.5 mg tablet Take 1 tablet (0.5 mg total) by mouth every 6 (six) hours as needed 1 Active rosuvastatin (CRESTOR) 5 mg tablet [...] 08/24/2016 Assessment & Plan (03/14/2023 1:00 PM SENIOR DB2 SYSTEMS PROGRAMMER): Brugada syndrome, status post ICD. No recent [...] is chronic from 10/26/2008, for NICM (brugada syndrome)/T[facility]-Tramtgl-Fcwri-Nathan Assessment & Plan (04/28/2024 1:41 PM CDT): [...] ECG. Assessment & Plan (03/11/2023 4:48 PM SENIOR DB2 SYSTEMS PROGRAMMER): Brugada syndrome, status post dual-chamber defibrillator. She [...] 06/01/2016 Essential hypertension 12/19/2015 Alcohol dependence 12/19/2015 Encounters Date Type Department Care Team Description 06/05/2024 12:15 PM CDT Ancillary Procedure [facility] [address] [place] [phone] Non-ischemic cardiomyopathy (HCC) 04/28/2024 8:45 AM CDT Office Visit Arrhythmia [address] [phone] Petr Hendrickson MD Cardiac arrhythmia, unspecified cardiac arrhythmia type (Primary Dx); Implantable defibrillator reprogramming/check; Brugada syndrome 04/28/2024 8:30 AM CDT Ancillary Procedure Arrhythmia [address] [phone] Automatic implantable cardiac defibrillator in situ (Primary Dx); VT (ventricular tachycardia) (HCC) from Last 3 Months Surgical History Surgery Date Site/Laterality Comments INSERT / REPLACE / REMOVE PACEMAKER TUBAL LIGATION Medical History Medical History Date Comments Chest pain High risk medication use Shortness of breath Syncope AICD (automatic cardioverter/defibrillator) present 08/20/2016 Medtronic Virtuoso VVI/ICD implanted 10/26/2008 for NICM (brugada syndrome), Madhavi EP Colitis Family History Medical History Relation Name Comments Arrhythmia Brother Relation Name Status Comments Brother Social History Tobacco Use Types Packs/Day Years [...] and Family Not on file 11/01/2019 Attends Confucianist Services Not on file 10/31 Active Member [...] on file Sexual Orientation Not on file Obstetrics History Para Term AB IAB SAB Ectopic Multiple Livin g Live Births 5 5 Date Outcome GA Total Labor Labor/2nd/3rd Weight Sex Type Anes PTL Dona A1 A5 Name Clin 1981 Para Vag-Spo nt 1984 Para Vag-Spo nt 1987 Para Vag-Spo nt 1989 Para Vag-Spo nt 1993 Para Vag-Spo nt Last Filed Vital Signs Vital Sign Reading Time Taken Comments Blood Pressure 168/92 04/28/2024 9:16 AM CDT Pulse 62 04/28/2024 9:16 AM CDT Temperature 36.7 C (98 F) 06/18/2018 1:31 PM CDT Respiratory Rate 14 06/18/2018 1:31 PM CDT Oxygen Saturation 99% 04/02/2022 10:32 AM SENIOR DB2 SYSTEMS PROGRAMMER Inhaled Oxygen Concentration - - Weight 60.9 kg (134 lb 3.2 oz) 04/28/2024 9:16 A M CDT Height 154.9 cm (5' 1 ) 04/28/2024 9:16 AM CDT Body Mass Index 25.36 04/28/2024 9:16 AM CDT Plan of Treatment Health Maintenance Due Date Last Done Comments Breast Cancer Screening-Mammogram 1950 Colon Cancer Screening-Colonoscopy 1950 Depression Screening 1952 Fall Risk Assessment 1950 Hepatitis C Screening 1950 Osteoporosis Screening-Bone Density Scan 1950 DTaP/Tdap/Td Vaccine (1 - Tdap) 10/04/1963 Hepatitis B Screening 1970 Zoster Vaccine (1 of 2) 2002 02/08/2015 Pneumococcal vaccine 65+ (2 of 2 - PCV) 02/18/2017 02/19/2016, 02/09/2016 Well Visit 65+ 10/31/2020 11/01/2019 Covid-19 Vaccine ( - 2023-2 5 season) 2023 05/18/2021, 12/08/2020, 04/20/2020, Additional history exists Influenza Vaccine Completed 10/16/2023, , 10/10/2015 Medical Devices Implanted Type Area Instrument Lens Inspector Device Identifier Shelf Expiration Date Model / [...] 4.1 seconds Episodes last 90 days/Comments: AF [place] 0%, longest duration0 There were no treated ventricular arrhythmias noted on today's in office device interrogation. NORMAL DEVICE FUNCTION PROGRAMMED MEDICATIONS: Anti-coagulant(s): None Anti-arrhythmic(s): Toprol-XL 100 mg twice daily PLAN: 1) Medtronic ICD evaluation. 2) Medtronic remote transmission scheduled in 3 months. 3) Programming appropriate for device measurements Kb Velasquez RN Petr Hendrickson MD CV CARDIAC SERVICES PRO CEDURES Final Result from Last 3 Months Insurance UHC MEDICARE ADVANTAGE [facility] MEDICARE Address: [address] [address] [place] [address] [facility] MEDICARE Address: [address] [address] [place] [address] [facility] MEDIC[facility] Address: [address] [address] [place] [address] Advance Directives For more information, please contact: [phone] Documents on File Type Date Recorded Patient Make Up Operator Expl anation ADVANCE DIRECTIVE 09/23/2016 Advance Di rective Checklist ADVANCE DIRECTIVE 08/20/2016 ADVANCE DIRECTIVE 03/24/2016 12:00 AM HILL [place] OF APPLICATION PROJECT LEADER FINANCIAL/MEDICAL Care Teams Bus Girl Relationship Specialty Start Date End Date Earnestine Landry PA PCP - General Physician Health Care Sanitary Technician 09/02/17 Pablo Garaz MD Consulting Physician Cardiology 09/02/17
--- OUTSIDE RECORDS SUMMARY | 2024-06-09 03:37 | XMS_ITS | Clinical Summary ---
Author Organization [facility] Address [address] Attn: Epic Prelude ADT [place] [phone] Care Team Providers Care Hospital Attendant Name Role Phone Unavailable Primary Care Provider Unavailabl e Allergies No known active allergies Medications acetaminophen- codeine (TYLENOL #3) 300-30 mg tablet Take 1 Tablet by mouth every 8 hours as needed. 15 Tablet 08/18/2021 6:53 PM CDT 2 Active moxifloxacin (Vigamox) 0.5 % solution INSTILL 1 DROP INTO AFFECTED EYE(S) BY OPHTHALMIC ROUTE 3 TIMES PER DAY 3 mL 02/16/2022 10:51 AM GLOBAL SAFETY OFFICER 3 Active metoprolol succinate (TOPROL XL) 100 mg Extended Release 24 hour tablet Take 1 tablet (100 mg total) by mouth 2 (two) times a day 60 Tablet 3 Active diphenoxylate- atropine 2.5 mg-0.025 mg tablet Take 1 Tablet by mouth 4 times daily as needed. 30 Tablet 2 07/15/2022 10:02 AM CDT 3 Active LORazepam (ATIVAN) 0.5 mg tablet Take 1 Tablet (0.5 mg) by mouth 3 times daily as needed. 90 Tablet 3 11/19/2022 3:40 PM CDT 3 Active diphenoxylate- atropine 2.5 mg-0.025 mg tablet Take 1 Tablet by mouth 3 times daily as needed. 90 Tablet 1 10/08/2022 2:24 PM CDT 3 Active LORazepam (ATIVAN) 0.5 mg tablet Take 1 Tablet (0.5 mg) by mouth 3 times daily as needed. 90 Tablet 10/23/2022 3:00 PM CDT 3 Active ofloxacin (OCUFLOX) 0.3 % solution Administer 1 drop in affected eye(s) 4 times daily. 10 mL 12/11/2022 2:53 PM CDT 3 Active docusate sodium (Colace) 100 mg capsule Take 1 Capsule (100 mg) by mouth 2 times daily. 14 Capsule 3 Active ondansetron (ZOFRAN) 4 mg Tablet Take 1 Tablet (4 mg) by mouth every 6 hours as needed for nausea. 30 Tablet 02/05/2023 12:12 PM GLOBAL SAFETY OFFICER 3 Active HYDROcodone-ac etaminophen (NORCO) 5-325 mg tablet Take 1 Tablet by mouth every 6 hours as needed for pain 30 Tablet 02/05/2023 12:12 PM GLOBAL SAFETY OFFICER 3 Active LORazepam (ATIVAN) 0.5 mg tablet Take 1 Tablet (0.5 mg) by mouth 3 times daily as needed. 90 Tablet 04/02/2023 3:19 PM GLOBAL SAFETY OFFICER 4 Active nitrofurantoin (Macrobid) 100 mg capsule Take 1 Capsule (100 mg) by mouth 2 times daily. 14 Capsule 04/30/2023 11:21 AM CDT 4 Active metoprolol succinate (TOPROL XL) 100 mg Extended Release 24 hour tablet Take 2 Tablets (200 mg) by mouth daily. 60 Tablet 1 10/31/2023 12:59 PM CDT 4 Active acetaminophen- codeine (TYLENOL #3) 300-30 mg tablet Take 1 Tablet by mouth every 8 hours as needed for rib pain. DO NOT DOSE WITH LORAZEPAM 21 Tablet 11/01/2023 5:13 PM CDT 4 Active metoprolol succinate (TOPROL XL) 100 mg Extended Release 24 hour tablet Take 1 Tablet (100 mg) by mouth 2 times daily. 60 Tablet 11 03/24/2024 2:53 PM GLOBAL SAFETY OFFICER 4 02/01/20 25 Active LORazepam (ATIVAN) 0.5 mg tablet Take 1 Tablet (0.5 mg) by mouth 3 times daily as needed. 90 Tablet 01/28/2024 3:11 PM GLOBAL SAFETY OFFICER 4 Active ofloxacin (OCUFLOX) 0.3 % solution INSTILL ONE DROP INTO BOTH EYES NEEDED 5 mL 03/09/2024 3:10 PM GLOBAL SAFETY OFFICER 5 Active LORazepam (ATIVAN) 0.5 mg tablet Take 1 Tablet (0.5 mg) by mouth 3 times daily as needed. 90 Tablet 03/25/2024 11:22 AM GLOBAL SAFETY OFFICER 5 Active diphenoxylate- atropine 2.5 mg-0.025 mg tablet Take 1 Tablet by mouth 3 times daily as needed. 90 Tablet 05/12/2024 3:30 PM CDT 5 Active LORazepam (ATIVAN) 0.5 mg tablet Take 1 Tablet (0.5 mg) by mouth 3 times daily as needed. 90 Tablet 5 Active diphenoxylate- atropine 2.5 mg-0.025 mg tablet Take 1 Tablet by mouth 3 times daily as needed. 90 Tablet 04/14/2024 6:21 PM GLOBAL SAFETY OFFICER 5 05/12/19 25 Discontinu ed(Reorder ) LORazepam (ATIVAN) 0.5 mg tablet Take 1 Tablet (0.5 mg) by mouth 3 times daily as needed. 90 Tablet 04/14/2024 6:21 PM GLOBAL SAFETY OFFICER 5 05/12/19 25 Discontinu ed(Reorder ) LORazepam (ATIVAN) 0.5 mg tablet Take 1 Tablet (0.5 mg) by mouth 3 times daily as needed. 90 Tablet 05/12/2024 3:30 PM CDT 5 06/08/19 25 Discontinu ed(Reorder ) Immunizations Immunization Administration Dates Next Due (AREXVY)(60 YR UP) RSV, STEPHANIE MBINANT, PROTEIN SUBUNIT RSVPREF, ADJUVANT RECONSTITUTED, 0.5 ML, PF 02/24/2024 Social History Tobacco Use Types Packs/Day Years Used Date Smoking Tobacco: Never Assessed Comments Unknown Sex and Gender Information Value Date Recorded Sex Assigned at Not on file Legal Sex Female 3:27 PM CDT Gender Identity Not on file Sexual Orientation Not on file Plan of Treatment Health Maintenance Due Date Last Done Comments DTAP/TDAP/TD VACCINES (1 - Tdap) 10/04/1971 BREAST CANCER SCREENING 1992 COLORECTAL SCREENING 1997 Colorectal Cancer Screening 1997 FIT-DNA Q 3 years 1997 FIT/FOBT Q 1 year 1997 Flex Sig/CT Colonography Q 5 years 1997 PNEUMOCOCCAL VACCINE 50+ YEARS (1 of 1 - PCV) 10/04/19 03 ZOSTER VACCINE (1 of 2) 2002 OSTEOPOROSIS SCREENING 2017 INFLUENZA VACCINE (#1) 2023 RSV VACCINE (60+ or ) Completed 02/24/2024 Insurance RX [employer] RX Member Subscriber Plan / Payer (Ef fective for All Dates) Name:LYNN RIZZO Relation to Subscriber:Self Name:Lynn Rizzo Payer ID:Not on file Group ID:[id number] Type:RX Medicare Part D Address: [address] RX [employer] (INTERNAL) [facility]
--- OUTSIDE RECORDS SUMMARY | 2024-06-09 03:37 | XMS_ITS | Continuity of Care Document ---
Author Organization [facility] Address [address] [place] [address] Phone Care Team Providers Care Child And Family Services Worker Name Role Phone Scar Kumar MD Unavailable Unavailable Allergies, Adverse Reactions, Alerts Substance Reaction Status Criticality No Known Drug Allergies Active No I nformation Medications Medication Instructions Dosage Effective Dates (start - stop) Status Comments Solaraze 3 % Topical Gel apply by topical route 2 times every day to lesion areas - Active Efudex 5 % Topical Cream apply by topical route 2 times every day a sufficient amount to cover the lesions in the affected area(s) 0.00 - Active CLOBEX 0.05 % Topical [place] apply by topical route 2 times every day to the affected area(s) ; rub in gently and completely 0.00 - Active Topicort 0.25 % Topical Cream apply by topical route 2 times every day to the affected area(s) - Active Zithromax 250 mg Tab Z-Александр - Activ e GARAMYCIN 0.3 %DROPS Apply two drops to affected eye(s) four times per day - Active Phenergan VC-Codeine 5 mg-6.25 mg-10 mg/5 mL Syrup 10cc q 8 hours prn - Active Procedures Procedure Date Offic/outpt E&m Estab Low-mod 3 Offic/outpt E&m Estab Low-mod 2 Offic/outpt E&m Estab Low-mod 1 Offic/outpt E&m Estab Minor 07 Advance Directives Directive Yes / No Effective Date File Name No Information Encounters Encounter Description Practice Location Reason(s) For Visit Diagnoses Date Provider Providers Copied on Encounter [facility], [address] [place] [address], [id number], tel:[phone] [facility] No Information José Abbott. [address] [place] [address], [id number], . tel:[phone] Offic/outpt E&m Estab Low-mod [facility], [address] [place] [address], [id number], tel:[phone] [facility] growth (chief complaint)g kanwal (chief complaint) Unc Behav Justin SkinUnc Behav Justin SkinChr Solar Dermatitis Nec José Abbott. [address] [place] [address], [id number], . tel:[phone] [facility], [address] [place] [address], [id number], tel:[phone] [facility] No Information José Abbott. [address] [place] [address], [id number], [place]. tel:[phone] Offic/outpt E&m Estab Lowmod [facility], [address] [place] [address], [id number], tel:[phone] [facility] No Information José Abbott. [address] [place] [address], [id number], [place]. tel:[phone] [facility], [address] [place] [address], [id number], tel:[phone] [facility] [place] No Information José Abbott. [address] [place] [address], [id number], . tel:[phone] Offic/outpt E&m Estab Lowmod [facility], [address] [place] [address], [id number], tel:[phone] [facility] No Information José Abbott. [address] [place] [address], [id number], [place]. tel:[phone] Offic/outpt E&m Estab Minor 10 [facility], [address] [place] [address], [id number], tel:[phone] [facility] diarrhea (chief complaint) No Information Kaitlin Daugherty. [address] [place] [address], [id number], [place]. tel:[phone] [facility], [address] [place] [address], [id number], tel:[phone] [facility] No Information Franklynlauri Dat. [address] [place] [address], [id number], . tel:[phone] [facility], [address] [place] [address], [id number], tel:[phone] [facility] No Information Franklynlauri Dat. [address] [place] [address], [id number], [place]. tel:[phone] Family History Family Member Type Diagnosis Age At Onset No Information Payers Payer name Insurance type Covered green party ID Authoraliciaa paolomehdi(s) [employer] Non HMO Specialty CI [id number] [facility] Insurance Company CI [id number] Social History Type Description Quantity Date Captured Comments Sex Female Smoking Status No Information Chief Complaint And Reason For Visit No Information Reason For Referral Reason For Referral No Information History Of Present Illness Encounter Date Complaint History Of Prese nt Illness No Information Functional Status Date Functional Assessmen t No Information Instructions Date Instruction Additional Infor mation No Information Assessments Type Assessment Date No Information Patient Care Teams Name Effective Dates (start - stop) Status Members No Information
[2024-06-09 03:39] LABS: Add Urine Microscopic? YES; Appearance Urine Cloudy (Clear); Bacteria Urine 4+ /hpf; Bilirubin Urine Negative (Negative); Blood Urine Trace (Negative); Color Urine Yellow (Yellow); Glucose Urine UA Negative (Negative); Hyaline Casts Urine Present /lpf; Ketones Urine 2+ mg/dL (Negative); Leukocyte Esterase Ur Trace LEU/UL (Negative); Need Manual Microscopic Reviewed; Nitrate Urine Negative (Negative); Protein Urine 2+ mg/dL (Negative); RBC Urine 0-2 /hpf (0-2); Specific Grav Ur 1.019 (1.001-1.035); Squamous Epithelial Cell Urine None Seen /hpf (Few); Urobilinogen Urine 0.2 mg/dL (<2.0)
[2024-06-09 03:41] LABS: Amphetamine Screen Urine Negative (Negative); Barbiturate Screen Urine Negative (Negative); Benzodiazepines Screen Urine Negative (Negative); Cannabinoid Screen Urine Negative (Negative); Cocaine Screen Urine Negative (Negative); Methadone Screen Urine Negative (Negative); Opiate Screen Urine Negative (Negative); Phencyclidine Screen Urine Negative (Negative)
--- NOTE | 2024-06-09 04:08 | ED_ITS ---
HPI - General Adult General Chief complaint: Unspecified <Violet Cagle MD - Last Filed: 06/09/24 18:59> Stated complaint: Nausea; pacemaker fired ; ETOH x several days <Violet Cagle MD - Last Filed: 06/09/24 18:59> Time Seen by Provider: 06/09/24 02:52 <Violet Cagle MD - Last Filed: 06/09/24 18:59> History of Present Illness HPI narrative: Patient is a 73-year-old female who presents to the emergency department this evening complaining of heart palpitations, nausea, vomiting which all started a few hours ago. Patient admits that she has been heavily drinking for the past 3 days, mainly drinking vodka. Admits that she does have a history of alcohol abuse but has quit alcohol for many years and has only been drinking again for the past 3 days. Denies any history of alcohol withdrawal. Denies any chest pain, shortness of breath, and denies any abdominal pain. Patient admits to a history of got a syndrome and states that she has an ICD which was placed approximately 2 years ago for her bra got. Patient states that she thinks that her pacemaker/ICD fired but she is unsure. Denies any lightheadedness or near syncopal episodes. No additional symptoms or concerns at this time. <Violet Cagle MD - Last Filed: 06/09/24 18:59> Related Data Home medications: Home Medications ?Medication ?Instructions ?Recorded ?Confirmed ?Last Taken ?Type metoprolol succinate 50 mg 150 mg PO DAILY 01/08/19 02/19/23 02/19/23 06:00 History tablet,extended release 24 hr acetaminophen 325 mg capsule 325 mg PO ONCE PRN Pain 04/12/19 02/19/23 02/18/23 History (Tylenol) ascorbic acid (vitamin C) 1,000 mg 1 g PO DAILY 04/12/19 02/19/23 02/16/23 History tablet (Vitamin C) cholecalciferol (vitamin D3) 25 25 mcg PO DAILY 04/18/19 02/19/23 02/16/23 History mcg (1,000 unit) chewable tablet lorazepam 0.5 mg tablet 0.5 mg PO DAILY PRN Anxiety 05/29/21 02/19/23 02/16/23 History diphenoxylate-atropine 2.5 1 tablet PO TID 02/16/23 02/19/23 02/19/23 06:00 History mg-0.025 mg tablet (Lomotil) magnesium 250 mg tablet 250 mg PO DAILY 02/16/23 02/19/23 02/16/23 History <Violet Cagle MD - Last Filed: 06/09/24 18:59> Allergies/adverse reactions: Allergies Allergy/AdvReac Type Severity Reaction Status Date / Time No Known Allergies Allergy Verified 04/07/24 18:41 <Violet Cagle MD - Last Filed: 06/09/24 18:59> Review of Systems 2 Review of Systems: All systems are reviewed and are negative unless stated otherwise in the HPI. <Violet Cagle MD - Last Filed: 06/09/24 18:59> PMFSH Past Medical History Medical History: Medical History Arthritis of both hands Diverticulosis Skin cancer History of basal cell carcinoma of the face. Anxiety Depression Arthritis Cardiac defibrillator in place Generator replaced within the past 2 years. Brugada syndrome Status post ICD insertion. She is a patient of Drs. Garza and Cruz at [facility]. <Violet Cagle MD - Last Filed: 06/09/24 18:59> Surgical History Surgical History: Surgical History History of bowel resection small bowel resection 01/16/19 History of colonoscopy findings of diverticulosis History of dilation and curettage History of surgery on wrist bilateral anchovy type CMC arthroplasty History of breast augmentation History of abdominoplasty H/O shoulder surgery Right shoulder. History of appendectomy At the age of 9. <Violet Cagle MD - Last Filed: 06/09/24 18:59> Family History Family History: Family History Father Carcinoma of colon Alcoholism Grandparent Alcoholism Cancer Depression <Violet Cagle MD - Last Filed: 06/09/24 18:59> Social History Social History: Social History Social History: The patient lives in [place]. She lived is originally from [place] and lived in [place] before moving here in September 2015 to be closer to her grandchildren. She works for the [place]. She smoked a pack of cigarettes per day for many years, but quit several years ago. She has a long history of alcoholism but has abstained for several years. She denies drug use. Primary care provider is TYREE Nicolas. She designates her daughter and son, Jennie Springer, as her surrogate decision makers and she wishes to be a full code. 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 HEENT: PERRL, no rhinorrhea, no post nasal drip, oropharynx clear. Neck: Trachea midline, no JVD, no lymphadenopathy. Cardiovascular: Regular rate and rhythm, no murmurs, rubs or gallops, no peripheral edema. Respiratory: Clear to auscultation bilaterally, no tachypnea, no wheezing, no rhonchi, no rubs, no respiratory distress. Abdomen: Soft, nontender, nondistended, no rebound, no guarding, no peritoneal signs. Musculoskeletal: No joint swelling or deformity, normal muscle tone. Skin: No rashes or petechia, no signs of infection. Psychiatric: Alert and oriented, anxious, otherwise normal behavior and judgment for situation. Neurological: Alert and oriented to person, place, and time. Follows all commands. No focal deficits, speech is clear and fluent. <Violet Cagle MD - Last Filed: 06/09/24 18:59> Course Vital Signs Vital signs: Vital Signs Pulse Rate 94 06/09/24 03:04 Respiratory Rate 16 06/09/24 03:04 Blood Pressure 129/73 06/09/24 03:04 Pulse Oximetry 96 06/09/24 03:04 Oxygen Delivery Room Air 06/09/24 03:04 Temperature 98.2 F 06/09/24 11:33 Pulse Rate 102 H 06/09/24 11:33 Respiratory Rate 16 06/09/24 11:33 Blood Pressure 152/75 H 06/09/24 11:33 Pulse Oximetry 100 06/09/24 11:33 Oxygen Delivery Room Air 06/09/24 03:04 <Violet Cagle MD - Last Filed: 06/09/24 18:59> Vital Signs Pulse Rate 94 06/09/24 03:04 Respiratory Rate 16 06/09/24 03:04 Blood Pressure 129/73 06/09/24 03:04 Pulse Oximetry 96 06/09/24 03:04 Oxygen Delivery Room Air 06/09/24 03:04 Temperature 98.2 F 06/09/24 11:33 Pulse Rate 102 H 06/09/24 11:33 Respiratory Rate 16 06/09/24 11:33 Blood Pressure 152/75 H 06/09/24 11:33 Pulse Oximetry 100 06/09/24 11:33 Oxygen Delivery Room Air 06/09/24 03:04 <Melquiades Barahona III, DO - Last Filed: 06/09/24 17:28> Medical Decision Making MDM Narrative Medical decision making narrative: The patient was evaluated by myself in the emergency department. History is obtained from patient who is an independent historian and physical exam was performed. External medical records were reviewed at this time. IV was established and pertinent tests were ordered. Patient was administered 4 mg of IV Zofran for nausea/vomiting, patient received 4 mg of Zofran via EMS prior to arrival but is requesting additional nausea medicine at this time. She was also administered 2 L IV fluid bolus with normal saline. EKG was obtained which revealed sinus rhythm rate of 91 beats per minute. No ST changes, T wave inversions or evidence of acute ischemia. EKG was independently interpreted by me and is currently pending official cardiology read. While in the emergency department, patient had a 10 second run of SVT that resolved spontaneously. Laboratory results obtained revealing alcohol level of 88, bicarb 15, anion gap 25 likely secondary to starvation ketosis. Mild transaminitis with an AST of 46 and an ALT of 41, otherwise unremarkable. Urinalysis revealed 2+ ketones, leuk esterases, 11-20 white blood cells and 4+ bacteriuria. Patient denies any urinary symptoms. Patient is clinically sober. Differential diagnosis considerations include arrhythmia, dehydration, electrolyte derangements, alcohol intoxication, alcohol withdrawal. Comorbidities impacting this visit include history of alcohol abuse. I have evaluated and discussed social determinants of health with the patient that could potentially impact subsequent diagnosis and treatment plans. On repeat assessment of the patient, reevaluation revealed that the patient is doing well and is in no acute distress. Patient symptoms have improved since she arrived to our emergency department, patient is requesting something for her anxiety and at this time she was administered 0.5 mg of IV Ativan. Repeat vital signs were all reviewed and noted to be stable. Differential diagnosis and treatment plan were discussed with the patient at bedside. Patient agrees with discussion and after shared medical decision making agrees with discharge. All questions were answered to the patient's satisfaction. Patient will follow up with her PCP in 3-5 days. Patient was provided with strict return precautions and instructed to return to the emergency department if any new or worsening symptoms develop. The patient was discharged in stable condition. Assumed care from Dr Cagle at 0700 awaiting pacemaker interrogation. Pt had brief run of tachcardia appeared sinus on monitor. Repeat ekg unchanged and now in nsr. Pt pacer interrogated, did have tachy run which was shocked. Results sent to staple processing machine operator. Pt will call for follow up. <Violet Cagle MD - Last Filed: 06/09/24 18:59> The patient was evaluated by myself in the emergency department. History is obtained from patient who is an independent historian and physical exam was performed. External medical records were reviewed at this time. IV was established and pertinent tests were ordered. Patient was administered 4 mg of IV Zofran for nausea/vomiting, patient received 4 mg of Zofran via EMS prior to arrival but is requesting additional nausea medicine at this time. She was also administered 2 L IV fluid bolus with normal saline. EKG was obtained which revealed sinus rhythm rate of 91 beats per minute. No ST changes, T wave inversions or evidence of acute ischemia. EKG was independently interpreted by me and is currently pending official cardiology read. While in the emergency department, patient had a 10 second run of SVT that resolved spontaneously. Laboratory results obtained revealing alcohol level of 88, bicarb 15, anion gap 25 likely secondary to starvation ketosis. Mild transaminitis with an AST of 46 and an ALT of 41, otherwise unremarkable. Urinalysis revealed 2+ ketones, leuk esterases, 11-20 white blood cells and 4+ bacteriuria. Patient denies any urinary symptoms. Patient is clinically sober. Differential diagnosis considerations include arrhythmia, dehydration, electrolyte derangements, alcohol intoxication, alcohol withdrawal. Comorbidities impacting this visit include history of alcohol abuse. I have evaluated and discussed social determinants of health with the patient that could potentially impact subsequent diagnosis and treatment plans. On repeat assessment of the patient, reevaluation revealed that the patient is doing well and is in no acute distress. Patient symptoms have improved since she arrived to our emergency department, patient is requesting something for her anxiety and at this time she was administered 0.5 mg of IV Ativan. Repeat vital signs were all reviewed and noted to be stable. Differential diagnosis and treatment plan were discussed with the patient at bedside. Patient agrees with discussion and after shared medical decision making agrees with discharge. All questions were answered to the patient's satisfaction. Patient will follow up with her PCP in 3-5 days. Patient was provided with strict return precautions and instructed to return to the emergency department if any new or worsening symptoms develop. The patient was discharged in stable condition. assumed care from Dr Cagle at 0700 awaiting pacemaker interrogation. Pt had brief run of tachcardia appeared sinus on monito. repeat ekg unchanged and now in nsr. Pt pacer interrogated, did have tachy run which was shocked. results sent to staple processing machine operator. pt will call for follow up. <Melquiades Barahona III, DO - Last Filed: 06/09/24 17:28> Vital Signs Vital Signs: Vital Signs Pulse Rate 94 06/09/24 03:04 Respiratory Rate 16 06/09/24 03:04 Blood Pressure 129/73 06/09/24 03:04 Pulse Oximetry 96 06/09/24 03:04 Oxygen Delivery Room Air 06/09/24 03:04 Temperature 98.2 F 06/09/24 11:33 Pulse Rate 102 H 06/09/24 11:33 Respiratory Rate 16 06/09/24 11:33 Blood Pressure 152/75 H 06/09/24 11:33 Pulse Oximetry 100 06/09/24 11:33 Oxygen Delivery Room Air 06/09/24 03:04 <Violet Cagle MD - Last Filed: 06/09/24 18:59> Vital Signs Pulse Rate 94 06/09/24 03:04 Respiratory Rate 16 06/09/24 03:04 Blood Pressure 129/73 06/09/24 03:04 Pulse Oximetry 96 06/09/24 03:04 Oxygen Delivery Room Air 06/09/24 03:04 Temperature 98.2 F 06/09/24 11:33 Pulse Rate 102 H 06/09/24 11:33 Respiratory Rate 16 06/09/24 11:33 Blood Pressure 152/75 H 06/09/24 11:33 Pulse Oximetry 100 06/09/24 11:33 Oxygen Delivery Room Air 06/09/24 03:04 <Melquiades Barahona III, DO - Last Filed: 06/09/24 17:28> Lab Data Result diagrams: 06/09/24 03:14 06/09/24 03:14 <Violet Cagle MD - Last Filed: 06/09/24 18:59> Labs: Lab Results 06/09/24 06/09/24 Range/Units 02:58 03:14 WBC 10.6 H (4.5-10.0) K/mm3 RBC 4.17 L (4.2-5.4) M/mm3 Hgb 13.5 (12.0-15.0) g/dL Hct 41.0 (37.0-47.0) % MCV 98.3 (80-100) fl MCH 32.4 (26-34) pg MCHC 32.9 (32-36) g/dl RDW 14.2 (11.5-14.5) % Plt Count 312 (150-375) k/mm3 MPV 9.1 (7.4-10.4) fl Immature Gran % (Auto) 0.4 (0-0.5) % Neut % (Auto) 87.9 H (45.5-73.1) % Lymph % (Auto) 8.9 L (18.3-44.2) % [place] % (Auto) 2.4 L (2.6-8.5) % Eos % (Auto) 0.0 (0-4.4) % Baso % (Auto) 0.4 (0.2-1.2) % Lymph # (Auto) 0.94 (0.9-3.2) K/mm3 [place] # (Auto) 0.3 (0.1-0.6) K/mm3 Eos # (Auto) 0.0 (0-0.3) K/mm3 Baso # (Auto) 0.0 (0.0-0.1) K/mm3 Abs Immat Gran (auto) 0.04 H (0.00-0.031) K/mm3 Absolute Neuts (auto) 9.3 H (1.3-6.7) K/mm3 Absolute Nucleated RBC 0.000 (0.0-0.012) K/mm3 Nucleated RBC % 0.0 (0.0-0.2) % Sodium 142 (137-145) mmol/L Potassium 4.1 (3.4-5.0) mmol/L Chloride 102 (98-107) mmol/L Carbon Dioxide 15 L (22-30) mmol/L Anion Gap 25 H (4-12) mmol/L BUN 21 H (7-17) mg/dL Creatinine 0.71 (0.7-1.0) mg/dL Estim Creat Clear Calc 54 ml/min Estimated GFR > 60 (59 - ) Glucose 80 (65-110) mg/dL POC Capillary Glucose 88 (65-105) mg/dl Calcium 9.4 (8.4-10.2) mg/dL Magnesium 1.8 (1.6-2.3) mg/dL Total Bilirubin 0.4 (0.2-1.3) mg/dL AST 46 H (14-36) U/L ALT 41 H (6-35) U/L Alkaline Phosphatase 150 H (38-126) U/L Total Protein 8.0 (6.3-8.2) g/dL Albumin 5.1 (3.5-5.1) g/dL Lipase 88 (23-300) U/L Urine Color Yellow (Yellow) Urine Appearance Cloudy H (Clear) Urine pH 5.0 (5.0-9.0) Ur Specific [place] 1.019 (1.001-1.035) Urine Protein 2+ H (Negative) mg/dL Urine Glucose (UA) Negative (Negative) mg/dL Urine Ketones 2+ H (Negative) mg/dL Ur Blood (Man) Trace (Negative) Urine Nitrate Negative (Negative) Urine Bilirubin Negative (Negative) Urine Urobilinogen 0.2 (<2.0) mg/dL Add Ur Microanalysis Reviewed Leukocyte Esterase Rfl Trace H (Negative) AICHA/UL Urine RBC 0-2 (0-2) /hpf Urine WBC 11-20 H (0-3) /hpf Ur Squamous Epith Cells None seen (Few) /hpf Urine Bacteria 4+ H /hpf Urine Casts 11-20 Hyaline Casts Present (None) /lpf Urine Opiates Screen Negative (Negative) Urine Methadone Screen Negative (Negative) Ur Barbiturates Screen Negative (Negative) Ur Phencyclidine Scrn Negative (Negative) Ur Amphetamine Screen Negative (Negative) U Benzodiazepines Scrn Negative (Negative) Urine Cocaine Screen Negative (Negative) U Cannabinoids Screen Negative (Negative) Ethyl Alcohol 84 (<10) mg/dL <Violet Cagle MD - Last Filed: 06/09/24 18:59> Lab Results 06/09/24 06/09/24 Range/Units 02:58 03:14 WBC 10.6 H (4.5-10.0) K/mm3 RBC 4.17 L (4.2-5.4) M/mm3 Hgb 13.5 (12.0-15.0) g/dL Hct 41.0 (37.0-47.0) % MCV 98.3 (80-100) fl MCH 32.4 (26-34) pg MCHC 32.9 (32-36) g/dl RDW 14.2 (11.5-14.5) % Plt Count 312 (150-375) k/mm3 MPV 9.1 (7.4-10.4) fl Immature Gran % (Auto) 0.4 (0-0.5) % Neut % (Auto) 87.9 H (45.5-73.1) % Lymph % (Auto) 8.9 L (18.3-44.2) % [place] % (Auto) 2.4 L (2.6-8.5) % Eos % (Auto) 0.0 (0-4.4) % Baso % (Auto) 0.4 (0.2-1.2) % Lymph # (Auto) 0.94 (0.9-3.2) K/mm3 [place] # (Auto) 0.3 (0.1-0.6) K/mm3 Eos # (Auto) 0.0 (0-0.3) K/mm3 Baso # (Auto) 0.0 (0.0-0.1) K/mm3 Abs Immat Gran (auto) 0.04 H (0.00-0.031) K/mm3 Absolute Neuts (auto) 9.3 H (1.3-6.7) K/mm3 Absolute Nucleated RBC 0.000 (0.0-0.012) K/mm3 Nucleated RBC % 0.0 (0.0-0.2) % Sodium 142 (137-145) mmol/L Potassium 4.1 (3.4-5.0) mmol/L Chloride 102 (98-107) mmol/L Carbon Dioxide 15 L (22-30) mmol/L Anion Gap 25 H (4-12) mmol/L BUN 21 H (7-17) mg/dL Creatinine 0.71 (0.7-1.0) mg/dL Estim Creat Clear Calc 54 ml/min Estimated GFR > 60 (59 - ) Glucose 80 (65-110) mg/dL POC Capillary Glucose 88 (65-105) mg/dl Calcium 9.4 (8.4-10.2) mg/dL Magnesium 1.8 (1.6-2.3) mg/dL Total Bilirubin 0.4 (0.2-1.3) mg/dL AST 46 H (14-36) U/L ALT 41 H (6-35) U/L Alkaline Phosphatase 150 H (38-126) U/L Total Protein 8.0 (6.3-8.2) g/dL Albumin 5.1 (3.5-5.1) g/dL Lipase 88 (23-300) U/L Urine Color Yellow (Yellow) Urine Appearance Cloudy H (Clear) Urine pH 5.0 (5.0-9.0) Ur Specific [place] 1.019 (1.001-1.035) Urine Protein 2+ H (Negative) mg/dL Urine Glucose (UA) Negative (Negative) mg/dL Urine Ketones 2+ H (Negative) mg/dL Ur Blood (Man) Trace (Negative) Urine Nitrate Negative (Negative) Urine Bilirubin Negative (Negative) Urine Urobilinogen 0.2 (<2.0) mg/dL Add Ur Microanalysis Reviewed Leukocyte Esterase Rfl Trace H (Negative) AICHA/UL Urine RBC 0-2 (0-2) /hpf Urine WBC 11-20 H (0-3) /hpf Ur Squamous Epith Cells None seen (Few) /hpf Urine Bacteria 4+ H /hpf Urine Casts 11-20 Hyaline Casts Present (None) /lpf Urine Opiates Screen Negative (Negative) Urine Methadone Screen Negative (Negative) Ur Barbiturates Screen Negative (Negative) Ur Phencyclidine Scrn Negative (Negative) Ur Amphetamine Screen Negative (Negative) U Benzodiazepines Scrn Negative (Negative) Urine Cocaine Screen Negative (Negative) U Cannabinoids Screen Negative (Negative) Ethyl Alcohol 84 (<10) mg/dL <Melquiades Barahona III, DO - Last Filed: 06/09/24 17:28> Discharge Plan Discharge Clinical Impression: Acute nausea with nonbilious vomiting, Alcohol use disorder, Acute dehydration, Tachycardia <Violet Cagle MD - Last Filed: 06/09/24 18:59> Patient Disposition: Home <Violet Cagle MD - Last Filed: 06/09/24 18:59> Condition: Improved <Violet Cagle MD - Last Filed: 06/09/24 18:59> Instructions: Antibiotic Form, Dehydration (ED), Abuse of Alcohol (DC), Acute Nausea and Vomiting (ED) <Violet Cagle MD - Last Filed: 06/09/24 18:59> Additional Instructions: Please follow-up with your family doctor within the next 3-5 days. Return to the emergency department if any new or worsening symptoms develop. You encouraged to decrease her alcohol intake as this could be be precipitating your symptoms. <Violet Cagle MD - Last Filed: 06/09/24 18:59> Patient Language: [place]an <Violet Cagle MD - Last Filed: 06/09/24 18:59> Prescriptions: No Action lorazepam 0.5 mg tablet 0.5 mg PO DAILY PRN (Reason: Anxiety) metoprolol succinate 50 mg tablet extended release 24 hr 150 mg PO DAILY ascorbic acid (vitamin C) [Vitamin C] 1,000 mg Tablet 1 g PO DAILY acetaminophen [Tylenol] 325 mg Capsule 325 mg PO ONCE PRN (Reason: Pain) cholecalciferol (vitamin D3) 25 mcg (1,000 unit) Tablet,Chewable 25 mcg PO DAILY magnesium 250 mg Tablet 250 mg PO DAILY diphenoxylate-atropine [Lomotil] 2.5-0.025 mg Tablet 1 tablet PO TID <Violet Cagle MD - Last Filed: 06/09/24 18:59> Follow-up/Referrals: Gris,RYAN Colby [Primary Care Provider] - 3 Days <Violet Cagle MD - Last Filed: 06/09/24 18:59> Time of Disposition: 04:14 <Violet Cagle MD - Last Filed: 06/09/24 18:59> 04:14 <Melquiades Barahona III, DO - Last Filed: 06/09/24 17:28>
[2024-06-09] MEDS: LORazepam INJ (*CRX) 2 MG/ML VIAL 0.5 MG IV PUSH (04:15)
[2024-06-09] MEDS: FAMOTIDINE 20 MG/2 ML VIAL IV PUSH (04:18)
--- NOTE | 2024-06-09 07:42 | ECG_ITS ---
Test Date: 2024-06-09 07:46:59 Measurements Intervals [place] Rate: 96 P: 45 NH: 120 QRS: -29 QRSD: 115 T: 71 QT: 352 QTc: 447 Interpretive Statements SINUS RHYTHM BORDERLINE LEFT AXIS DEVIATION [QRS AXIS < -20] INCOMPLETE RIGHT BUNDLE BRANCH BLOCK [90+ ms QRS DURATION, TERMINAL R IN V1/V2, 40+ ms S IN I/aVL/V4/V5/V6] NONSPECIFIC T-WAVE ABNORMALITY Compared to ECG 06/09/2024 02:51:58 Incomplete right bundle-branch block now present T-wave abnormality now present Electronically Signed On 06-09-2024 19:08:47 CDT by Jannie Wilson
[2024-06-09] MEDS: LORazepam INJ (*CRX) 2 MG/ML VIAL 1 MG IV PUSH (08:08)
[2024-06-09 08:16] VITALS: BP 156/89; PULSE 93; RESP 18; TEMP 36.4; O2SAT 96
--- NOTE | 2024-06-09 08:21 | PC.NURSE ---
RN called [employer] spoke to Gena. Informed of internet down unsure if intregration went thru. In addition Dr. Barahona would like community health representative from [employer] to come to evaluate pt. Gena sending page to [employer] rep
--- NOTE | 2024-06-09 08:24 | PC.NURSE ---
0739: Pt environmental monitoring specialist displaying SVT. Dr. Barahona informed.
--- NOTE | 2024-06-09 08:29 | PC.NURSE ---
Zev [employer] Resp called is able to get to the hospital [address] Barahona & ED drying room operator informed
[2024-06-09] MEDS: ACETAMINOPHEN 500 MG TABLET 1000 MG PO (10:50)
[2024-06-09 11:33] VITALS: BP 152/75; PULSE 102; RESP 16; TEMP 36.8; O2SAT 100
--- NOTE | 2024-06-09 11:35 | PC.NURSE ---
0930: Zev with [employer] assessed pt device. States product working correctly, pt did have an episode of tachycardia that has resolved. Zev spoke with Dr. Barahona
== END 2024-06-09 11:33 | disposition home or self-care (01) ==
PROVIDERS: Emergency Medicine; Emergency Provider Emergency Medicine; PCP Physician Assistant
DX: R00.0 Tachycardia, unspecified (principal); R11.2 Nausea with vomiting, unspecified; E86.0 Dehydration; F10.20 Alcohol dependence, uncomplicated; Y90.4 Blood alcohol level of 80-99 mg/100 ml; I49.8 Other specified cardiac arrhythmias; M19.042 Primary osteoarthritis, left hand; M19.041 Primary osteoarthritis, right hand; F41.9 Anxiety disorder, unspecified; F32.A Depression, unspecified; Z95.810 Presence of automatic (implantable) cardiac defibrillator; Z85.828 Personal history of other malignant neoplasm of skin; Z90.49 Acquired absence of other specified parts of digestive tract; Z87.891 Personal history of nicotine dependence; I45.10 Unspecified right bundle-branch block; R94.31 Abnormal electrocardiogram [ECG] [EKG]
CPT/HCPCS: 36415; 80053; 80307; 81001; 82077; 82948; 83690; 83735; 85025; 87077; 87086; 87186; 93005; 96361; 96374; 96375; 96376; 99284; A9270; J2060; J2405; J7030

== ENCOUNTER 2024-06-25 11:04 | Emergency (ER) | payer MEDICARE, SELFPAY ==
[2024-06-25] VITALS (8 sets, daily range): BP systolic 135–176; BP diastolic 76–97; PULSE 65–100; RESP 16–20; TEMP 36.7; O2SAT 97–100
--- NOTE | ~2024-06-25 | XR_ITS ---
Portable chest x-ray Comparison: 11/02/2023 Clinical History: Arrhythmia Findings: Lungs are clear, without focal consolidation or pleural effusion. Cardiomediastinal silho uette is stable, with pacemaker device. Bones and soft tissues are unremarkable, aside from prior rig ht clavicular ORIF. Impression: Clear lungs. Reviewed, dictated and finalized at location . Impression: Clear lungs.
--- NOTE | 2024-06-25 11:20 | ECG_ITS ---
Test Date: 2024-06-25 11:27:38 Measurements Intervals [place] Rate: 81 P: 59 ID: [id number] QRS: -36 QRSD: 120 T: 73 QT: 358 QTc: 416 Interpretive Statements SINUS RHYTHM LEFT AXIS DEVIATION [QRS AXIS < -30] MODERATE INTRAVENTRICULAR CONDUCTION DELAY [110+ ms QRS DURATION] ARTIFACT LIMITS INTERPRETATION ABNORMAL ECG Compared to ECG 06/09/2024 07:46:59 Intraventricular conduction delay now present Incomplete right bundle-branch block no longer present T-wave abnormality no longer present Electronically Signed On 06-25-2024 13:32:42 CDT by Antoine Kenney M.D.
--- NOTE | 2024-06-25 11:21 | ED_ITS ---
HPI - General Adult General Chief complaint: Unspecified Stated complaint: firing defib Time Seen by Provider: 06/25/24 11:11 History of Present Illness HPI narrative: Patient is a 73-year-old female who presents ER with reports of her defibrillator firing x2 in the last hour. History approved out of. No chest pain. Reports she did drink alcohol last night and she had been drinking alcohol before last time it fired earlier this week. She did not contact her gold wheel blocker and polisher like she was instructed. Reports she has had approximately 50 firings in last 15 years. She reports her medications are never adjusted. She has no chest pain. She reports anxiety and would like anxiety medication. Reports feeling off this morning and has been having nausea. Related Data Home Medications Medication Instructions Recorded Confirmed Last Taken Type metoprolol succinate 50 mg 150 mg PO DAILY 01/08/19 02/19/23 02/19/23 06:00 History tablet,extended release 24 hr acetaminophen 325 mg capsule 325 mg PO ONCE PRN Pain 04/12/19 02/19/23 02/18/23 History (Tylenol) ascorbic acid (vitamin C) 1,000 mg 1 g PO DAILY 04/12/19 02/19/23 02/16/23 History tablet (Vitamin C) cholecalciferol (vitamin D3) 25 25 mcg PO DAILY 04/18/19 02/19/23 02/16/23 History mcg (1,000 unit) chewable tablet lorazepam 0.5 mg tablet 0.5 mg PO DAILY PRN Anxiety 05/29/21 02/19/23 02/16/23 History diphenoxylate-atropine 2.5 1 tablet PO TID 02/16/23 02/19/23 02/19/23 06:00 History mg-0.025 mg tablet (Lomotil) magnesium 250 mg tablet 250 mg PO DAILY 02/16/23 02/19/23 02/16/23 History Allergies Allergy/AdvReac Type Severity Reaction Status Date / Time No Known Allergies Allergy Verified 04/07/24 18:41 Review of Systems 2 Review of Systems: All systems reviewed & are unremarkable except as noted in HPI and below Constitutional: Constitutional: Reports no additional constitutional complaints Cardiovascular: Cardiovascular: Reports no additional cardiovascular complaints Respiratory: Respiratory: Reports no additional respiratory complaints Gastrointestinal: Gastrointestinal: Reports no additional gastrointestinal complaints Musculoskeletal: Musculoskeletal: Reports no additional musculoskeletal complaints [facility] Past Medical History Medical History Arthritis of both hands Diverticulosis Skin cancer History of basal cell carcinoma of the face. Anxiety Depression Arthritis Cardiac defibrillator in place Generator replaced within the past 2 years. Brugada syndrome Status post ICD insertion. She is a patient of Drs. Garza and Cruz at [facility]. Surgical History Surgical History History of bowel resection small bowel resection 01/16/19 History of colonoscopy findings of diverticulosis History of dilation and curettage History of surgery on wrist bilateral anchovy type CMC arthroplasty History of breast augmentation History of abdominoplasty H/O shoulder surgery Right shoulder. History of appendectomy At the age of 9. Family History Family History Father Carcinoma of colon Alcoholism Grandparent Alcoholism Cancer Depression Social History Social History Social History: The patient lives in [place]. She lived is originally from [place] and lived in [place] moving here in September [place] to be closer to her grandchildren. She works for the [employer]. She smoked a pack of cigarettes per day for many years, but quit several years ago. She has a long history of alcoholism but has abstained for several years. She denies drug use. Primary care provider is TYREE Nicolas. She designates her daughter and son, Jennie Springer, as her surrogate decision makers and she wishes to be a full code. 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 HEAD: Normocephalic, atraumatic. ENT: Mucous membranes moist. NECK: Supple. CHEST: Clear to auscultation. No respiratory distress. HEART: Regular rate and rhythm. Normal peripheral pulses. ABDOMEN: Soft, nontender, nondistended. EXTREMITIES: Normal range of motion. No edema. SKIN: Warm, dry, no rash. NEURO: Alert and oriented x3. PSYCH: Normal mood and affect. Course Course Emergency Course: Patient's AICD was interrogated. Received a phone call from the company [employer] who reports she was in 1 1 atrial flutter for 260 beats per minute and received 3 shocks. The paper report that came over shows that she received 2 shocks for ventricular fib/attack, and 1 episode of antitachycardia pacing. Contacted [facility] to speak with the EP. The transfer line contacted cargo mate who recommends patient be transferred since she has received 3 shocks today and had shocks earlier in the week. Patient accepted by Dr. Diaz with the hospitalist. I have given the patient metoprolol 50 mg extended release which is her home dose and she has not yet taken it today. She has received some anxiety medication. Vital Signs Vital signs: Vital Signs Temperature 98.0 F 06/25/24 11:09 Pulse Rate 88 06/25/24 11:09 Respiratory Rate 20 06/25/24 11:09 Blood Pressure 169/91 H 06/25/24 11:09 Pulse Oximetry 100 06/25/24 11:09 Oxygen Delivery Room Air 06/25/24 11:09 Temperature 98.0 F 06/25/24 11:09 Pulse Rate 68 06/25/24 19:03 Respiratory Rate 18 06/25/24 19:03 Blood Pressure 153/76 H 06/25/24 19:03 Pulse Oximetry 98 06/25/24 19:03 Oxygen Delivery Room Air 06/25/24 11:09 Medical Decision Making Vital Signs Vital Signs: Vital Signs Temperature 98.0 F 06/25/24 11:09 Pulse Rate 88 06/25/24 11:09 Respiratory Rate 20 06/25/24 11:09 Blood Pressure 169/91 H 06/25/24 11:09 Pulse Oximetry 100 06/25/24 11:09 Oxygen Delivery Room Air 06/25/24 11:09 Temperature 98.0 F 06/25/24 11:09 Pulse Rate 68 06/25/24 19:03 Respiratory Rate 18 06/25/24 19:03 Blood Pressure 153/76 H 06/25/24 19:03 Pulse Oximetry 98 06/25/24 19:03 Oxygen Delivery Room Air 06/25/24 11:09 Lab Data 06/25/24 11:23 06/25/24 11:23 Labs: Lab Results 06/25/24 06/25/24 06/25/24 Range/Units 11:23 11:25 12:10 WBC 7.9 (4.5-10.0) K/mm3 RBC 3.82 L (4.2-5.4) M/mm3 Hgb 12.7 (12.0-15.0) g/dL Hct 37.4 (37.0-47.0) % MCV 97.9 (80-100) fl MCH 33.2 (26-34) pg MCHC 34.0 (32-36) g/dl RDW 14.6 H (11.5-14.5) % Plt Count 280 (150-375) k/mm3 MPV 8.9 (7.4-10.4) fl Immature Gran % (Auto) 0.4 (0-0.5) % Neut % (Auto) 79.8 H (45.5-73.1) % Lymph % (Auto) 13.9 L (18.3-44.2) % [place] % (Auto) 5.2 (2.6-8.5) % Eos % (Auto) 0.1 (0-4.4) % Baso % (Auto) 0.6 (0.2-1.2) % Lymph # (Auto) 1.10 (0.9-3.2) K/mm3 [place] # (Auto) 0.4 (0.1-0.6) K/mm3 Eos # (Auto) 0.0 (0-0.3) K/mm3 Baso # (Auto) 0.1 (0.0-0.1) K/mm3 Abs Immat Gran (auto) 0.03 (0.00-0.031) K/mm3 Absolute Neuts (auto) 6.3 (1.3-6.7) K/mm3 Absolute Nucleated RBC 0.000 (0.0-0.012) K/mm3 Nucleated RBC % 0.0 (0.0-0.2) % PT 11.8 (11.1-14.7) Seconds INR 0.8 APTT 26.2 (22.3-36.8) Seconds Sodium 139 (137-145) mmol/L Potassium 4.1 (3.4-5.0) mmol/L Chloride 102 (98-107) mmol/L Carbon Dioxide 22 (22-30) mmol/L Anion Gap 15 H (4-12) mmol/L BUN 21 H (7-17) mg/dL Creatinine 0.72 (0.7-1.0) mg/dL Estim Creat Clear Calc 47 ml/min Estimated GFR > 60 (59 - ) Glucose 108 (65-110) mg/dL Calcium 9.8 (8.4-10.2) mg/dL Magnesium 1.6 (1.6-2.3) mg/dL Total Bilirubin 0.5 (0.2-1.3) mg/dL AST 56 H (14-36) U/L ALT 43 H (6-35) U/L Alkaline Phosphatase 163 H (38-126) U/L Troponin I < 0.012 (0.000-0.034) ng/mL NT-Pro-B Natriuret Pep 123 H (19.9-100) pg/mL Total Protein 8.0 (6.3-8.2) g/dL Albumin 4.8 (3.5-5.1) g/dL Urine Opiates Screen Negative (Negative) Urine Methadone Screen Negative (Negative) Ur Barbiturates Screen Negative (Negative) Ur Phencyclidine Scrn Negative (Negative) Ur Amphetamine Screen Negative (Negative) U Benzodiazepines Scrn Negative (Negative) Urine Cocaine Screen Negative (Negative) U Cannabinoids Screen Negative (Negative) Ethyl Alcohol < 10 (<10) mg/dL Imaging Data Radiologist's impression: ITS Impressions Chest X-Ray 06/25/24 12:26 Impression: Clear lungs. ECG Data EKG #1: ECG completion date: 06/25/24 ECG completion time: 11:27 EKG Interpretation: normal rate (81), sinus rhythm, non-specific ST changes, widened QRS, normal QT and left axis Discharge Plan Discharge Clinical Impression: Defibrillator discharge, Brugada syndrome Patient Disposition: Acute Care Hospital Condition: Stable Patient Language: Italian Prescriptions: No Action lorazepam 0.5 mg tablet 0.5 mg PO DAILY PRN (Reason: Anxiety) metoprolol succinate 50 mg tablet extended release 24 hr 150 mg PO DAILY ascorbic acid (vitamin C) [Vitamin C] 1,000 mg Tablet 1 g PO DAILY acetaminophen [Tylenol] 325 mg Capsule 325 mg PO ONCE PRN (Reason: Pain) cholecalciferol (vitamin D3) 25 mcg (1,000 unit) Tablet,Chewable 25 mcg PO DAILY magnesium 250 mg Tablet 250 mg PO DAILY diphenoxylate-atropine [Lomotil] 2.5-0.025 mg Tablet 1 tablet PO TID Follow-up/Referrals: Gris,RYAN Colby [Primary Care Provider] -
[2024-06-25] MEDS: ALPRAZolam (*CRX) 0.5 MG TABLET PO (11:25)
--- OUTSIDE RECORDS SUMMARY | 2024-06-25 11:29 | XMS_ITS | Clinical Summary ---
Author Organization [facility] Address [address] [facility] [facility] [address] [address] Attn: Epic Prelude ADT [place]INA MARTINEZ [id number] Care Team Providers Care Community Service Director Name Role Phone Unavailable Primary Care Provider Unavailabl e Allergies No known active allergies Medications acetaminophen- codeine (TYLENOL #3) 300-30 mg tablet Take 1 Tablet by mouth every 8 hours as needed. 15 Tablet 08/18/2021 6:53 PM CDT 2 Active moxifloxacin (Vigamox) 0.5 % solution INSTILL 1 DROP INTO AFFECTED EYE(S) BY OPHTHALMIC ROUTE 3 TIMES PER DAY 3 mL 02/16/2022 10:[address] IN TELLER 3 Active metoprolol succinate (TOPROL XL) 100 [...] for nausea. 30 Tablet 02/05/2023 12:[address] IN TELLER 3 Active HYDROcodone-ac etaminophen (NORCO) 5-325 mg tablet Take 1 Tablet by mouth every 6 hours as needed for pain 30 Tablet 02/05/2023 12:[address] IN TELLER 3 Active LORazepam (ATIVAN) 0.5 mg tablet Take 1 Tablet (0.5 mg) by mouth 3 times daily as needed. 90 Tablet 04/02/2023 3:[address] IN TELLER 4 Active nitrofurantoin (Macrobid) 100 mg capsule [...] daily. 60 Tablet 11 03/24/2024 2:[address] IN TELLER 4 02/01/20 25 Active LORazepam (ATIVAN) 0.5 mg tablet Take 1 Tablet (0.5 mg) by mouth 3 times daily as needed. 90 Tablet 01/28/2024 3:[address] IN TELLER 4 Active ofloxacin (OCUFLOX) 0.3 % solution INSTILL ONE DROP INTO BOTH EYES NEEDED 5 mL 03/09/2024 3:[address] IN TELLER 5 Active LORazepam (ATIVAN) 0.5 mg tablet Take 1 Tablet (0.5 mg) by mouth 3 times daily as needed. 90 Tablet 03/25/2024 11:[address] IN TELLER 5 Active LORazepam (ATIVAN) 0.5 mg tablet Take 1 Tablet (0.5 mg) by mouth 3 times daily as needed. 90 Tablet 06/09/2024 2:03 PM CDT 5 Active diphenoxylate- atropine 2.5 mg-0.025 mg tablet Take 1 Tablet by mouth 3 times daily as needed. 90 Tablet 06/15/2024 10:31 AM CDT 5 Active LORazepam (ATIVAN) 0.5 mg tablet Take 1 Tablet (0.5 mg) by mouth 3 times daily as needed. 90 Tablet 05/12/2024 3:30 PM CDT 5 06/08/19 25 Discontinu ed(Reorder ) diphenoxylate- atropine 2.5 mg-0.025 mg tablet Take 1 Tablet by mouth 3 times daily as needed. 90 Tablet 05/12/2024 3:30 PM CDT 5 06/15/19 25 Discontinu ed(Reorder ) Immunizations Immunization Administration [...] Name:Lynn Rizzo Payer ID:Not on file Group ID:[id number] Type:RX Medicare Part D Address: CRISTINA MARTINEZ [employer] (INTERNAL) [facility] [employer] [facility]
--- OUTSIDE RECORDS SUMMARY | 2024-06-25 11:29 | XMS_ITS | Continuity of Care Document ---
Author Organization [facility] Address [address] [place] [address] Phone Care Team Providers Care Pigs Feet Cleaner Name Role Phone Scar Kumar MD Unavailable Unavailable Allergies, Adverse Reactions, Alerts Substance Reaction Status Criticality No Known Drug Allergies Active No I nformation Medications Medication Instructions Dosage Effective Dates (start - stop) Status Comments Efudex 5 % Topical Cream apply by topical route 2 times every day a sufficient amount to cover the lesions in the affected area(s) 0.00 - Active Solaraze 3 % Topical Gel apply by topical route 2 times every day to lesion areas - Active CLOBEX 0.05 % Topical [place] apply by topical route 2 times every day to the affected area(s) ; rub in gently and completely 0.00 - Active Topicort 0.25 % Topical Cream apply by topical route 2 times every day to the affected area(s) - Active GARAMYCIN 0.3 %DROPS Apply two drops to affected eye(s) four times per day - Active Zithromax 250 mg Tab Z-Александр - Activ e Phenergan VC-Codeine 5 mg-6.25 mg-10 mg/5 mL Syrup 10cc q 8 hours prn - Active Procedures Procedure Date Offic/outpt E&m Estab Low-mod 3 Offic/outpt E&m Estab Low-mod 2 Offic/outpt E&m Estab Low-mod 1 Offic/outpt E&m Estab Minor 10 07 Advance Directives Directive Yes / No Effective Date File Name No Information Encounters Encounter Description Practice Location Reason(s) For Visit Diagnoses Date Provider Providers Copied on Encounter [facility], [address] [place] [address], [id number], tel:[phone] [facility] No Information José Abbott. [address] [place] [address], [id number], . tel:[phone] Offic/outpt E&m Estab Low-mod [facility], [address] [place] [address], [id number], tel:[phone] [facility] growth (chief complaint)g kanwal (chief complaint) Unc Behav Justin SkinUnc Behav Justin SkinChr Solar Dermatitis Nec José Abbott. [address] [place] [address], [id number], . tel:[phone] [facility], [address] [place] [address], [id number], tel:[phone] [facility] No Information José Abbott. [address] [place] [address], [id number], [place]. tel:[phone] Offic/outpt E&m Estab Lowmod [facility], [address] [place] [address], [id number], tel:[phone] [facility] No Information José Abbott. [address] [place] [address], [id number], [place]. tel:[phone] [facility], [address] [place] [address], [id number], tel:[phone] [facility] No Information José Abbott. [address] [place] [address], [id number], . tel:[phone] Offic/outpt E&m Estab Lowmod [facility], [address] [place] [address], [id number], tel:[phone] [facility] No Information José Abbott. [address] [place] [address], [id number], [place]. tel:[phone] Offic/outpt E&m Estab Minor 10 [facility], [address] [place] [address], [id number], tel:[phone] [facility] diarrhea (chief complaint) No Information Kaitlin Daugherty. [address] [place] [address], [id number], [place]. tel:[phone] [facility], [address] [place] [address], [id number], tel:[phone] [facility] No Information Franklynlauri Dat. [address] [place] [address], [id number], . tel:[phone] [facility], [address] [place] [address], [id number], tel:[phone] [facility] No Information Franklynlauri Dat. [address] [place] [address], [id number], [place]. tel:[phone] Family History Family Member Type Diagnosis Age At Onset No Information Payers Payer name Insurance type Covered democrat ID Authoraliciaa paolomehdi(s) [employer] Non HMO Specialty CI [id number] [facility] Insurance Company CI [id number] Social History Type Description Quantity Date Captured [...]
--- OUTSIDE RECORDS SUMMARY | 2024-06-25 11:29 | XMS_ITS | Data Portability ---
Author Organization [place] - [facility], Main Office Address [address] [place] [address] Assessment No assessment recorded. Plan of Treatment Reminders Order Date Submit Date Provider Last Modified By Organization Details Last Modified Time Details Appointments None recorded. Lab CBC w/ auto diff 2022 023 [facility], [address] [place] [address], [id number], 3 10:03:20 BMP, serum or plasma 2022 023 [facility], [address] [place] [address], [id number], 3 10:03:21 hepatic function panel, serum 2022 023 [facility], [address] [place] [address], [address], 3 10:03:21 TSH + free T4, serum 2022 023 [facility], [address] [place] [address], [address], 3 10:03:20 lipid panel, serum 2022 023 [facility], [address] [place] [address], [address], 3 10:03:21 Referral None recorded. Procedures None recorded. Surgeries None recorded. Imaging None recorded. Medication Orders diphenoxyl ate-atropi ne 2.5 mg-0.025 mg tablet 2022 023 [facility] j[facility]esea [place], [address] [facility] , [place], [place], [id number], 10:00:54 Patient TargetsNo targets recorded. Patient InstructionsNo instructions recorded. Reason for Referral None Reported. Results Created Date Observation Date Name Description Value Unit Range Abnormal Flag Note LastModifiedBy Organization Detail LastModifiedTime 02/26/19 22 02/27/2021 URINE CULTU RE, SILVERIO NE urine culture, routine final report Not Available [facility] ([facility]) [address] [place], [address], 02/28/2021 03:07:50 02/26/19 22 02/27/2021 URINE CULTU RE, SILVERIO NE result 1 commen t Mixed uroge nital hero Less than 10,00 0 colon ies/m L Not Available [facility] ([facility]) [address] [place], [address], 02/28/2021 03:07:50 02/26/19 22 02/27/2021 LUCIA+L IPASE amylase 105 U/L 31-110 Not Available [facility] ([facility]) [address] [place], [address], 02/28/2021 03:07:50 02/26/19 22 02/27/2021 LUCIA+L IPASE lipase 58 U/L 14-72 Not Available [facility] ([facility]) [address] [place], [address], 02/28/2021 03:07:50 02/26/19 22 02/27/2021 HEPAT IC FUNCT ION PANEL (7) protein, total 7.4 g/dL 6.0-8. 5 Not Available [facility] ([facility]) [address] [place], [address], 02/28/2021 03:07:50 02/26/19 22 02/27/2021 HEPAT IC FUNCT ION PANEL (7) albumin 4.7 g/dL 3.8-4. 8 Not Available [facility] ([facility]) [address] [facility] [place], [address], 02/28/2021 03:07:50 02/26/19 22 02/27/2021 HEPAT IC FUNCT ION PANEL (7) bilirubin, total 0.4 mg/dL 0.0-1. 2 Not Available [facility] ([facility]) [address] [place], [address], 02/28/2021 03:07:50 02/26/19 22 02/27/2021 HEPAT IC FUNCT ION PANEL (7) bilirubin, direct 0.12 mg/dL 0.00-0 .40 Not Available [facility] ([facility]) [address] [facility] [place], [address], 02/28/2021 03:07:50 02/26/19 22 02/27/2021 HEPAT IC FUNCT ION PANEL (7) alkaline phosphatase 105 IU/L 44-121 Not Available [facility] [address] [place], [address], 02/28/2021 03:07:50 02/26/19 22 02/27/2021 HEPAT IC FUNCT ION PANEL (7) AST (SGOT) 21 IU/L 0-40 Not Available [facility] ([facility]) [address] [place], [address], 02/28/2021 03:07:50 02/26/19 22 02/27/2021 HEPAT IC FUNCT ION PANEL (7) ALT (SGPT) 21 IU/L 0-32 Not Available [facility] ([facility]) [address] [place], [address], 02/28/2021 03:07:50 02/26/19 22 02/27/2021 BASIC METAB OLIC PANEL (8) glucose 94 mg/dL 65-99 Not Available [facility] ([facility]) [address] [facility], [place], [address], 02/28/2021 03:07:49 02/26/19 22 02/27/2021 BASIC METAB OLIC PANEL (8) BUN 15 mg/dL 8-27 Not Available [facility] ([facility]) [address] [place], [address], 02/28/2021 03:07:49 02/26/19 22 02/27/2021 BASIC METAB OLIC PANEL (8) creatinine 0.77 mg/dL 0.57-1 .00 Not Available [facility] ([facility]) [address] [place], [address], 02/28/2021 03:07:49 02/26/19 22 02/27/2021 BASIC METAB OLIC PANEL (8) eGFR if nonafricn AM 80 mL/mi n/1.7 3 >59 Not Available [facility] ([facility]) [address] [facility], [place], [address], 02/28/2021 03:07:49 02/26/19 22 02/27/2021 BASIC METAB [...] a race varia ble. Not Available [facility] ([facility]) [address] [facility], [place], [address], 02/28/2021 03:07:49 02/26/19 22 02/27/2021 BASIC METAB OLIC PANEL (8) BUN/creatini ne ratio 26 01-28 Not Available [facility] ([facility]) [address] [place], [address], 02/28/2021 03:07:49 02/26/19 22 02/27/2021 BASIC METAB OLIC PANEL (8) sodium 137 mmol/ L 134-14 4 Not Available [facility] ([facility]) [address] [place], [address], 02/28/2021 03:07:49 02/26/19 22 02/27/2021 BASIC METAB OLIC PANEL (8) potassium 4.2 mmol/ L 3.5-5. 2 Not Available [facility] ([facility]) [address] [place], [address], 02/28/2021 03:07:49 02/26/19 22 02/27/2021 BASIC METAB OLIC PANEL (8) chloride 98 mmol/ L 96-106 Not Available [facility] ([facility]) [address] [place], [address], 02/28/2021 03:07:49 02/26/19 22 02/27/2021 BASIC METAB OLIC PANEL (8) carbon dioxide, total 24 mmol/ L 20-29 Not Available [facility] ([facility]) [address] [place], [address], 02/28/2021 03:07:49 02/26/19 22 02/27/2021 BASIC METAB OLIC PANEL (8) calcium 9.6 mg/dL 8.7-10 .3 Not Available [facility] ([facility]) [address] [place], [address], 02/28/2021 03:07:49 02/26/19 22 02/27/2021 URINA LYSIS , ROUTI NE specific gravity 1.008 1.005- 1.030 Not Available [facility] ([facility]) [address] [place], [address], 02/28/2021 03:07:49 02/26/19 22 02/27/2021 URINA LYSIS , ROUTI NE pH 6.5 5.0-7. 5 Not Available [facility] ([facility]) [address] [facility], [place], [address], 02/28/2021 03:07:49 02/26/19 22 02/27/2021 URINA LYSIS , ROUTI NE urine-color yellow yellow Not Available [facility] ([facility]) [address] [facility], [place], [address], 02/28/2021 03:07:49 02/26/19 22 02/27/2021 URINA LYSIS , ROUTI NE appearance clear clear Not Available [facility] ([facility]) [address] [place], [address], 02/28/2021 03:07:49 02/26/19 22 02/27/2021 URINA LYSIS , ROUTI NE WBC esterase negati ve negati ve Not Available [facility] ([facility]) [address] [place], [address], 02/28/2021 03:07:49 02/26/19 22 02/27/2021 URINA LYSIS , ROUTI NE protein negati ve negati ve/tra ce Not Available [facility] ([facility]) [address] [place], [address], 02/28/2021 03:07:49 02/26/19 22 02/27/2021 URINA LYSIS , ROUTI NE glucose negati ve negati ve Not Available [facility] ([facility]) [address] [place], [address], 02/28/2021 03:07:49 02/26/19 22 02/27/2021 URINA LYSIS , ROUTI NE ketones negati ve negati ve Not Available [facility] ([facility]) [address] [place], [address], 02/28/2021 03:07:49 02/26/19 22 02/27/2021 URINA LYSIS , ROUTI NE occult blood negati ve negati ve Not Available [facility] ([facility]) [address] [place], [address], 02/28/2021 03:07:49 02/26/19 22 02/27/2021 URINA LYSIS , ROUTI NE bilirubin negati ve negati ve Not Available [facility] ([facility]) [address] [facility], [place], [address], 02/28/2021 03:07:49 02/26/19 22 02/27/2021 URINA LYSIS , ROUTI NE urobilinogen ,semi-qn 0.2 mg/dL 0.2-1. 0 Not Available [facility] ([facility]) [address] [facility], [place], [address], 02/28/2021 03:07:49 02/26/19 22 02/27/2021 URINA LYSIS , ROUTI NE nitrite, urine negati ve negati ve Not Available [facility] ([facility]) [address] [place], [address], 02/28/2021 03:07:49 02/26/19 22 02/27/2021 URINA LYSIS , ROUTI NE microscopic examination commen t Micro scopi c not indic ated and not perfo rmed. Not Available [facility] ([facility]) [address] [place], [address], 02/28/2021 03:07:49 02/26/19 22 02/27/2021 CBC WITH DIFFE RENTI AL/PL ATELE T WBC 4.8 x10e3 /uL 3.4-10 .8 Not Available [facility] ([facility]) [address] [place], [address], 02/28/2021 03:07:48 02/26/19 22 02/27/2021 CBC WITH DIFFE RENTI AL/PL ATELE T RBC 3.82 x10e6 /uL 3.77-5 .28 Not Available [facility] ([facility]) [address] [place], [address], 02/28/2021 03:07:48 02/26/19 22 02/27/2021 CBC WITH DIFFE RENTI AL/PL ATELE T hemoglobin 12.7 g/dL 11.1-1 5.9 Not Available [facility] ([facility]) [address] [place], [address], 02/28/2021 03:07:48 02/26/19 22 02/27/2021 CBC WITH DIFFE RENTI AL/PL ATELE T hematocrit 36.4 % 34.0-4 6.6 Not Available [facility] ([facility]) [address] [facility], [place], [address], 02/28/2021 03:07:48 02/26/19 22 02/27/2021 CBC WITH DIFFE RENTI AL/PL ATELE T MCV 95 fL 79-97 Not Available [facility] ([facility]) [address] [place], [address], 02/28/2021 03:07:48 02/26/19 22 02/27/2021 CBC WITH DIFFE RENTI AL/PL ATELE T MCH 33.2 pg 26.6-3 3.0 above high normal Not Available [facility] ([facility]) [address] [place], [address], 02/28/2021 03:07:48 02/26/19 22 02/27/2021 CBC WITH DIFFE RENTI AL/PL ATELE T MCHC 34.9 g/dL 31.5-3 5.7 Not Available [facility] ([facility]) [address] [place], [address], 02/28/2021 03:07:48 02/26/19 22 02/27/2021 CBC WITH DIFFE RENTI AL/PL ATELE T RDW 13.0 % 11.7-1 5.4 Not Available [facility] ([facility]) [address] [facility], [place], [address], 02/28/2021 03:07:48 02/26/19 22 02/27/2021 CBC WITH DIFFE RENTI AL/PL ATELE T platelets 275 x10e3 /uL 150-45 0 Not Available [facility] ([facility]) [address] [facility], [place], [address], 02/28/2021 03:07:48 02/26/19 22 02/27/2021 CBC WITH DIFFE RENTI AL/PL ATELE T neutrophils 51 % not estab. Not Available [facility] ([facility]) [address] [facility], [place], [address], 02/28/2021 03:07:48 02/26/19 22 02/27/2021 CBC WITH DIFFE RENTI AL/PL ATELE T lymphs 35 % not estab. Not Available [facility] ([facility]) [address] [facility], [place], [address], 02/28/2021 03:07:48 02/26/19 22 02/27/2021 CBC WITH DIFFE RENTI AL/PL ATELE T monocytes 12 % not estab. Not Available [facility] ([facility]) [address] [facility], [place], [address], 02/28/2021 03:07:48 02/26/19 22 02/27/2021 CBC WITH DIFFE RENTI AL/PL ATELE T eos 1 % not estab. Not Available [facility] ([facility]) [address] [facility], [place], [address], 02/28/2021 03:07:48 02/26/19 22 02/27/2021 CBC WITH DIFFE RENTI AL/PL ATELE T basos 1 % not estab. Not Available [facility] ([facility]) [address] [facility], [place], [address], 02/28/2021 03:07:48 02/26/19 22 02/27/2021 CBC WITH DIFFE RENTI AL/PL ATELE T immature cells brief writer Not Available [facility] ([facility]) [address] [place], [address], 02/28/2021 03:07:48 02/26/19 22 02/27/2021 CBC WITH DIFFE RENTI AL/PL ATELE T neutrophils (absolute) 2.5 x10e3 /uL 1.4-7. 0 Not Available [facility] ([facility]) [address] [place], [address], 02/28/2021 03:07:48 02/26/19 22 02/27/2021 CBC WITH DIFFE RENTI AL/PL ATELE T lymphs (absolute) 1.7 x10e3 /uL 0.7-3. 1 Not Available [facility] ([facility]) [address] [place], [address], 02/28/2021 03:07:48 02/26/19 22 02/27/2021 CBC WITH DIFFE RENTI AL/PL ATELE T monocytes(ab solute) 0.6 x10e3 /uL 0.1-0. 9 Not Available [facility] ([facility]) [address] [place], [address], 02/28/2021 03:07:48 02/26/19 22 02/27/2021 CBC WITH DIFFE RENTI AL/PL ATELE T eos (absolute) 0.0 x10e3 /uL 0.0-0. 4 Not Available [facility] ([facility]) [address] [place], [address], 02/28/2021 03:07:48 02/26/19 22 02/27/2021 CBC WITH DIFFE RENTI AL/PL ATELE T baso (absolute) 0.0 x10e3 /uL 0.0-0. 2 Not Available [facility] ([facility]) [address] [facility], [place], [address], 02/28/2021 03:07:48 02/26/19 22 02/27/2021 CBC WITH DIFFE RENTI AL/PL ATELE T immature granulocytes 0 % not estab. Not Available [facility] ([facility]) [address] [facility], [place], [address], 02/28/2021 03:07:48 02/26/19 22 02/27/2021 CBC WITH DIFFE RENTI AL/PL ATELE T immature grans (abs) 0.0 x10e3 /uL 0.0-0. 1 Not Available [facility] ([facility]) [address] [facility], [place], [address], 02/28/2021 03:07:48 02/26/19 22 02/27/2021 CBC WITH DIFFE RENTI AL/PL ATELE T NRBC brief writer Not Available [facility] ([facility]) [address] [facility], [place], [address], 02/28/2021 03:07:48 02/26/19 22 02/27/2021 CBC WITH DIFFE RENTI AL/PL ATELE T hematology comments: brief writer Not Available [facility] ([facility]) [address] [facility], [place], [address], 02/28/2021 03:07:48 02/24/19 22 02/24/2021 NM, hepat obili do scan No observ ation record ed. [id number] [facility] [address] [place] [address] [address] [facility], [place], [address], 04/08/2022 19:48:13 02/25/19 22 02/25/2021 US, singh gallagherde r No observ ation record ed. [id number] [facility] ([facility]) [address] [place] [address] [address] [facility], [place], [address], 04/08/2022 19:48:13 08/28/19 22 08/27/2021 RF, small bowel follo w-thr ough study No observ ation record ed. [id number] [facility] ([facility]) [facility] [facility] [address], [place], [address], 04/08/2022 19:48:13 09/19/19 22 08/18/2021 CT, abdom en + pelvi s, w/ contr ast No observ ation record ed. [id number] [facility] [address], [place], [address], 04/08/2022 19:48:13 02/06/20 23 02/02/2023 MAMMO , scree amaya, digit al, bilat eral No observ ation record ed. BARCODE Not Available 2022 16:31:32 Result Notes None recorded. Problems Name Problem SNOMED Code Status Onset Date Resolution Date Notes Provider Name and Address Organization Details Recorded Time Abnormal urine 298873275 Active 2021 Not Available [facility] 3 19:46:45 Irritable bowel syndrome 56089791 Active 2021 Not Available [facility] 3 19:46:45 Acquired dilation of bile duct 6892226321865 108 Active 2021 Not Available [facility] 3 19:46:45 Diverticul itis of colon 730243523 Active 2021 Not Available [facility] 3 19:46:46 Bacterial conjunctiv itis 858243476 Active 2022 Not Available [facility] 3 19:46:46 Irritable bowel syndrome with diarrhea 165085226 Active 2022 Not Available [facility] 3 19:46:46 Generalize d anxiety disorder 98022172 Active 2021 Not Available [facility] 3 19:46:46 Low back pain 746855900 Active 2021 Not Available [facility] 3 19:46:46 Diverticul ar disease of colon 579004720 Active 2021 Not Available [facility] 3 19:46:46 Compressio n fracture of lumbar spine 164524191 Active 2021 Not Available [facility] 3 19:46:46 Partial obstructio n of small bowel 983759939 Active 2021 Not Available [facility] 3 19:46:46 Anxiety 54581086 Active 2019 Not Available [facility] 3 19:46:46 Hyperlipid emia 24079363 Active 2021 Not Available [facility] 3 19:46:46 Diarrhea 41448869 Active 2021 Not Available [facility] 3 19:46:46 Upper abdominal pain 26527970 Active 2021 Not Available [facility] 3 19:46:46 Acute urinary tract infection 538094507 Active 2022 TYREE Nicolas [address] [place] [address], [facility] [address], [place], [address] , [facility] 12:45:22 Problem Notes None recorded. Procedures Surgical History Date Name Laterality Status Provider Name and Address Organization Details Recorded Time 020 colonoscopy completed Not Available [facility] 04/08/2022 19:45:52 019 Gastrointestinal Surgery completed Not Available [facility] 04/08/2022 19:45:52 016 Date of Last Colonoscopy completed Not Available [facility] 04/08/2022 19:45:51 Appendectomy completed Not Available [facility] 04/08/2022 19:45:52 Orthopedic Surgery completed Not Available [facility] 04/08/2022 19:45:52 Cardiovascular Procedure completed Not Available [facility] 04/08/2022 19:45:52 SENIOR ACCOUNTING ASSOCIATE Surgery completed Not Available [facility] 04/08/2022 19:45:52 Orthopedic Surgery completed Not Available [facility] 04/08/2022 19:45:52 Breast Implants completed Not Available [facility] 04/08/2022 19:45:52 Imaging Results Imaging Date Name Status LastModified by Organization Details LastModified Time 02/24/2021 NM, hepatobiliary scan completed [id number] [facility] [address] [facility] [address], [place], [address], 04/08/2022 19:48:13 02/25/2021 US, gallbladder completed [id number] [facility]) [address] [place] [address] [address], [place], [address], 04/08/2022 19:48:13 08/27/2021 RF, small bowel follow-through study completed [id number] [facility]) [address] [place] [address] [address] [facility], [place], [address], 04/08/2022 19:48:13 08/18/2021 CT, abdomen + pelvis, w/ contrast completed [id number] [address], [place], [address], 04/08/2022 19:48:13 02/02/2023 MAMMO, screening, digital, bilateral [...] Available Not Available Not Available Fluzone High-Dose [id number] (PF) 180 mcg/0.5 mL intramusc ular syringe [...] % 65 /min 16 /min 97.6 [degF] 84182.1 8 g 132 mm[Hg] 88 mm[Hg] Not Available [facility] 3 19:46:14 Date Recorded Body mass index (BMI) Body height Oxygen saturation Oxygen saturation in Arterial blood by Pulse oximetry Heart rate Body temperature Body weight Systolic blood pressure Diastolic blood pressure Provider Name and Address Organization Details Last Updated DateTime 3 24.1 kg/m2 160.02 cm 99 % 99 % 77 /min 97.9 [degF] 38655.5 6 g 128 mm[Hg] 90 mm[Hg] Not Available [facility] 3 19:46:14 Date Recorded Body height Provider Name an d Address Organization Details Last Updated DateTime 03/12/2021 160.02 cm Not Available [facility] 3 19:46:14 Date Recorded Body height Provider Name an d Address Organization Details Last Updated DateTime 10/17/2021 160.02 cm Not Available [facility] 3 19:46:14 Date Recorded Body height Body temperature Body mass index (BMI) Body weight Respiratory rate Oxygen saturation Oxygen saturation in Arterial blood by Pulse oximetry Heart rate Systolic blood pressure Diastolic blood pressure Provider Name and Address Organization Details Last Updated DateTime 3 160.02 cm 97.5 [degF] 24 kg/m2 02190.7 7 g 16 /min 98 % 98 % 82 /min 122 mm[Hg] 80 mm[Hg] MARTINEZ [place] [address] [facility] [facility] 3 09:25:38 Social History Question Answer Notes LastModified by Organizat ion Details LastModified Time Tobacco Smoking Status Former Smoker Not Available [facility] 04/08/2022 19:45:44 Are You Blind Or Do You Have Difficulty Seeing? Yes [id number] Information not available 04/08/2022 What Is Your Level Of Caffeine Consumption? Moderate [id number] Information not available 04/08/2022 How Much Tobacco Do You Chew? None [id number] Information not available 04/08/2022 In The 14 Days Before Symptom Onset, Have You Had Close Contact With A Laboratory-confirm ed COVID-19 While That Case Was Ill? No [id number] Information not available 04/08/2022 In The 14 Days Before Symptom Onset, Have You Had Close Contact With A Person Who Is Under Investigation For COVID-19 While That Person Was Ill? No [id number] Information not available 04/08/2022 Are You Deaf Or Do You Have Serious Difficulty Hearing? No [id number] Information not available 04/08/2022 What Type Of Diet Are You Following? REGULAR [id number] Information not available 04/08/2022 Which Illicit Or Recreational Drugs Have You Used? None [id number] Information not available 04/08/2022 Have There Been Any Changes To Your Family Or Social Situation? No [id number] Information not available 04/08/2022 Do You Use Insect Repellent Routinely? No [id number] Information not available 04/08/2022 What Is Your Relationship Status? [id number] Information not available 04/08/2022 Do You Use Your Seat Belt Or Car Seat Routinely? Yes [id number] Information not available 04/08/2022 Are You Sexually Active? No [email or web address] Information not available 09/10/2022 Do You Have Smoke And Carbon Monoxide Detectors In Your Home? Yes [id number] Information not available 04/08/2022 At What Age Did You Start Smoking Tobacco? 15 [id number] Information not available 04/08/2022 How Much Tobacco Do You Smoke? 1 PPD [id number] 1282 Information not available 04/08/2022 Do You Use Sunscreen Routinely? Yes [id number] Information not available [id number]|2024-06-25 11:21:33|2024-06-25 11:21:33|ED.[email or web address]||||"HPI - General Adult General Chief complaint: Unspecified Stated complaint: firing defib Time Seen by Provider: 06/25/24 11:11 History of Present Illness HPI narrative: Patient is a 73-year-old female who presents ER with reports of her defibrillator firing x2 in the last hour. History approved out of. No chest pain. Reports she did drink alcohol last night and she had been drinking alcohol before last time it fired earlier this week. 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 Reports she has had approximately 50 firings in last 15 years. She reports her medications are never adjusted. She has no chest pain. She reports anxiety and would like anxiety medication. Reports feeling off this morning and has been having nausea. Related Data Home Medications Medication Instructions Recorded Confirmed Last Taken Type metoprolol succinate 50 mg 150 mg PO DAILY 01/08/19 02/19/23 02/19/23 06:00 History tablet,extended release 24 hr acetaminophen 325 mg capsule 325 mg PO ONCE PRN Pain 04/12/19 02/19/23 02/18/23 History (Tylenol) ascorbic acid (vitamin C) 1,000 mg 1 g PO DAILY 04/12/19 02/19/23 02/16/23 History tablet (Vitamin C) cholecalciferol (vitamin D3) 25 25 mcg PO DAILY 04/18/19 02/19/23 02/16/23 History mcg (1,000 unit) chewable tablet lorazepam 0.5 mg tablet 0.5 mg PO DAILY PRN Anxiety 05/29/21 02/19/23 02/16/23 History diphenoxylate-atropine 2.5 1 tablet PO TID 02/16/23 02/19/23 02/19/23 06:00 History mg-0.025 mg tablet (Lomotil) magnesium 250 mg tablet 250 mg PO DAILY 02/16/23 02/19/23 02/16/23 History Allergies Allergy/AdvReac Type Severity Reaction Status Date / Time No Known Allergies Allergy Verified 04/07/24 18:41 Review of Systems Review of Systems: All systems reviewed & are unremarkable except as noted in HPI and below Constitutional: Constitutional: Reports no additional constitutional complaints Cardiovascular: Cardiovascular: Reports no additional cardiovascular complaints Respiratory: Respiratory: Reports no additional respiratory complaints Gastrointestinal: Gastrointestinal: Reports no additional gastrointestinal complaints Musculoskeletal: Musculoskeletal: Reports no additional musculoskeletal complaints [facility] Past Medical History Medical History Arthritis of both hands Diverticulosis Skin cancer History of basal cell carcinoma of the face. Anxiety Depression Arthritis Cardiac defibrillator in place Generator replaced within the past 2 years. Brugada syndrome Status post ICD insertion. She is a patient of Drs. Garza and rCuz at [facility]. Surgical History Surgical History History of bowel resection small bowel resection 01/16/19 History of colonoscopy findings of diverticulosis History of dilation and curettage History of surgery on wrist bilateral anchovy type CMC arthroplasty History of breast augmentation History of abdominoplasty H/O shoulder surgery Right shoulder. History of appendectomy At the age of 9. Family History Family History Father Carcinoma of colon Alcoholism Grandparent Alcoholism Cancer Depression Social History Social History Social History: The patient lives in [place]. She lived is originally from [place] and lived in [place] before moving here in September 2015 to be closer to her grandchildren. She works for the [employer]. She smoked a pack of cigarettes per day for many years, but quit several years ago. She has a long history of alcoholism but has abstained for several years. She denies drug use. Primary care provider is TYREE Nicolas. She designates her daughter and son, Jennie Springer, as her surrogate decision makers and she wishes to be a full code. 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 HEAD: Normocephalic, atraumatic. ENT: Mucous membranes moist. NECK: Supple. CHEST: Clear to auscultation. No respiratory distress. HEART: Regular rate and rhythm. Normal peripheral pulses. ABDOMEN: Soft, nontender, nondistended. EXTREMITIES: Normal range of motion. No edema. SKIN: Warm, dry, no rash. NEURO: Alert and oriented x3. PSYCH: Normal mood and affect. Course Course Emergency Course: Patient's AICD was interrogated. Received a phone call from the company [employer] who reports she was in 1 1 atrial flutter for 260 beats per minute and received 3 shocks. The paper report that came over shows that she received 2 shocks for ventricular fib/attack, and 1 episode of antitachycardia pacing. Contacted [facility] to speak with the EP. The transfer line contacted aircraft parts assembler who recommends patient be transferred since she has received 3 shocks today and had shocks earlier in the week. Patient accepted by Dr. Diaz with the hospitalist. I have given the patient metoprolol 50 mg extended release which is her home dose and she has not yet taken it today. She has received some anxiety medication. Vital Signs Vital signs: Vital Signs Temperature 98.0 F 06/25/24 11:09 Pulse Rate 88 06/25/24 11:09 Respiratory Rate 20 06/25/24 11:09 Blood Pressure 169/91 H 06/25/24 11:09 Pulse Oximetry 100 06/25/24 11:09 Oxygen Delivery Room Air 06/25/24 11:09 Temperature 98.0 F 06/25/24 11:09 Pulse Rate 68 06/25/24 19:03 Respiratory Rate 18 06/25/24 19:03 Blood Pressure 153/76 H 06/25/24 19:03 Pulse Oximetry 98 06/25/24 19:03 Oxygen Delivery Room Air 06/25/24 11:09 Medical Decision Making Vital Signs Vital Signs: Vital Signs Temperature 98.0 F 06/25/24 11:09 Pulse Rate 88 06/25/24 11:09 Respiratory Rate 20 06/25/24 11:09 Blood Pressure 169/91 H 06/25/24 11:09 Pulse Oximetry 100 06/25/24 11:09 Oxygen Delivery Room Air 06/25/24 11:09 Temperature 98.0 F 06/25/24 11:09 Pulse Rate 68 06/25/24 19:03 Respiratory Rate 18 06/25/24 19:03 Blood Pressure 153/76 H 06/25/24 19:03 Pulse Oximetry 98 06/25/24 19:03 Oxygen Delivery Room Air 06/25/24 11:09 Lab Data 06/25/24 11:23 06/25/24 11:23 Labs: Lab Results 06/25/24 06/25/24 06/25/24 Range/Units 11:23 11:25 12:10 WBC 7.9 (4.5-10.0) K/mm3 RBC 3.82 L (4.2-5.4) M/mm3 Hgb 12.7 (12.0-15.0) g/dL Hct 37.4 (37.0-47.0) % MCV 97.9 (80-100) fl MCH 33.2 (26-34) pg MCHC 34.0 (32-36) g/dl RDW 14.6 H (11.5-14.5) % Plt Count 280 (150-375) k/mm3 MPV 8.9 (7.4-10.4) fl Immature Gran % (Auto) 0.4 (0-0.5) % Neut % (Auto) 79.8 H (45.5-73.1) % Lymph % (Auto) 13.9 L (18.3-44.2) % [place] % (Auto) 5.2 (2.6-8.5) % Eos % (Auto) 0.1 (0-4.4) % Baso % (Auto) 0.6 (0.2-1.2) % Lymph # (Auto) 1.10 (0.9-3.2) K/mm3 [place] # (Auto) 0.4 (0.1-0.6) K/mm3 Eos # (Auto) 0.0 (0-0.3) K/mm3 Baso # (Auto) 0.1 (0.0-0.1) K/mm3 Abs Immat Gran (auto) 0.03 (0.00-0.031) K/mm3 Absolute Neuts (auto) 6.3 (1.3-6.7) K/mm3 Absolute Nucleated RBC 0.000 (0.0-0.012) K/mm3 Nucleated RBC % 0.0 (0.0-0.2) % PT 11.8 (11.1-14.7) Seconds INR 0.8 APTT 26.2 (22.3-36.8) Seconds Sodium 139 (137-145) mmol/L Potassium 4.1 (3.4-5.0) mmol/L Chloride 102 (98-107) mmol/L Carbon Dioxide 22 (22-30) mmol/L Anion Gap 15 H (4-12) mmol/L BUN 21 H (7-17) mg/dL Creatinine 0.72 (0.7-1.0) mg/dL Estim Creat Clear Calc 47 ml/min Estimated GFR > 60 (59 - ) Glucose 108 (65-110) mg/dL Calcium 9.8 (8.4-10.2) mg/dL Magnesium 1.6 (1.6-2.3) mg/dL Total Bilirubin 0.5 (0.2-1.3) mg/dL AST 56 H (14-36) U/L ALT 43 H (6-35) U/L Alkaline Phosphatase 163 H (38-126) U/L Troponin I < 0.012 (0.000-0.034) ng/mL NT-Pro-B Natriuret Pep 123 H (19.9-100) pg/mL Total Protein 8.0 (6.3-8.2) g/dL Albumin 4.8 (3.5-5.1) g/dL Urine Opiates Screen Negative (Negative) Urine Methadone Screen Negative (Negative) Ur Barbiturates Screen Negative (Negative) Ur Phencyclidine Scrn Negative (Negative) Ur Amphetamine Screen Negative (Negative) U Benzodiazepines Scrn Negative (Negative) Urine Cocaine Screen Negative (Negative) U Cannabinoids Screen Negative (Negative) Ethyl Alcohol < 10 (<10) mg/dL Imaging Data Radiologist's impression: ITS Impressions Chest X-Ray 06/25/24 12:26 Impression: Clear lungs. ECG Data EKG #1: ECG completion date: 06/25/24 ECG completion time: 11:27 EKG Interpretation: normal rate (81), sinus rhythm, non-specific ST changes, widened QRS, normal QT and left axis Discharge Plan Discharge Clinical Impression: Defibrillator discharge, Brugada syndrome Patient Disposition: Acute Care Hospital Condition: Stable Patient Language: Micronesian Prescriptions: No Action lorazepam 0.5 mg tablet 0.5 mg PO DAILY PRN (Reason: Anxiety) metoprolol succinate 50 mg tablet extended release 24 hr 150 mg PO DAILY ascorbic acid (vitamin C) [Vitamin C] 1,000 mg Tablet 1 g PO DAILY acetaminophen [Tylenol] 325 mg Capsule 325 mg PO ONCE PRN (Reason: Pain) cholecalciferol (vitamin D3) 25 mcg (1,000 unit) Tablet,Chewable 25 mcg PO DAILY magnesium 250 mg Tablet 250 mg PO DAILY diphenoxylate-atropine [Lomotil] 2.5-0.025 mg Tablet 1 tablet PO TID Follow-up/Referrals: Gris,RYAN Colby [Primary Care Provider] - "
--- OUTSIDE RECORDS SUMMARY | 2024-06-25 11:29 | XMS_ITS | Data Portability ---
Author Organization [facility] JOSTINEnoc Nava Address [address] [place] [address] Care Team Providers Care Retoucher Name Role Phone MARTIN PEÑA Primary Care Provider [phone] EARNESTINE LANDRY Primary Care Provider Unavailab le Assessment Encounter Date Assessment Date Assessment LastModified by Organization Details LastModified Time 09/20/2023 09/20/2023 Mammogram UTD. Got her old breast implants out . Colonoscopy: Right before covid 2019. Completed at [facility]. She is still in window of 10 years. 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 Dental: scheduled, she needs new dentures. Not available 10/07/2023 23:56:18 03/13/2024 03/13/2024 Mammogram UTD. Got her old breast implants out in recent years. Colonoscopy: Right before covid 2020. Completed at [place] [facility]. She is still in window of 10 years. 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 Dental: scheduled, she needs new dentures. Not available 04/02/2024 13:47:56 Plan of Treatment Reminders Order Date Submit Date Provider Last Modified By Organization Details Last Modified Time Details Appointments ANY 15 2024 09:15A M TYREE Nicolas Not available Not available Not available Lab lipid panel, serum 2024 025 [email or web address] [facility], [address] [facility] [address], [place], [address], 03/13/2024 16:47:15 CBC w/ auto diff 2024 025 [email or web address] [facility], [address], [place], [address], 03/13/2024 16:47:15 hepatic function panel, serum 2024 025 [email or web address] [facility], [address], [place], [address], 03/13/2024 16:47:15 BMP, serum or plasma 2024 025 [email or web address] [facility], [address], [place], [address], 03/13/2024 16:47:15 TSH + free T4, serum 2024 025 [email or web address] [facility], [address], [place], [address], 03/13/2024 16:47:15 HbA1c (hemoglob in A1c), blood 2024 025 [email or web address] [facility], [address], [place], [address], 03/13/2024 16:47:15 lipid panel, serum 2023 024 SERINA [facility], [address], [place], [address], 10/13/2023 10:13:20 CBC w/ auto diff 2023 024 SERINA [facility], [address], [place], [address], 10/13/2023 10:13:22 hepatic function panel, serum 2023 024 SERINA [facility], [address], [place], [address], 10/13/2023 10:13:21 BMP, serum or plasma 2023 024 SERINA [facility], [address], [place], [address], 10/13/2023 10:13:21 TSH + free T4, serum 2023 024 SERINA [facility], [address], [place], [address], 10/13/2023 10:13:19 HbA1c (hemoglob in A1c), blood 2023 024 SERINA [facility], [address], [place], [address], 10/13/2023 10:13:22 TSH, ultra-sen sitive, serum 2016 017 SERINA [facility], [address], [address], [place], [address], 02/04/2017 12:54:57 CBC 2016 017 SERINA [facility], [address], [place], [address], 02/04/2017 12:55:01 CMP, serum or plasma 2016 017 SERINA [facility], [address], [place], [address], 02/04/2017 12:55:00 lipid panel, serum 2016 017 SERINA [facility], [address], [place], [address], 02/04/2017 12:54:58 CBC 2016 017 SERINA [facility], [address], [place], [address], 07/30/2016 12:22:11 lipid panel, serum 2016 017 GLEN ARM [facility], [address], [place], [address], 07/30/2016 12:22:11 CMP, serum or plasma 2016 017 GLEN ARM [facility], [address], [place], [address], 07/30/2016 12:22:11 Referral dermatolo gist referral - needs new Derm, her's left. hx of BCC and hx of MOH's. 2023 024 [facility], [facility] [place], [address], 11/15/2023 17:04:08 cardiolog ist referral - Please call pt to schedule appointme nt, Thank you 2016 017 [email or web address] [facility], [address] [facility] [address], [place], [address], 10/19/2016 10:30:51 Procedures None recorded. Surgeries None recorded. Imaging XR, chest, 2 view 2023 024 [facility] ([facility]), [address], [place], [address], 11/03/2023 11:58:31 XR, ribs, unilatera l, 3 or more view 2023 024 [facility], [address], [place], [address], 11/15/2023 17:04:22 MAMMO, screening , digital, bilateral [address] [facility], [address], [place], [address], 05/19/2017 15:38:25 MAMMO, screening , digital, bilateral 2016 017 [facility], [address], [address], [address], 03/05/2017 14:33:55 Medication Orders acetamino phen 300 mg-codein e 30 mg tablet 2023 024 [email or web address] [facility], [address] [place] [address], [place], [place], [address], 11/26/2023 13:35:17 Patient TargetsNo targets recorded. 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 Referral for Br ugada syndrome Please call pt to schedule appointment, Thank you Referring Physician: Trice Peña, Internal Medicine, Encounter Date: 07/30/2016 Community Development Coordinator Referral for H istory of malignant neoplasm [...] hemat ocrit Not Available Not Available 04/12/2024 15:28:01 02/26/19 [...] plate lets Not Available Not Available 04/12/2024 15:28:02/26/19 22 [...] monoc ytes Not Available Not Available 04/12/2024 15:28:02/26/19 22 02/27/2021 CBC W Auto Diffe renti al panel - Blood eosinophils/ 100 leukocytes in blood by automated count eos Not Available Not Available 06/2024 15:28:02/26/19 22 02/27/2021 CBC W Auto Diffe renti al panel - Blood basophils/10 0 leukocytes in blood by automated count basos Not Available Not Available 06/2024 15:28:01 02/26/19 22 02/27/2021 CBC W Auto Diffe renti al panel - Blood immature cells independent living advisor immat ure cells Not Available Not Available [...] blood by automated count monoc ytes( absol delgado) Not Available Not Available 04/12/2024 15:28:01 02/26/19 [...] leukocytes [ratio] in blood by automated count independent living advisor NRBC Not Available Not Available 06/2024 15:28:02/26/19 22 02/27/2021 CBC W Auto Diffe renti al panel - Blood morphology [interpretat ion] in blood narrative independent living advisor hemat ology comme nts: Not Available Not [...] 04/12/2024 15:28:02/26/19 22 02/27/2021 Basic metab olic 2000 panel - Serum or Plasm a urea [...] uIU/m L 0.450- 4.500 Not Available [facility] ([facility]) [address] [facility], [place], [address], 10/13/2023 10:13:19 10/12/19 24 10/13/2023 TSH+F REE T4 T4,free(dire ct) 1.34 NG/dL 0.82-1 .77 Not Available [facility] ([facility]) [address] [place], [address], 10/13/2023 10:13:19 10/12/19 24 10/13/2023 LIPID PANEL cholesterol, total 208 mg/dL 100-19 9 above high normal Not Available [facility] ([facility]) [address] [place], [address], 10/13/2023 10:13:20 10/12/19 24 10/13/2023 LIPID PANEL triglyceride s 107 mg/dL 0-149 Not Available [facility] ([facility]) [address] [place], [address], 10/13/2023 10:13:20 10/12/19 24 10/13/2023 LIPID PANEL HDL cholesterol 70 mg/dL >39 Not Available [facility] ([facility]) [address] [place], [address], 10/13/2023 10:13:20 10/12/19 24 10/13/2023 LIPID PANEL VLDL cholesterol jessica 19 mg/dL 5-40 Not Available [facility] ([facility]) [address] [place], [address], 10/13/2023 10:13:20 10/12/19 24 10/13/2023 LIPID PANEL LDL chol calc ([facility]) 119 mg/dL 0-99 above high normal Not Available [facility] ([facility]) [address] [place], [address], 10/13/2023 10:13:20 10/12/19 24 10/13/2023 HEPAT IC FUNCT ION PANEL (7) protein, total 6.9 g/dL 6.0-8. 5 Not Available [facility] ([facility]) [address] [place], [address], 10/13/2023 10:13:21 10/12/19 24 10/13/2023 HEPAT IC FUNCT ION PANEL (7) albumin 4.6 g/dL 3.8-4. 8 Not Available [facility] ([facility]) [address] [facility], [place], [address], 10/13/2023 10:13:21 10/12/19 24 10/13/2023 HEPAT IC FUNCT ION PANEL (7) bilirubin, total 0.4 mg/dL 0.0-1. 2 Not Available [facility] ([facility]) [address] [facility] [place], [address], 10/13/2023 10:13:21 10/12/19 24 10/13/2023 HEPAT IC FUNCT ION PANEL (7) bilirubin, direct 0.13 mg/dL 0.00-0 .40 Not Available [facility] ([facility]) [address] [facility], [place], [address], 10/13/2023 10:13:21 10/12/19 24 10/13/2023 HEPAT IC FUNCT ION PANEL (7) alkaline phosphatase 100 IU/L 44-121 Not Available [facility]) [address] [facility] [place], [address], 10/13/2023 10:13:21 10/12/19 24 10/13/2023 HEPAT IC FUNCT ION PANEL (7) AST (SGOT) 23 IU/L 0-40 Not Available [facility] ([facility]) [address] [facility] [place], [address], 10/13/2023 10:13:21 10/12/19 24 10/13/2023 HEPAT IC FUNCT ION PANEL (7) ALT (SGPT) 18 IU/L 0-32 Not Available [facility] ([facility]) [address] [facility] [place], [address], 10/13/2023 10:13:21 10/12/19 24 10/13/2023 BMP7+ EGFR glucose 92 mg/dL 70-99 Not Available [facility] ([facility]) [address] [facility] [place], [address], 10/13/2023 10:13:21 10/12/19 24 10/13/2023 BMP7+ EGFR BUN 13 mg/dL 8-27 Not Available [facility] ([facility]) [address] [facility] [place], [address], 10/13/2023 10:13:21 10/12/19 24 10/13/2023 BMP7+ EGFR creatinine 0.57 mg/dL 0.57-1 .00 Not Available [facility] ([facility]) [address] [facility], [place], [address], 10/13/2023 10:13:21 10/12/19 24 10/13/2023 BMP7+ EGFR eGFR 97 mL/mi n/1.7 3 >59 Not Available [facility] ([facility]) [address] [facility], [place], [address], 10/13/2023 10:13:21 10/12/19 24 10/13/2023 BMP7+ EGFR sodium 141 mmol/ L 134-14 4 Not Available [facility] ([facility]) [address] [facility], [place], [address], 10/13/2023 10:13:21 10/12/19 24 10/13/2023 BMP7+ EGFR potassium 4.3 mmol/ L 3.5-5. 2 Not Available [facility] ([facility]) [address] [facility] [place], [address], 10/13/2023 10:13:21 10/12/19 24 10/13/2023 BMP7+ EGFR chloride 104 mmol/ L 96-106 Not Available [facility] ([facility]) [address] [facility] [place], [address], 10/13/2023 10:13:21 10/12/19 24 10/13/2023 BMP7+ EGFR carbon dioxide, total 21 mmol/ L 20-29 Not Available [facility] ([facility]) [address] [facility], [place], [address], 10/13/2023 10:13:21 10/12/19 24 10/13/2023 HEMOG LOBIN A1C hemoglobin A1C 5.8 % 4.8-5. 6 above high normal Predi abete s: 5.7 - 6.4 Diabe francesco: >6.4 Glyce frank contr ol for adult s with diabe francesco: <7.0 Not Available [facility] ([facility]) [address] [facility], [place], [address], 10/13/2023 10:13:22 10/12/19 24 10/13/2023 CBC WITH DIFFE RENTI AL/PL ATELE T WBC 5.4 x10e3 /uL 3.4-10 .8 Not Available [facility] ([facility]) [address] [place], [address], 10/13/2023 10:13:22 10/12/19 24 10/13/2023 CBC WITH DIFFE RENTI AL/PL ATELE T RBC 3.44 x10e6 /uL 3.77-5 .28 below low normal Not Available [facility] ([facility]) [address] [facility], [place], [address], 10/13/2023 10:13:22 10/12/19 24 10/13/2023 CBC WITH DIFFE RENTI AL/PL ATELE T hemoglobin 11.5 g/dL 11.1-1 5.9 Not Available [facility] ([facility]) [address] [place], [address], 10/13/2023 10:13:22 10/12/19 24 10/13/2023 CBC WITH DIFFE RENTI AL/PL ATELE T hematocrit 34.0 % 34.0-4 6.6 Not Available [facility] ([facility]) [address] [facility], [place], [address], 10/13/2023 10:13:22 10/12/19 24 10/13/2023 CBC WITH DIFFE RENTI AL/PL ATELE T MCV 99 fL 79-97 above high normal Not Available [facility] ([facility]) [address] [facility], [place], [address], 10/13/2023 10:13:22 10/12/19 24 10/13/2023 CBC WITH DIFFE RENTI AL/PL ATELE T MCH 33.4 pg 26.6-3 3.0 above high normal Not Available [facility] ([facility]) [address] [facility], [place], [address], 10/13/2023 10:13:22 10/12/19 24 10/13/2023 CBC WITH DIFFE RENTI AL/PL ATELE T MCHC 33.8 g/dL 31.5-3 5.7 Not Available [facility] ([facility]) [address] [facility], [place], [address], 10/13/2023 10:13:22 10/12/19 24 10/13/2023 CBC WITH DIFFE RENTI AL/PL ATELE T RDW 12.9 % 11.7-1 5.4 Not Available [facility] ([facility]) [address] [facility], [place], [address], 10/13/2023 10:13:22 10/12/19 24 10/13/2023 CBC WITH DIFFE RENTI AL/PL ATELE T platelets 248 x10e3 /uL 150-45 0 Not Available [facility] ([facility]) [address] [facility], [place], [address], 10/13/2023 10:13:22 10/12/19 24 10/13/2023 CBC WITH DIFFE RENTI AL/PL ATELE T neutrophils 51 % notest ab. Not Available [facility] ([facility]) [address] [facility], [place], [address], 10/13/2023 10:13:22 10/12/19 24 10/13/2023 CBC WITH DIFFE RENTI AL/PL ATELE T lymphs 36 % notest ab. Not Available [facility] ([facility]) [address] [facility], [place], [address], 10/13/2023 10:13:22 10/12/19 24 10/13/2023 CBC WITH DIFFE RENTI AL/PL ATELE T monocytes 10 % notest ab. Not Available [facility] ([facility]) [address] [facility], [place], [address], 10/13/2023 10:13:22 10/12/19 24 10/13/2023 CBC WITH DIFFE RENTI AL/PL ATELE T eos 2 % notest ab. Not Available [facility] ([facility]) [address] [facility], [place], [address], 10/13/2023 10:13:22 10/12/19 24 10/13/2023 CBC WITH DIFFE RENTI AL/PL ATELE T basos 1 % notest ab. Not Available [facility] ([facility]) [address] [facility], [place], [address], 10/13/2023 10:13:22 10/12/19 24 10/13/2023 CBC WITH DIFFE RENTI AL/PL ATELE T neutrophils (absolute) 2.8 x10e3 /uL 1.4-7. 0 Not Available [facility] ([facility]) [address] [facility], [place], [address], 10/13/2023 10:13:22 10/12/19 24 10/13/2023 CBC WITH DIFFE RENTI AL/PL ATELE T lymphs (absolute) 1.9 x10e3 /uL 0.7-3. 1 Not Available [facility] ([facility]) [address] [facility], [place], [address], 10/13/2023 10:13:22 10/12/19 24 10/13/2023 CBC WITH DIFFE RENTI AL/PL ATELE T monocytes(ab solute) 0.5 x10e3 /uL 0.1-0. 9 Not Available [facility] ([facility]) [address] [facility], [place], [address], 10/13/2023 10:13:22 10/12/19 24 10/13/2023 CBC WITH DIFFE RENTI AL/PL ATELE T eos (absolute) 0.1 x10e3 /uL 0.0-0. 4 Not Available [facility] ([facility]) [address] [facility], [place], [address], 10/13/2023 10:13:22 10/12/19 24 10/13/2023 CBC WITH DIFFE RENTI AL/PL ATELE T baso (absolute) 0.0 x10e3 /uL 0.0-0. 2 Not Available [facility] ([facility]) [address] [facility], [place], [address], 10/13/2023 10:13:22 10/12/19 24 10/13/2023 CBC WITH DIFFE RENTI AL/PL ATELE T immature granulocytes 0 % notest ab. Not Available [facility] ([facility]) [address] [facility], [place], [address], 10/13/2023 10:13:22 10/12/19 24 10/13/2023 CBC WITH DIFFE RENTI AL/PL ATELE T immature grans (abs) 0.0 x10e3 /uL 0.0-0. 1 Not Available [facility] ([facility]) [address] [facility], [place], [address], 10/13/2023 10:13:22 11/03/19 24 11/02/2023 XR, chest , 2 view No observ ation record ed. [facility] [address], [place], [address], 11/03/2023 12:44:42 Result Notes None recorded. Problems Name Problem SNOMED Code Status Onset Date Resolution Date Notes Provider Name and Address Organization Details Recorded Time Body mass index 20-24 - normal 724241217 Active 2023 Julianna arriaga, [place] - [facility] 4 14:11:38 Irritabl e bowel syndrome with diarrhea 888492223 Active 2023 TYREE Nicolas Attn: Accountin g,[address], [place], [address], [place] - [facility] 4 14:47:44 Benign essentia l hyperten trinidad 9212976 Active 2023 TYREE Nicolas Attn: Accountin g,[address], [place], [address], [facility] - [facility] 4 14:47:48 Degenera tive disorder of macula 352207756 Active 2023 TYREE Nicolas Attn: Accountin g,[address] [facility], [place], [address], [place] - [facility] 4 14:48:00 Long-ter m drug therapy Active 2023 TYREE Nicolas Attn: Accountin g,[address] [facility], [place], [address], [place] - [facility] 4 14:50:06 Generali zed anxiety disorder 03223208 Active 2023 TYREE Nicolas Attn: Accountin g,[address], [place], [address], [place] - [facility] 4 23:55:18 Fall in home Active 2023 TYREE Nicolas Attn: Accountin g,[address], [place], [address], [place] - [facility] 4 23:23:57 Age related macular degenera tion 679884051 Active 2024 TYREE Nicolas Attn: Radha cullen,[address] [facility], [place], [address], [facility] - [facility] 16:47:36 Brugada syndrome 438906918 Active 2015 s/p defibrila tor -sees cardio Nanthini Sut [id number]|2024-06-25 11:29:00|2024-06-25 11:29:00|XMS_ITS|BKG DAEMON|External Medical Summaries|[id number]|" Referral Summary Created on: June 25, 2024 Opal Doe : 1950 Sex: Female Author Organization [facility] Address [address] [place] [address] Care Team Providers Care Retoucher Name Role Phone Pablo Garza MD Unavailable [phone] Earnestine Landry Primary Care Pr ovider Encounters Date Type Department Care Team Description 06/12/2024 Orders Only [facility] [address] [facility] [address], [place] [address] Lauren Campos MD 06/09/2024 Orders Only [facility] [address] [facility] [address], [place] [address] Petr Hendrickson MD 06/09/2024 Telephone [facility] [address] [facility] [address], [place] [address] Petr Hendrickson MD Medtronic alert for HV therapy 06/05/2024 12:15 PM CDT Ancillary Procedure [facility] [address] [place] [address] [place] [address] AICD (automatic cardioverter/defibrill ator) present (Primary Dx); Non-ischemic cardiomyopathy (HCC) 04/28/2024 8:45 AM CDT Office Visit [facility] [address] [place] [address] Petr Hendrickson MD Cardiac arrhythmia, unspecified cardiac arrhythmia type (Primary Dx); Implantable defibrillator reprogramming/check; Brugada syndrome 04/28/2024 8:30 AM CDT Ancillary Procedure [facility] [address] [place] [address] Automatic implantable cardiac defibrillator in situ [...] 08/24/2016 Assessment & Plan (03/14/2023 1:00 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 No recent [...] is chronic from 10/26/2008, for NICM (brugada syndrome)/XNX-Gkzribb-Agkhc-Faralink Assessment & Plan (04/28/2024 1:41 PM CDT): [...] ECG. Assessment & Plan (03/11/2023 4:48 PM BUS AND TROLLEY DISPATCHER): Brugada syndrome, status post dual-chamber defibrillator. She [...] and Family Not on file 11/01/2019 Attends [employer] Not on file 10/31 Active Member [...] CDT Oxygen Saturation 99% 04/02/2022 10:32 AM BUS AND TROLLEY DISPATCHER Inhaled Oxygen Concentration - - Weight 60.9 kg (134 lb 3.2 oz) 04/28/2024 9:16 A M CDT Height 154.9 cm (5' 1 ) 04/28/2024 9:16 AM CDT Body Mass Index 25.36 04/28/2024 9:16 AM CDT Plan of Treatment Not on file Medical Devices Implanted Type Area Shear Setter Device Identifier Shelf Expiration Date Model / Serial / Lot [id number]-10/26/2008 Implanted:2008 (Quantity not on file) ICD Chest Medtronic non ischemic Procedures Procedure Name Priority Date/Time Associated Diagnosis Comments CARDIOLOGY DOCUMENT SCAN Routine 06/12/2024 3:49 PM CDT DEVICE CHECK - REMOTE Routine 06/09/2024 2:52 AM CDT DEVICE CHECK - REMOTE Routine 06/05/2024 7:55 AM CDT Non-ischemic cardiomyopathy (HCC) ECG 12-LEAD Routine 04/28/2024 9:17 AM CDT Cardiac arrhythmia, unspecified cardiac arrhythmia type DEVICE CHECK - IN OFFICE Routine 04/28/2024 8:23 AM CDT VT (ventricular tachycardia) (HCC) from Last 3 Months Results * Cardiology Document Scan (06/12/2024 3:49 PM CDT) Anatomical Region Laterality Modality Other us Historical Provider [facility] KATHRINE DURES Final Result * DEVICE CHECK - REMOTE (06/09/2024 2:52 AM CDT) Anatomical Region Laterality Modality Other 06/09/2024 2:52 AM CDT Narrative 06/10/2024 2:21 PM CDT Refer to Epic phone encounter. REGINALD Dorman Device Specialist us Petr Hendrickson MD [facility] PRO CEDURES Final Result * DEVICE CHECK - REMOTE (06/05/2024 7:55 AM CDT) Anatomical Region Laterality Modality Other Narrative 06/23/2024 1:14 PM CDT Table formatting from the original result was not included. ICD CHECK (REMOTE) Patient ID: Opal Doe is a 73 y.o. female This patient received a Medtronic ICD. They had a remote transmission on 06/05/2024. Device implant indications: Nonischemic dilated cardiomyopathy Interrogation of the patient's device demonstrates the following: Presenting EGM: A sensed V sensed @ 85 bpm Original Device Settings Right Atrium Right Ventricle Sensitivity (mV) 0.3 mV 0.3 mV Pacing Outputs 1.5 V @ 0.4 ms 2.0 V @ 0.4 ms Testing Measurements Right Atrium Right Ventricle Sensitivity (mV) 3.6 mV 11.8 mV Impedence (Ohms) 494 ohms 513 ohms High Voltage Impedence 63 ohms Pace Threshold 0.375 V @ 0.4 ms 0.625 V @ 0.4 ms Pacing % 56 % Less than 0.1 % Battery Status: 2.5 years to BALDEMAR with Charge Time 4.2 seconds Episodes last 90 days/Comments: AF Orovada 0%, longest duration0 There were no treated ventricular arrhythmias noted on today's remote interrogation. NORMAL DEVICE FUNCTION PROGRAMMED Medications: Anti-coagulant(s): None Anti-arrhythmic(s): Toprol-XL 100 mg twice daily PLAN: 1) Medtronic ICD evaluation. 2) Medtronic remote transmission scheduled in 3 months. 3) Programming appropriate for device measurements Kb Velasquez, RN us Petr Hendrickson MD [facility] PRO CEDURES Final Result * ECG 12 lead (04/28/2024 9:17 AM CDT) us Petr Hendrickson MD ECG ORDERABLES Final R esult * DEVICE CHECK - IN OFFICE (04/28/2024 8:23 AM CDT) Anatomical Region Laterality Modality Other Narrative 04/29/2024 3:08 PM CDT Table formatting from the original result was not included. ICD CHECK (IN OFFICE) Patient ID: Opal Doe is a 73 y.o. female. 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
--- OUTSIDE RECORDS SUMMARY | 2024-06-25 11:29 | XMS_ITS | Clinical Summary ---
Author Organization [facility] Address [address] [place] [address] Care Team Providers Care Diesel Locomotive Engineer Name Role Phone Pablo Garza MD Unavailable [phone] Earnestine Landry Primary Care Pr ovider Allergies [...] 08/24/2016 Assessment & Plan (03/14/2023 1:00 PM WEBSITE OPTIMIZATION STRATEGIST): Brugada syndrome, status post ICD. No recent [...] is chronic from 10/26/2008, for NICM (brugada syndrome)/IWI-Vjitndy-Cswhn-Nathan Assessment & Plan (04/28/2024 1:41 PM CDT): [...] ECG. Assessment & Plan (03/11/2023 4:48 PM WEBSITE OPTIMIZATION STRATEGIST): Brugada syndrome, status post dual-chamber defibrillator. She [...] Team Description 06/12/2024 [facility] [address] [place] [phone] Lauren Campos MD 06/09/2024 Orders [facility] [address] [place] [phone] Petr Hendrickson MD 06/09/2024 Telephone [facility] [address] [place] [phone] Petr Hendrickson MD Medtronic alert for HV therapy 06/05/2024 12:15 PM CDT Ancillary Procedure [facility] [address] [place] [phone] AICD (automatic cardioverter/defibrill ator) present (Primary Dx); Non-ischemic cardiomyopathy (HCC) 04/28/2024 8:45 AM CDT Office Visit [facility] [address] [place] [phone] Petr Hendrickson MD Cardiac arrhythmia, unspecified cardiac arrhythmia type (Primary Dx); Implantable defibrillator reprogramming/check; Brugada syndrome 04/28/2024 8:30 AM CDT Ancillary Procedure [facility] [address], [place] [address] Automatic implantable cardiac defibrillator in situ [...] and Family Not on file 11/01/2019 Attends [employer] Services Not on file 10/31 Active Member [...] CDT Oxygen Saturation 99% 04/02/2022 10:32 AM WEBSITE OPTIMIZATION STRATEGIST Inhaled Oxygen Concentration - - Weight 60.9 [...] Well Visit 65+ 10/31/2020 11/01/2019 Covid-19 Vaccine (5 - 2023-2 5 season) 2023 05/18/2021, 12/08/2020, 04/20/2020, Additional history exists Influenza Vaccine Completed 10/16/2023, , 10/10/2015 Medical Devices Implanted Type Area Fitting Room Maintenance Mechanic Device Identifier Shelf Expiration Date Model / [...] PM CDT) Anatomical Region Laterality Modality Other Historical Provider [facility] KATHRINE MOORE Final Result * DEVICE CHECK - REMOTE (06/09/2024 2:52 AM CDT) Anatomical Region Laterality Modality Other 06/09/2024 2:52 AM CDT Narrative 06/10/2024 2:21 PM CDT Refer to Epic phone encounter. REGINALD Dorman Device Specialist Petr Hendrickson MD [facility] PRO CEDURES Final Result * DEVICE CHECK - REMOTE (06/05/2024 7:55 AM CDT) Anatomical Region Laterality Modality Other Narrative 06/23/2024 1:14 PM CDT Table formatting from the original result was not included. ICD CHECK (REMOTE) Patient ID: Lynn Doe is a 73 y.o. female This [...] 4.2 seconds Episodes last 90 days/Comments: AF Townsend 0%, longest duration0 There were no treated [...] 4.1 seconds Episodes last 90 days/Comments: AF Townsend 0%, longest duration0 There were no treated [...] Final Result from Last 3 Months Insurance [facility] MEDICARE [facility] Address: [address] [address] [place] [address] [employer] MEDICARE [facility] Address: [address] [address] [place] [address] [place] [id number] [facility] MEDICARE [facility] Address: [facility] [address] [place] [address] Advance Directives For more information, please contact: [phone] Documents on File Type Date Recorded Patient Soa Architect Expl anation ADVANCE DIRECTIVE 09/23/2016 Advance Di rective Checklist ADVANCE DIRECTIVE 08/20/2016 ADVANCE DIRECTIVE 03/24/2016 12:00 AM HILL R OF SOLDERER FURNACE FINANCIAL/MEDICAL Care Teams Diesel Locomotive Engineer Relationship Specialty Start Date End Date Earnestine Landry PA PCP - General Physician Homicide Squad Sergeant 09/02/17 Pablo Garza MD Consulting Physician Cardiology 09/02/17
[2024-06-25 11:35] LABS: Basophils Absolute Auto 0.1 K/mm3 (0.0-0.1); Basophils Percent Auto 0.6 % (0.2-1.2); Eosinophils Percent Auto 0.1 % (0-4.4); Hematocrit 37.4 % (37.0-47.0); Hemoglobin 12.7 g/dL (12.0-15.0); Immature Granulocyte Absolute 0.03 K/mm3 (0.00-0.031); Immature Granulocyte Percent A 0.4 % (0-0.5); Lymphocytes Percent Auto 13.9 % (18.3-44.2); Mean Corpuscular Hemoglobin 33.2 pg (26-34); Mean Corpuscular Volume 97.9 fl (80-100); Mean Platelet Volume 8.9 fl (7.4-10.4); Monocytes Absolute Auto 0.4 K/mm3 (0.1-0.6); Monocytes Percent Auto 5.2 % (2.6-8.5); Neutrophils Absolute Auto 6.3 K/mm3 (1.3-6.7); Neutrophils Percent Auto 79.8 % (45.5-73.1); Platelet Count Result 280 k/mm3 (150-375); Red Blood Count 3.82 M/mm3 (4.2-5.4); Red Cell Distribution Width 14.6 % (11.5-14.5); White Blood Count 7.9 K/mm3 (4.5-10.0)
[2024-06-25 11:45] LABS: Alanine Aminotransferase 43 U/L (6-35); Albumin Level 4.8 g/dL (3.5-5.1); Alkaline Phosphatase 163 U/L (38-126); Anion Gap 15 mmol/L (4-12); Aspartate Amino Transferase 56 U/L (14-36); Bilirubin,Total 0.5 mg/dL (0.2-1.3); Blood Urea Nitrogen 21 mg/dL (7-17); Calcium 9.8 mg/dL (8.4-10.2); Carbon Dioxide 22 mmol/L (22-30); Chloride 102 mmol/L (98-107); Estimated CRCL calculation 47 ml/min; Estimated Glomerular Filt Rate > 60; Glucose 108 mg/dL (65-110); Magnesium 1.6 mg/dL (1.6-2.3); Potassium 4.1 mmol/L (3.4-5.0); Sodium 139 mmol/L (137-145)
[2024-06-25 11:49] LABS: INR 0.8; Prothrombin Time 11.8 Seconds (11.1-14.7)
[2024-06-25 11:50] LABS: Partial Thromboplastin Time 26.2 Seconds (22.3-36.8)
[2024-06-25 11:56] LABS: NT Pro B Type Natriuretic Pept 123 pg/mL (19.9-100); Troponin I < 0.012 ng/mL (0.000-0.034)
[2024-06-25 12:00] LABS: Ethanol < 10 mg/dL (<10)
[2024-06-25 12:34] LABS: Amphetamine Screen Urine Negative (Negative); Barbiturate Screen Urine Negative (Negative); Benzodiazepines Screen Urine Negative (Negative); Cannabinoid Screen Urine Negative (Negative); Cocaine Screen Urine Negative (Negative); Methadone Screen Urine Negative (Negative); Opiate Screen Urine Negative (Negative); Phencyclidine Screen Urine Negative (Negative)
--- NOTE | 2024-06-25 15:45 | PC.NURSE ---
Pt is on wait list for [facility].
[2024-06-25] MEDS: METOPROLOL SUCCINATE EXT REL 50 MG TABCR PO (15:50)
[2024-06-25] MEDS: LORazepam INJ (*CRX) 2 MG/ML VIAL 0.5 MG IV PUSH (16:50)
--- NOTE | 2024-06-25 17:52 | PC.NURSE ---
Pt admit to [facility] room 1315-B Report called to Alon BUCKLEY at [phone]
== END 2024-06-25 19:05 | disposition short-term general hospital (02) ==
PROVIDERS: Emergency Provider Emergency Medicine; PCP Physician Assistant
DX: I49.8 Other specified cardiac arrhythmias (principal); Z95.810 Presence of automatic (implantable) cardiac defibrillator; F41.8 Other specified anxiety disorders; Z87.891 Personal history of nicotine dependence
CPT/HCPCS: 36415; 71045; 80053; 80307; 82077; 83735; 83880; 84484; 85025; 85610; 85730; 93005; 96374; 99284; A9270; J2060

== ENCOUNTER 2025-01-02 00:29 | Day surgery (SDC) | payer MEDICARE, SELFPAY ==
[2024-12-26 15:45] VITALS: BMI 24.7
--- OUTSIDE RECORDS SUMMARY | 2025-01-02 00:35 | XMS_ITS | Encounter Summary ---
Author Organization [facility] Address [address] [place] [address] Care Team Providers Care Aquatic Centre Manager Name Role Phone Pablo Garza MD Unavailable [phone] Earnestine Landry Primary Care Pr ovider Encounter Details Date Type Department Care Team (Late st Contact Info) Description 01/01/2025 Telephone [facility] [address] [facility] [address] [place] [phone] Barbara Mata, HANK [address] [address] Social History Tobacco Use Types Packs/Day Years Used Date Smoking Tobacco: Former Smokeless Tobacco: Former Alcohol Use Standard Drinks/Week Comments Not Currently 0 (1 standard drink = 0.6 oz pur e alcohol) severe alcohol abuse Social Connection and Isolation Panel Answer Date Recorded Frequency of Communication with Friends and Fami ly Not on file 11/01/2019 Frequency of Social Gatherings with Friends and Family Not on file 11/01/2019 Attends Synagogue Services Not on file 10/31 Active Member of Clubs or Organizations Not on f ile 11/01/2019 Attends Club or Organization Meetings Not on jordyn e 11/01/2019 Are you , , di vorced, , never , or living with a partner? 11/01/2019 AUDIT-C Answer Date Recorded Q1: How often do you have a drink containing alc ohol? 2-4 times a month 09/08/2024 Q2: How many drinks containi ng alcohol do you have on a typical day when you are drinking? 1 or 2 09/08/2024 Q3: How often do you have si x or more drinks on one occasion? Less than monthly 09/08/2024 Personal Safety Answer Date Recorded Have you ever been in or are you currently in a harmful physical or emotional relationship or is someone making you feel afraid or unsafe? Denies 09/08/2024 Comments No Sex and Gender Information Value Date Recorded Sex Assigned at Not on file Legal Sex Female 4:45 AM CDT Gender Identity Not on file Sexual Orientation Not on file documented as of this encounter Miscellaneous Notes * Telephone Encounter - [place] - 01/01/2025 2:31 PM CST [facility] request last office note. Faxed to [phone] L RECOVERY SPECIALIST documented in this encounter Plan of Treatment Not on file documented as of this encounter Visit Diagnoses Not on filedocumented in this encounter Care Teams Aquatic Centre Manager Relationship Specialty Start Date End Date Earnestine Landry PA [address] [place] [address] PCP - General Physician Automation Mechanic 07/21/24 Pablo Garza MD Consulting Physician Cardiology 09/02/17 documented as of this encounter
--- OUTSIDE RECORDS SUMMARY | 2025-01-02 00:35 | XMS_ITS | Data Portability ---
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 Got her old breast implants out . Colonoscopy: Right before covid 2019. Completed at [facility]. She is still in window of 10 years. 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 Dental: scheduled, she needs new dentures. Not available 10/07/2023 23:56:18 03/13/2024 03/13/2024 Mammogram UTD. Got her old breast implants out in recent years. Colonoscopy: Right before covid 2020. Completed at [facility]. She is still in window of 10 years. 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 Dental: scheduled, she needs new dentures. Not available 04/02/2024 13:47:56 09/19/2024 09/19/2024 Mammogram UTD. Got her old breast implants out in recent years. Colonoscopy: Right before covid 2019. Completed at [facility]. next one is December 2024 Eye exam UTD, early start to dry macular degen. Dental: scheduled, she needs new dentures. Not available 10/07/2024 23:45:12 Plan of Treatment Reminders Order Date Submit Date Provider Last Modified By Organization Details Last Modified Time Details Appointments ANY 15 2025 09:30A M TYREE Nicolas Not available Not available Not available Lab magnesium , serum or plasma 2024 025 [facility], [address], [place], [address], 10/17/2024 09:08:16 cobalamin and folate panel, serum 2024 025 [facility], [address], [place], [address], 10/17/2024 09:08:15 CBC w/ auto diff 2024 025 [facility], [address], [place], [address], 10/17/2024 09:08:16 hepatic function panel, serum 2024 025 [facility], [address], [place], [address], 10/17/2024 09:08:14 BMP, serum or plasma 2024 025 [facility], [address], [place], [address], 10/17/2024 09:08:14 TSH + free T4, serum 2024 025 [facility], [address], [place], [address], 10/17/2024 09:08:13 lipid panel, serum 2024 025 [facility], [address], [place], [address], 10/17/2024 09:08:13 HbA1c (hemoglob in A1c), blood 2024 025 [facility], [address], [place], [address], 10/17/2024 09:08:15 lipid panel, serum 2024 025 [email or web address], [address] [facility], [place], [address], 10/26/2024 16:10:19 CBC w/ auto diff 2024 025 [email or web address], [address] [facility] [address], [place], [address], 10/26/2024 16:10:06 hepatic function panel, serum 2024 025 [email or web address], [address] [facility], [facility] [address], [place], [address], 10/26/2024 16:10:45 BMP, serum or plasma 2024 025 [email or web address], [address] [facility], [facility] [address], [place], [address], 10/26/2024 16:10:39 TSH + free T4, serum 2024 025 [email or web address], [address] [facility], [facility] [address], [place], [address], 10/26/2024 16:10:31 HbA1c (hemoglob in A1c), blood 2024 025 [email or web address], [facility], [facility] [address], [place], [address], 10/26/2024 16:10:25 lipid panel, serum 2023 024 [facility], [address], [place], [address], 10/13/2023 10:13:20 CBC w/ auto diff 2023 024 [facility], [address] [facility], [place], [address], 10/13/2023 10:13:22 hepatic function panel, serum 2023 024 [facility], [address] [facility], [place], [address], 10/13/2023 10:13:21 BMP, serum or plasma 2023 024 [facility], [address] [facility], [address], [place], [address], 10/13/2023 10:13:21 TSH + free T4, serum 2023 024 [facility], [address] [facility], [place], [address], 10/13/2023 10:13:19 HbA1c (hemoglob in A1c), blood 2023 024 [facility], [address] [facility], [facility] [address], [place], [address], 10/13/2023 10:13:22 Referral dermatolo gist referral - needs new Derm, her's left. hx of BCC and hx of MOH's. 2023 024 [facility], [facility] [place], [address], 11/15/2023 17:04:08 Procedures None recorded. Surgeries None recorded. Imaging XR, chest, 2 view 2023 024 [facility] ([facility]), [address], [place], [address], 11/03/2023 11:58:31 XR, ribs, unilatera l, 3 or more view 2023 024 [facility], [address], [place], [address], 11/15/2023 17:04:22 Medication Orders meclizine 25 mg tablet 2024 025 [facility], [address] [facility] , [place], [place], [id number], 09/19/2024 10:50:11 lorazepam 0.5 mg tablet 2024 025 [facility], [address] [facility] , [place], [place], [id number], 09/19/2024 10:50:11 Rozerem 8 mg tablet 2024 025 [facility], [address] [facility] , [place], [place], [id number], 07/21/2024 11:41:33 acetamino phen 300 mg-codein e 30 mg tablet 2023 024 [email or web address], [address] [facility] [address] [facility] , [place], [place], [id number], 11/26/2023 13:35:17 Patient TargetsNo targets recorded. Patient InstructionsNo instructions recorded. 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 hx of BCC and hx of MOH's. Referring Physician: Earnestine Landry, Internal Medicine, Encounter Date: 09/20/2023 Results Created Date Observation Date Name Description Value Unit Range Abnormal Flag Note LastModifiedBy Organization Detail LastModifiedTime 10/12/1910/13/2023 TSH+F REE T4 TSH 1.610 uIU/m L 0.450- 4.500 Not Available [facility] ([facility]) [address], [place], [address], 10/13/2023 10:13:19 10/12/1910/13/2023 TSH+F REE T4 T4,free(dire ct) 1.34 NG/dL 0.82-1 .77 Not Available [facility] ([facility]) [address] [facility], [place], [address], 10/13/2023 10:13:19 10/12/19 24 10/13/2023 LIPID PANEL cholesterol, total 208 mg/dL 100-19 9 above high normal Not Available [facility] ([facility]) [address] [place], [address], 10/13/2023 10:13:20 10/12/19 24 10/13/2023 LIPID PANEL triglyceride s 107 mg/dL 0-149 Not Available [facility]) [address] [place], [address], 10/13/2023 10:13:20 10/12/19 24 10/13/2023 LIPID PANEL HDL cholesterol 70 mg/dL >39 Not Available [facility]) [address] [place], [address], 10/13/2023 10:13:20 10/12/19 24 10/13/2023 LIPID PANEL VLDL cholesterol jessica 19 mg/dL 5-40 Not Available [facility]) [address] [place], [address], 10/13/2023 10:13:20 10/12/19 24 10/13/2023 LIPID PANEL LDL chol calc ([facility]) 119 mg/dL 0-99 above high normal Not Available [facility] ([facility]) [address] [place], [address], 10/13/2023 10:13:20 10/12/19 24 10/13/2023 HEPAT IC FUNCT ION PANEL (7) protein, total 6.9 g/dL 6.0-8. 5 Not Available [facility] ([facility]) [address] [place], [address], 10/13/2023 10:13:21 10/12/19 24 10/13/2023 HEPAT IC FUNCT ION PANEL (7) albumin 4.6 g/dL 3.8-4. 8 Not Available [facility] ([facility]) [address] [place], [address], 10/13/2023 10:13:21 10/12/19 24 10/13/2023 HEPAT IC FUNCT ION PANEL (7) bilirubin, total 0.4 mg/dL 0.0-1. 2 Not Available [facility] ([facility]) [address] [place], [address], 10/13/2023 10:13:21 10/12/19 24 10/13/2023 HEPAT IC FUNCT ION PANEL (7) bilirubin, direct 0.13 mg/dL 0.00-0 .40 Not Available [facility] ([facility]) [address] [place], [address], 10/13/2023 10:13:21 10/12/19 24 10/13/2023 HEPAT IC FUNCT ION PANEL (7) alkaline phosphatase 100 IU/L 44-121 Not Available [facility]) [address] [place], [address], 10/13/2023 10:13:21 10/12/19 24 10/13/2023 HEPAT IC FUNCT ION PANEL (7) AST (SGOT) 23 IU/L 0-40 Not Available [facility] ([facility]) [address] [place], [address], 10/13/2023 10:13:21 10/12/19 24 10/13/2023 HEPAT IC FUNCT ION PANEL (7) ALT (SGPT) 18 IU/L 0-32 Not Available [facility] ([facility]) [address] [place], [address], 10/13/2023 10:13:21 10/12/19 24 10/13/2023 BMP7+ EGFR glucose 92 mg/dL 70-99 Not Available [facility] ([facility]) [address] [place], [address], 10/13/2023 10:13:21 10/12/19 24 10/13/2023 BMP7+ EGFR BUN 13 mg/dL 8-27 Not Available [facility] ([facility]) [address], [place], [address], 10/13/2023 10:13:21 10/12/19 24 10/13/2023 BMP7+ EGFR creatinine 0.57 mg/dL 0.57-1 .00 Not Available [facility] ([facility]) [address], [place], [address], 10/13/2023 10:13:21 10/12/19 24 10/13/2023 BMP7+ EGFR eGFR 97 mL/mi n/1.7 3 >59 Not Available [facility] ([facility]) [address], [place], [address], 10/13/2023 10:13:21 10/12/19 24 10/13/2023 BMP7+ EGFR sodium 141 mmol/ L 134-14 4 Not Available [facility] ([facility]) [address], [place], [address], 10/13/2023 10:13:21 10/12/19 24 10/13/2023 BMP7+ EGFR potassium 4.3 mmol/ L 3.5-5. 2 Not Available [facility] ([facility]) [address], [place], [address], 10/13/2023 10:13:21 10/12/19 24 10/13/2023 BMP7+ EGFR chloride 104 mmol/ L 96-106 Not Available [facility] ([facility]) [address], [place], [address], 10/13/2023 10:13:21 10/12/19 24 10/13/2023 BMP7+ EGFR carbon dioxide, total 21 mmol/ L 20-29 Not Available [facility] ([facility]) [address], [place], [address], 10/13/2023 10:13:21 10/12/19 24 10/13/2023 HEMOG LOBIN A1C hemoglobin A1C 5.8 % 4.8-5. 6 above high normal Predi abete s: 5.7 - 6.4 Diabe francesco: >6.4 Glyce frank contr ol for adult s with diabe francesco: <7.0 Not Available [facility] ([facility]) [address], [place], [address], 10/13/2023 10:13:22 10/12/19 24 10/13/2023 CBC WITH DIFFE RENTI AL/PL ATELE T WBC 5.4 x10e3 /uL 3.4-10 .8 Not Available [facility] ([facility]) [address] [facility], [place], [address], 10/13/2023 10:13:22 10/12/19 24 10/13/2023 CBC WITH DIFFE RENTI AL/PL ATELE T RBC 3.44 x10e6 /uL 3.77-5 .28 below low normal Not Available [facility] ([facility]) [address], [place], [address], 10/13/2023 10:13:22 10/12/19 24 10/13/2023 CBC WITH DIFFE RENTI AL/PL ATELE T hemoglobin 11.5 g/dL 11.1-1 5.9 Not Available [facility] ([facility]) [address], [place], [address], 10/13/2023 10:13:22 10/12/19 24 10/13/2023 CBC WITH DIFFE RENTI AL/PL ATELE T hematocrit 34.0 % 34.0-4 6.6 Not Available [facility] ([facility]) [address], [place], [address], 10/13/2023 10:13:22 10/12/19 24 10/13/2023 CBC WITH DIFFE RENTI AL/PL ATELE T MCV 99 fL 79-97 above high normal Not Available [facility] ([facility]) [address] [place], [address], 10/13/2023 10:13:22 10/12/19 24 10/13/2023 CBC WITH DIFFE RENTI AL/PL ATELE T MCH 33.4 pg 26.6-3 3.0 above high normal Not Available [facility] ([facility]) [address], [place], [address], 10/13/2023 10:13:22 10/12/19 24 10/13/2023 CBC WITH DIFFE RENTI AL/PL ATELE T MCHC 33.8 g/dL 31.5-3 5.7 Not Available [facility] ([facility]) [address] [place], [address], 10/13/2023 10:13:22 10/12/19 24 10/13/2023 CBC WITH DIFFE RENTI AL/PL ATELE T RDW 12.9 % 11.7-1 5.4 Not Available [facility] ([facility]) [address] [place], [address], 10/13/2023 10:13:22 10/12/19 24 10/13/2023 CBC WITH DIFFE RENTI AL/PL ATELE T platelets 248 x10e3 /uL 150-45 0 Not Available [facility] ([facility]) [address], [place], [address], 10/13/2023 10:13:22 10/12/19 24 10/13/2023 CBC WITH DIFFE RENTI AL/PL ATELE T neutrophils 51 % notest ab. Not Available [facility] ([facility]) [address] [place], [address], 10/13/2023 10:13:22 10/12/19 24 10/13/2023 CBC WITH DIFFE RENTI AL/PL ATELE T lymphs 36 % notest ab. Not Available [facility] ([facility]) [address] [facility], [place], [address], 10/13/2023 10:13:22 10/12/19 24 10/13/2023 CBC WITH DIFFE RENTI AL/PL ATELE T monocytes 10 % notest ab. Not Available [facility] ([facility]) [address], [place], [address], 10/13/2023 10:13:22 10/12/19 24 10/13/2023 CBC WITH DIFFE RENTI AL/PL ATELE T eos 2 % notest ab. Not Available [facility] ([facility]) [address], [place], [address], 10/13/2023 10:13:22 10/12/19 24 10/13/2023 CBC WITH DIFFE RENTI AL/PL ATELE T basos 1 % notest ab. Not Available [facility] ([facility]) [address], [place], [address], 10/13/2023 10:13:22 10/12/19 24 10/13/2023 CBC WITH DIFFE RENTI AL/PL ATELE T neutrophils (absolute) 2.8 x10e3 /uL 1.4-7. 0 Not Available [facility] ([facility]) [address], [place], [address], 10/13/2023 10:13:22 10/12/19 24 10/13/2023 CBC WITH DIFFE RENTI AL/PL ATELE T lymphs (absolute) 1.9 x10e3 /uL 0.7-3. 1 Not Available [facility] ([facility]) [address], [place], [address], 10/13/2023 10:13:22 10/12/19 24 10/13/2023 CBC WITH DIFFE RENTI AL/PL ATELE T monocytes(ab solute) 0.5 x10e3 /uL 0.1-0. 9 Not Available [facility] ([facility]) [address], [place], [address], 10/13/2023 10:13:22 10/12/19 24 10/13/2023 CBC WITH DIFFE RENTI AL/PL ATELE T eos (absolute) 0.1 x10e3 /uL 0.0-0. 4 Not Available [facility] ([facility]) [address], [place], [address], 10/13/2023 10:13:22 10/12/19 24 10/13/2023 CBC WITH DIFFE RENTI AL/PL ATELE T baso (absolute) 0.0 x10e3 /uL 0.0-0. 2 Not Available [facility] ([facility]) [address], [place], [address], 10/13/2023 10:13:22 10/12/19 24 10/13/2023 CBC WITH DIFFE RENTI AL/PL ATELE T immature granulocytes 0 % notest ab. Not Available [facility] ([facility]) [address], [place], [address], 10/13/2023 10:13:22 10/12/19 24 10/13/2023 CBC WITH DIFFE RENTI AL/PL ATELE T immature grans (abs) 0.0 x10e3 /uL 0.0-0. 1 Not Available [facility] ([facility]) [address] [place], [address], 10/13/2023 10:13:22 10/17/19 25 10/17/2024 LIPID PANEL W/ CHOL/ HDL RATIO cholesterol, total 218 mg/dL 100-19 9 above high normal Not Available [facility] ([facility]) [address], [place], [address], 10/17/2024 09:08:13 10/17/19 25 10/17/2024 LIPID PANEL W/ CHOL/ HDL RATIO triglyceride s 118 mg/dL 0-149 Not Available [facility] ([facility]) [address] [place], [address], 10/17/2024 09:08:13 10/17/19 25 10/17/2024 LIPID PANEL W/ CHOL/ HDL RATIO HDL cholesterol 56 mg/dL >39 Not Available [facility]) [address] [place], [address], 10/17/2024 09:08:13 10/17/19 25 10/17/2024 LIPID PANEL W/ CHOL/ HDL RATIO VLDL cholesterol jessica 21 mg/dL 5-40 Not Available [facility]) [address] [place], [address], 10/17/2024 09:08:13 10/17/1910/17/2024 LIPID PANEL W/ CHOL/ HDL RATIO LDL chol calc ([facility]) 141 mg/dL 0-99 above high normal Not Available [facility] ([facility]) [address] [place], [address], 10/17/2024 09:08:13 10/17/1910/17/2024 LIPID PANEL W/ CHOL/ HDL RATIO T. chol/HDL ratio 3.9 ratio 0.0-4. 4 T. Chol/ HDL Ratio Men Women 1/2 Avg.R isk 3.4 3.3 Avg.R isk 5.0 4.4 2X Avg.R isk 9.6 7.1 3X Avg.R isk 23.4 11.0 Not Available [facility] ([facility]) [address] [place], [address], 10/17/2024 09:08:13 10/17/19 25 10/17/2024 TSH+F REE T4 TSH 1.110 uIU/m L 0.450- 4.500 Not Available [facility] ([facility]) [address] [place], [address], 10/17/2024 09:08:13 10/17/1910/17/2024 TSH+F REE T4 T4,free(dire ct) 1.20 NG/dL 0.82-1 .77 Not Available [facility] ([facility]) [address], [place], [address], 10/17/2024 09:08:13 10/17/1910/17/2024 HEPAT IC FUNCT ION PANEL (7) protein, total 7.0 g/dL 6.0-8. 5 Not Available [facility] ([facility]) [address] [place], [address], 10/17/2024 09:08:14 10/17/1910/17/2024 HEPAT IC FUNCT ION PANEL (7) albumin 4.7 g/dL 3.8-4. 8 Not Available [facility] ([facility]) [address] [place], [address], 10/17/2024 09:08:14 10/17/1910/17/2024 HEPAT IC FUNCT ION PANEL (7) bilirubin, total 0.4 mg/dL 0.0-1. 2 Not Available [facility] ([facility]) [address], [place], [address], 10/17/2024 09:08:14 10/17/1910/17/2024 HEPAT IC FUNCT ION PANEL (7) bilirubin, direct 0.12 mg/dL 0.00-0 .40 Not Available [facility] ([facility]) [address] [place], [address], 10/17/2024 09:08:14 10/17/1910/17/2024 HEPAT IC FUNCT ION PANEL (7) alkaline phosphatase 101 IU/L 44-121 Eff ectiv e Septe mber 2024 Alkal ine Phosp hatas e refer ence inter hoa will be pope ing to: Age Male Femal e 0 - 5 days 47 - 127 47 - 127 6 - 10 days 29 - 242 29 - 242 11 - 20 days 109 - 357 109 - 357 21 - 30 days 94 - 494 94 - 494 1 - 2 month s 149 - 539 149 - 539 3 - 6 month s 131 - 452 131 - 452 7 - 11 month s 117 - 401 117 - 401 12 month s - 6 years 158 - 369 158 - 369 7 - 12 years 150 - 409 150 - 409 13 years 156 - 435 78 - 227 14 years 114 - 375 64 - 161 15 years 88 - 279 56 - 134 16 years 74 - 207 51 - 121 17 years 63 - 161 47 - 113 18 - 20 years 51 - 125 42 - 106 21 - 50 years 47 - 123 41 - 116 51 - 80 years 49 - 135 51 - 125 >80 years 48 - 129 48 - 129 Not Available [facility] ([facility]) [address] [place], [address], 10/17/2024 09:08:14 10/17/19 25 10/17/2024 HEPAT IC FUNCT ION PANEL (7) AST (SGOT) 29 IU/L 0-40 Not Available [facility] ([facility]) [address] [place], [address], 10/17/2024 09:08:14 10/17/19 25 10/17/2024 HEPAT IC FUNCT ION PANEL (7) ALT (SGPT) 18 IU/L 0-32 Not Available [facility] ([facility]) [address] [place], [address], 10/17/2024 09:08:14 10/17/19 25 10/17/2024 BMP7+ EGFR glucose 94 mg/dL 70-99 Not Available [facility] ([facility]) [address] [place], [address], 10/17/2024 09:08:14 10/17/19 25 10/17/2024 BMP7+ EGFR BUN 11 mg/dL 8-27 Not Available [facility] ([facility]) [address] [place], [address], 10/17/2024 09:08:14 10/17/19 25 10/17/2024 BMP7+ EGFR creatinine 0.74 mg/dL 0.57-1 .00 Not Available [facility] ([facility]) [address] [facility] [address], [place], [address], 10/17/2024 09:08:14 10/17/19 25 10/17/2024 BMP7+ EGFR eGFR 86 mL/mi n/1.7 3 >59 Not Available [facility] ([facility]) [address] [place], [address], 10/17/2024 09:08:14 10/17/19 25 10/17/2024 BMP7+ EGFR sodium 139 mmol/ L 134-14 4 Not Available [facility] ([facility]) [address] [place], [address], 10/17/2024 09:08:14 10/17/19 25 10/17/2024 BMP7+ EGFR potassium 4.9 mmol/ L 3.5-5. 2 Not Available [facility] ([facility]) [address] [place], [address], 10/17/2024 09:08:14 10/17/19 25 10/17/2024 BMP7+ EGFR chloride 104 mmol/ L 96-106 Not Available [facility] ([facility]) [address] [place], [address], 10/17/2024 09:08:14 10/17/19 25 10/17/2024 BMP7+ EGFR carbon dioxide, total 20 mmol/ L 20-29 Not Available [facility] ([facility]) [address] [place], [address], 10/17/2024 09:08:14 10/17/19 25 10/17/2024 VITAM IN B12 AND FOLAT E vitamin B12 651 pg/mL 232-12 45 Not Available [facility] ([facility]) [address], [place], [address], 10/17/2024 09:08:15 10/17/1910/17/2024 VITAM IN B12 AND FOLAT E folate (folic acid), serum 15.5 NG/mL >3.0 A serum folat e ronda ntrat ion of less than 3.1 ng/mL is consi dered to repre sent clini jessica defic iency . Not Available [facility] ([facility]) [address], [place], [address], 10/17/2024 09:08:15 10/17/1910/17/2024 HEMOG LOBIN A1C hemoglobin A1C 5.4 % 4.8-5. 6 Predi abete s: 5.7 - 6.4 Diabe francesco: >6.4 Glyce frank contr ol for adult s with diabe francesco: <7.0 Not Available [facility] ([facility]) [address], [place], [address], 10/17/2024 09:08:15 10/17/1910/17/2024 MAGNE SIUM magnesium 2.0 mg/dL 1.6-2. 3 Not Available [facility] ([facility]) [address], [place], [address], 10/17/2024 09:08:16 10/17/1910/17/2024 CBC WITH DIFFE RENTI AL/PL ATELE T WBC 6.0 x10e3 /uL 3.4-10 .8 Not Available [facility] ([facility]) [address] [place], [address], 10/17/2024 09:08:16 10/17/1910/17/2024 CBC WITH DIFFE RENTI AL/PL ATELE T RBC 3.77 x10e6 /uL 3.77-5 .28 Not Available [facility] ([facility]) [address] [place], [address], 10/17/2024 09:08:16 10/17/1910/17/2024 CBC WITH DIFFE RENTI AL/PL ATELE T hemoglobin 12.2 g/dL 11.1-1 5.9 Not Available [facility] ([facility]) [address] [place], [address], 10/17/2024 09:08:16 10/17/1910/17/2024 CBC WITH DIFFE RENTI AL/PL ATELE T hematocrit 38.3 % 34.0-4 6.6 Not Available [facility] ([facility]) [address] [place], [address], 10/17/2024 09:08:16 10/17/1910/17/2024 CBC WITH DIFFE RENTI AL/PL ATELE T MCV 102 fL 79-97 above high normal Not Available [facility] ([facility]) [address] [place], [address], 10/17/2024 09:08:16 10/17/1910/17/2024 CBC WITH DIFFE RENTI AL/PL ATELE T MCH 32.4 pg 26.6-3 3.0 Not Available [facility] ([facility]) [address] [place], [address], 10/17/2024 09:08:16 10/17/1910/17/2024 CBC WITH DIFFE RENTI AL/PL ATELE T MCHC 31.9 g/dL 31.5-3 5.7 Not Available [facility] ([facility]) [address] [place], [address], 10/17/2024 09:08:16 10/17/19 25 10/17/2024 CBC WITH DIFFE RENTI AL/PL ATELE T RDW 13.2 % 11.7-1 5.4 Not Available [facility] ([facility]) [address] [place], [address], 10/17/2024 09:08:16 10/17/1910/17/2024 CBC WITH DIFFE RENTI AL/PL ATELE T platelets 263 x10e3 /uL 150-45 0 Not Available [facility] ([facility]) [address] [facility] [address], [place], [address], 10/17/2024 09:08:16 10/17/1910/17/2024 CBC WITH DIFFE RENTI AL/PL ATELE T neutrophils 53 % notest ab. Not Available [facility] ([facility]) [address] [facility] [address], [place], [address], 10/17/2024 09:08:16 10/17/1910/17/2024 CBC WITH DIFFE RENTI AL/PL ATELE T lymphs 36 % notest ab. Not Available [facility] ([facility]) [address], [place], [address], 10/17/2024 09:08:16 10/17/1910/17/2024 CBC WITH DIFFE RENTI AL/PL ATELE T monocytes 9 % notest ab. Not Available [facility] ([facility]) [address], [place], [address], 10/17/2024 09:08:16 10/17/1910/17/2024 CBC WITH DIFFE RENTI AL/PL ATELE T eos 1 % notest ab. Not Available [facility] ([facility]) [address], [place], [address], 10/17/2024 09:08:16 10/17/1910/17/2024 CBC WITH DIFFE RENTI AL/PL ATELE T basos 1 % notest ab. Not Available [facility] ([facility]) [address], [place], [address], 10/17/2024 09:08:16 10/17/19 25 10/17/2024 CBC WITH DIFFE RENTI AL/PL ATELE T neutrophils (absolute) 3.1 x10e3 /uL 1.4-7. 0 Not Available [facility] ([facility]) [address], [place], [address], 10/17/2024 09:08:16 10/17/19 25 10/17/2024 CBC WITH DIFFE RENTI AL/PL ATELE T lymphs (absolute) 2.2 x10e3 /uL 0.7-3. 1 Not Available [facility] ([facility]) [address], [place], [address], 10/17/2024 09:08:16 10/17/1910/17/2024 CBC WITH DIFFE RENTI AL/PL ATELE T monocytes(ab solute) 0.5 x10e3 /uL 0.1-0. 9 Not Available [facility] ([facility]) [address], [place], [address], 10/17/2024 09:08:16 10/17/1910/17/2024 CBC WITH DIFFE RENTI AL/PL ATELE T eos (absolute) 0.1 x10e3 /uL 0.0-0. 4 Not Available [facility] ([facility]) [address], [place], [address], 10/17/2024 09:08:16 10/17/1910/17/2024 CBC WITH DIFFE RENTI AL/PL ATELE T baso (absolute) 0.1 x10e3 /uL 0.0-0. 2 Not Available [facility] ([facility]) [address] [place], [address], 10/17/2024 09:08:16 10/17/1910/17/2024 CBC WITH DIFFE RENTI AL/PL ATELE T immature granulocytes 0 % notest ab. Not Available [facility] ([facility]) [address] [place], [address], 10/17/2024 09:08:16 10/17/19 25 10/17/2024 CBC WITH DIFFE RENTI AL/PL ATELE T immature grans (abs) 0.0 x10e3 /uL 0.0-0. 1 Not Available [facility] ([facility]) [address], [place], [address], 10/17/2024 09:08:16 11/03/19 24 11/02/2023 XR, chest , 2 view No observ ation record ed. [address], [place], [address], 11/03/2023 12:44:42 06/26/19 25 06/25/2024 XR, chest , 2 view No observ ation record ed. [place] [id number] [facility] [address], [place], [address], 06/25/2024 17:39:24 Result Notes None recorded. Problems Name Problem SNOMED Code Status Onset Date Resolution Date Notes Provider Name and Address Organization Details Recorded Time Brugada syndrome 143287294 Active 2015 s/p defibrila tor -sees cardio Nena Peña MD Attn: Radha cullen,[address], [place], [address], [facility] 7 14:42:31 Alcohol dependen ce 01544293 Active 2015 Nena Peña MD Attn: Radha cullen,[address], [place], [address], [facility] 6 14:33:14 Essentia l hyperten trinidad 93447676 Active 2015 Nena Peña MD Attn: Radha cullen,[address], [place], [address], [facility] 6 14:33:31 Malignan t neoplasm of skin 272319532 Completed 201602/19/2016 Nena Peña MD Attn: Radha cullen,[address], [place], [address], [place] [facility] 7 14:52:08 History of malignan t neoplasm of skin 906164448 Active 2016 Nena Peña MD Attn: Accountcarissa g,[address], [place], [address], [place] [facility] 7 14:52:03 Body mass index 20-24 - normal 569834661 Active 2023 TYREE Nicolas Attn: Accountin g,[address], [place], [address], [place] [facility] 5 23:10:56 Irritabl e bowel syndrome with diarrhea 294934402 Active 2023 TYREE Nicolas Attn: Accountcarissa g,[address] [facility], [place], [address], [place] [facility] 4 14:47:44 Benign essentia l hyperten trinidad 7714872 Active 2023 TYREE Nicolas Attn: Accountcarissa g,[address] [facility], [place], [address], [place] [facility] 4 14:47:48 Degenera tive disorder of macula 010062367 Active 2023 TYREE Nicolas Attn: Accountcarissa g,[address] [facility], [place], [address], [place] [facility] 4 14:48:00 Long-ter m drug therapy Active 2023 TYREE Nicolas Attn: Accountin g,[address] [facility], [place], [address], [place] [facility] 4 14:50:06 Generali zed anxiety disorder 90540614 Active 2023 TYREE Nicolas Attn: Accountin g,[address] [facility], [place], [address], [place] [facility] 4 23:55:18 Fall in home Active 2023 TYREE Nicolas Attn: Harshadcarissa cullen,[address], [place], [address], [place] [facility] 4 23:23:57 Age related macular degenera tion 247675317 Active 2024 TYREE Nicolas Attn: Harshadcarissa cullen,[address] [place], [address], [place] [facility] 5 16:47:36 Chronic insomnia 292310803 Active 2024 TYREE Nicolas Attn: Radha cullen,[address] [place], [address], [place] [facility] 5 23:10:54 Long-ter m current use of drug therapy 866981676 Active 2024 TYREE Nicolas Attn: Radha cullen,[address] [place], [address], [place] [facility] 5 23:11:41 Normal weight 79764932 Active 2024 TYREE Nicolas Attn: Radha alyse,[address] [place], [address], [place] [facility] 5 23:45:12 Benign paroxysm al position al vertigo 328990874 Active 2024 TYREE Nicolas Attn: Radha cullen,[address] [place], [address], [place] [facility] 5 23:45:29 Blood glucose outside referenc e range 382204619 Active 2024 TYREE Nicolas Attn: Radha alyse,[address] [place], [address], [place] [facility] 5 23:45:31 History of cardiac ablation for atrial fibrilla tion Active 2024 TYREE Nicolas Attn: Radha cullen,[address] [place], [address], [facility] 5 23:47:47 Automati c implanta ble cardiac defibril lator in situ 194933273 Active 2024 TYREE Nicolas Attn: Radha cullen,[address] [facility], [place], [address], [facility] 5 23:47:49 Notes:s/p defibrilator Problem Notes None recorded. Procedures Surgical History Date Name Laterality Status Provider Name and Address Organization Details Recorded Time 09/09/19 25 catheter ablation of tissue of heart completed Rosette Billings MA [facility] 09/19/2024 10:14:23 07/21/19 25 excision of malignant neoplasm completed Rosette Billings MA [facility] 07/20/2024 11:55:49 02/08/19 15 Colonoscopy with biopsy completed [facility] 12/19/2015 14:00:37 Appendectomy completed [facility] 14:03:43 Defibrillator completed [facility] 1 02/17/2015 14:03:50 Dilation and Curettage completed [facility] 12/19/2015 14:05:03 Imaging Results None recorded. Procedure Notes None recorded. Medical Equipment None Reported. Allergies Allergen ID Allergen Name Allergen Category Reaction Reaction Severity Criticality Documentation Date Start Date Code Code System Note Provider Name and Address Organization Details Recorded Time 790831 Phenergan medicatio n other severe high 11/26/2023 25816 8 RxNorm AGUSTO Solorzano, [facility] 4 09:52:18 429200 promethaz ine medicatio n other Not available low 09/19/20242023 8745 RxNorm Strok e like behav ior KLAUS Joaquin, [facility] 5 10:12:52 Medications Name Sig Start Date Stop Date [...] 24 hr Take 2 tabs po daily 09/19 completed Not Available Not Available Not Available diphenoxylat e-atropine 2.5 mg-0.025 mg tablet [...] Available lorazepam 0.5 mg tablet Take 1 tablet 3 times a day by oral route as needed. 2024 active Not Available Not Available Not Avai lable chlordiazepo xide 25 mg capsule 12/18 completed Not Available Not Available Not Available meclizine 25 mg tablet Take 1 tablet 3 times a day by oral route as needed, for vertigo. 2024 active Not Available Not Available Not Avai lable cephalexin 500 mg capsule 08/28 completed Not Available Not Available Not Available ondansetron 4 mg disintegrati ng tablet 12/18 completed Not Available Not Available Not Available amoxicillin 875 mg-potassium clavulanate 125 mg tablet Take 1 tablet every 12 hours by oral route. 09/19 completed Not Available Not Available Not Available nitrofuranto in monohydrate/ macrocrystal s 100 mg capsule Take 1 capsule every 12 hours by oral route. 08/28 completed Not Available Not Available Not Available Rozerem 8 mg tablet Take 1 tablet as needed by oral route at bedtime. 2024 active Not Available Not Available Not Avai lable Eliquis 5 mg tablet Take 1 tablet twice a day by oral route. active 3 mo Not Available Not Available No t Available Afluria Quad 8656-1190 (PF) 60 mcg/0.5 mL intramuscula r syringe 09/14 completed Not Available Not Available Not Available metoprolol succinate ER 50 mg capsule sprinkle, ext. release 24 hr Take 1 capsule 3 times a day by oral route. active Not Available Not Available No t Available Vitals Date Recorded Systolic And Diastolic Provider Name and Address Organization Details Last Updated DateTime 03/13/2024 140/80 mm[Hg] TYREE Nicolas Attn: Accounting,[address] [place], [address], [facility] 03/13/2024 16:45:30 Date Recorded Body height Body mass index (BMI) Body weight Respiratory rate Oxygen saturation Heart rate Systolic And Diastolic Provider Name and Address Organization Details Last Updated DateTime 5 154.94 cm 25.1 kg/m2 80621.7 9 g 18 /min 98 % 66 /min 136/80 mm[Hg] Rosette Billings MA [facility] 16:22:43 Date Recorded Respiratory rate Systolic And Diastolic Provider Name and Address Organization Details Last Updated DateTime 07/20/2024 18 /min 130/80 mm[Hg] TYREE Nicolas Attn: Accounting, [place], [address], [facility] 08/05/2024 23:04:14 Date Recorded Body height Body mass index (BMI) Body weight Oxygen saturation Heart rate Systolic And Diastolic Provider Name and Address Organization Details Last Updated DateTime 5 154.94 cm 23.4 kg/m2 79682.4 5 g 98 % 86 /min 142/80 mm[Hg] Rosette Billings MA [facility] 5 11:59:45 Date Recorded Systolic And Diastolic Provider Name and Address Organization Details Last Updated DateTime 09/20/2023 142/84 mm[Hg] TYREE Nicolas Attn: Accounting,[address] [place], [address], [facility] 09/20/2023 15:04:45 Date Recorded Body weight Body mass index (BMI) Body height Respiratory rate Heart rate Oxygen saturation Systolic And Diastolic Provider Name and Address Organization Details Last Updated DateTime 4 66627.7 g 24.3 kg/m2 154.94 cm 16 /min 73 /min 97 % 140/90 mm[Hg] Julianna Veronica [facility] 4 14:16:09 Date Recorded Respiratory rate Systolic And Diastolic Provider Name and Address Organization Details Last Updated DateTime 09/19/2024 18 /min 140/80 mm[Hg] TYREE Nicolas Attn: Accounting,[address] [place], [address], [facility] 09/19/2024 10:46:00 Date Recorded Body height Body mass index (BMI) Body weight Oxygen saturation Heart rate Systolic And Diastolic Provider Name and Address Organization Details Last Updated DateTime 5 154.94 cm 24.9 kg/m2 97325.1 9 g 99 % 86 /min 130/82 mm[Hg] Rosette Billings MA [facility] 5 10:16:59 Date Recorded Systolic And Diastolic Provider Name and Address Organization Details Last Updated DateTime 11/01/2023 138/88 mm[Hg] TYREE Nicolas Attn: Accounting,[address] [place], [address], [facility] 11/01/2023 17:47:39 Date Recorded Body height Body mass index (BMI) Body weight Respiratory rate Oxygen saturation Heart rate Systolic And Diastolic Provider Name and Address Organization Details Last Updated DateTime 4 154.94 cm 24.8 kg/m2 14818.9 6 g 18 /min 99 % 71 /min 146/90 mm[Hg] Rosette Billings MA [facility] 4 17:29:43 Social History Question Answer Notes LastModified by Organizat ion Details LastModified Time Tobacco Smoking Status Former Smoker Quit - 2009 Yamilex Mahi arriaga, [facility] 12/19/2015 14:18:22 Do You Have An Advance Directive? No [email or web address] Information not available 09/20/2023 Are You Blind Or Do You Have Difficulty Seeing? No [email or web address] Information not available 09/20/2023 What Is Your Level Of Caffeine Consumption? Heavy Tea & Coffee Information not available 12/19/2015 How Much Tobacco Do You Chew? None Information not available 12/19/2015 In The 14 Days Before Symptom Onset, Have You Had Close Contact With A Laboratory-confir med COVID-19 While That Case Was Ill? No [email or web address] Information not available 09/20/2023 In The 14 Days Before Symptom Onset, Have You Had Close Contact With A Person Who Is Under Investigation For COVID-19 While That Person Was Ill? No [email or web address] Information not available 09/20/2023 Have You Been To An Area Known To Be High Risk For COVID-19? No [email or web address] Information not available 09/20/2023 Are You Deaf Or Do You Have Serious Difficulty Hearing? No [email or web address] Information not available 09/20/2023 What Type Of Diet Are You Following? REGULAR Information not available 12/19/2015 Which Illicit Or Recreational Drugs Have You Used? Denies Information not available 12/19/2015 Marital Status Informatio n not available 12/19/2015 What Was The Date Of Your Most Recent Tobacco Screening? 09/19/2024 Information not available 09/19/2024 What Is Your Relationship Status? [email or web address] Information not available 09/20/2023 Do You Use Your Seat Belt Or Car Seat Routinely? Yes [email or web address] Information not available 09/20/2023 Do You Have Smoke And Carbon Monoxide Detectors In Your Home? Yes [email or web address] Information not available 09/20/2023 At What Age Did You Start Smoking Tobacco? 15 Information not available 12/19/2015 How Much Tobacco Do You Smoke? No Information not available 11/01/2023 General Stress Level Low Information not available 02/19/2016 Do You Use Sunscreen Routinely? Yes [email or web address] Information not available 09/20/2023 Has Tobacco Cessation Counseling Been Provided? Yes [email or web address] Information not available 09/20/2023 On What Date Was Tobacco Cessation Counseling Provided? 09/19/2024 Information not available 09/19/2024 How Many Years Have You Smoked Tobacco? 35 Information not available 12/19/2015 Sex: Female Functional Status Question Answer Note LastModified by Organizat ion Details LastModified Time Do you use any illicit or recreational drugs? No [email or web address] Information not available 09/20/2023 Do you or have you ever used any other forms of tobacco or nicotine? No [email or web address] Information not available 09/20/2023 What is your level of alcohol consumption? Moderate Information not available 12/19/2015 Are you currently employed? Yes [email or web address] Information not available 09/20/2023 Are you able to care for yourself independently? Yes [email or web address] Information not available 09/20/2023 What is your occupation? [employer] Information not available 07/30/2016 What is your exercise level? Heavy Information not available 07/30/2016 Mental Status None recorded. Family History Relationship Description Onset Age of this Age Resolved Age Notes LastModified by Organization Details LastModified Time Father Harmful pattern of use of alcohol Not available 2015 13:58:15 Father Malignant neoplasm of colon Not available 2015 13:58:38 Medical [...] pneumococcal polysaccharide PPV23 7 completed Not Available [facility] 02/25/2019 02:33:05 influenza, unspecified formulation 4 completed [...] dose or 50 mcg/0.25mL dose 2 completed Rosette Billings [place], [place] - [...] syncytial virus (RSV) MAB, unspecified 5 completed Rosette Billings [place], [place] [facility] 03/13/2024 16:15:25 COVID-19, mRNA, LNP-S, PF, lawrence-sucrose, 30 mcg/0.3 mL 4 completed Not Available [facility] 09/19/2024 09:58:52 COVID-19, mRNA, LNP-S, PF, lawrence-sucrose, 30 mcg/0.3 mL 5 completed Not Available [facility] 09/19/2024 09:58:52 Pneumococcal conjugate PCV20, polysaccharide [id number] conjugate, adjuvant, PF 5 completed Not Available [facility] 09/19/2024 09:58:52 tetanus toxoid, unspecified formulation 5 completed Yamilex Mahi arriaga, [place] [facility] 12/19/2015 13:59:57 influenza, unspecified formulation 6 completed Yamilex arriaga, [place] [facility] 12/19/2015 14:16:52 Past Encounters Encounter ID Performer Location Encounter Start Date Encounter Closed Date Diagnosis/Indication Diagnosis SNOMED-CT Code Diagnosis ICD10 Code Diagnosis IMO Codes Diagnosis Note [id number] [facility] [address] [place] [address] 12/19/2015 13:51:16 12/19/2015 15:12:20 Brugada syndrome 135724556 I45.89 s/p defibrilat orpt wants to wait for cardiology eval due lack of insurance Alcohol dependence 18629 003 F10.20 informatio n given to go for AA meetingpt to cut down slowly Essential hypertension 77640002 I10 not welll controlled due to noncomplia nt with med and anxiety -pt declined to take med for anxietypt to take metoprolol as prescribed [id number] [facility] [address] [place] [address] 02/19/2016 14:27:38 02/19/2016 15:14:43 Essential hypertension 14912725 I10 stablept to take metoprolol as prescribed Brugada syndrome 7180341 05 I45.89 s/p defibrilat orpt wants to see cardio -pt to call if she needs referral Administra tion of pneumococcal vaccine 75685511 Z23 [id number] [facility] [address] [place] [address] 07/30/2016 11:23:19 07/30/2016 15:15:17 Essential hypertension 79949872 I10 stablept to take metoprolol as prescribed Screening mammography 24 030167 Z12.31 pt seen by [employer] in the past per pt Brugada syndrome 3533193 05 I45.89 s/p defibrilat orRefer to cardio [id number] Nena Peña MD [facility] (Adult Med) [address] [place] [address] 02/04/2017 12:07:29 02/04/2017 17:49:08 Essential hypertension 88008117 I10 stablept to take metoprolol as prescribed Brugada syndrome 2489366 05 I45.89 s/p defibrilat orpt to f/u with cardio cardio Screening mammography 24 948927 Z12.31 pt seen by [facility] [facility] in the [place] new [employer] with [facility] ( pt has h/o breast implant ) [id number] Pablo Mercado MD [facility] [employer] [facility] Zeeshan Black [address] [place] [address] 09/20/2023 14:04:25 09/20/2023 15:26:50 Body mass index 20-24 - normal 489573780 Z68.24 BMI is 24.3 History of malignant neoplasm of skin 595201044 Z85.828 Refer to new dermatolog ist to establish care and routine checks with history of skin cancers. Patient would like to establish with a local provider. Brugada syndrome 2713790 05 I49.8 pt takes metoprolol succ ER 100mg daily and sees DR. Garza and Also electrophy siologist Dr. Dobson Benign ess ential hypertension 8957238 I10 Blood pressure is 142/84 today on exam. This is slightly above goal range but patient is stable on metoprolol ER 100 mg 2 tablets p.o. daily Irritable bowel syndrome with diarrhea 976998095 K58.0 Patient is stable on p.r.n. use of Lomotil as directed Degenerati ve disorder of macula 991481543 H35.30 Patient reports a diagnosis of macular degenerati on and she is up-to-date with [facility] Generalize d anxiety disorder 12675873 F41.1 Patient is stable on lorazepam 0.5 mg 3 times daily on an as-needed only basis. Long-term drug therapy 717010730 Z79.899 Routine CBC, metabolic panel, liver function and thyroid panels are due Diabetes m ellitus screening 455036622 Z13.1 Screening A1c for diabetes risk assessment is due Cholesterol screening 27 4479894 Z13.220 Fasting lipid panel is due [id number] Pablo Mercado MD [facility] [employer] [address] [place] [address] 11/01/2023 16:45:27 11/01/2023 17:53:45 Contusion of left chest wall 8528839759 8339746 S20.212A Refer for chest x-ray and left-sided rib x-rays to rule out fracture Rib pain 321282677 R07.8 1 Tylenol No. 3 with codeine given for rib pain suspected fracture. Do not dose with lorazepam these must be by several hours Fall in home 34111538 Y9 2.009 Fall in her bedroom in the middle of the night when she was getting up and had a little dizziness and was trying to stabilize herself but she fell striking the left side of her torso [id number] Pablo Mercado MD [facility] [employer] [address] [place] [address] 03/13/2024 15:55:19 03/13/2024 17:08:01 Benign essential hypertension 1352863 I10 Blood pressure is 142/84 today on exam. This is slightly above goal range but patient is stable on metoprolol ER 100 mg 2 tablets p.o. daily Generalize d anxiety disorder 47262845 F41.1 Patient is stable on lorazepam 0.5 mg 3 times daily on an as-needed only basis. Irritable bowel syndrome with diarrhea 015828419 K58.0 Patient is stable on p.r.n. use of Lomotil as directed Brugada syndrome 1747415 05 I49.8 pt takes metoprolol succ ER 100mg daily and sees DR. Garza and Also electrophy siologist Dr. Dobson Body mass index 20-24 - normal 280700048 Z68.24 BMI is 24.3 History of malignant neoplasm of skin 311973297 Z85.828 Patient follows routinely with her dermatolog ist Degenerati ve disorder of macula 706456091 H35.30 Patient reports a diagnosis of macular degenerati on and she is up-to-date with her ophthalmol ogmeche appointmen ts Long-term drug therapy 441988888 Z79.899 Routine CBC, metabolic panel, liver function and thyroid panels are due Diabetes m ellitus screening 223929640 Z13.1 Screening A1c for diabetes risk assessment is due Cholesterol screening 27 7617985 Z13.220 Fasting lipid panel is due Adult heal th examination 899367849 Z00.01 Annual wellness exam completed [id number] Pablo Mercado MD [facility] [employer] [address] [place] [address] 07/20/2024 11:36:42 07/20/2024 14:02:58 Body mass index 20-24 - normal 613320758 Z68.23 48378038 BMI is 23.5 Chronic insomnia 5865220 04 F51.04 060195 Prescripti on for Rozerem 8 mg q.h.s. p.r.n. which worked in the hospital for her instead of using lorazepam Benign ess ential hypertension 0370009 I10 stable on metoprolol ER 100 mg 2 tablets p.o. daily Brugada syndrome 0518323 05 I49.8 pt takes metoprolol succ ER 100mg daily and sees DR. Garza and Also electrophy siologist Dr. Dobson Long-term current use of drug therapy 636771301 Z79.899 87335081 [id number] Pablo Mercado MD [facility] [employer] [address] [place] [address] 09/19/2024 09:57:27 09/19/2024 11:22:06 Normal weight 67634630 Z68.24 7280252584 Normal BMI Benign ess ential hypertension 5013010 I10 stable on metoprolol ER 50mg Three daily. Brugada syndrome 7877544 05 I49.8 pt takes metoprolol succ ER 100mg daily and sees DR. Garza and Also electrophy siologist Dr. Dobson Generalize d anxiety disorder 10471850 F41.1 Patient is stable on lorazepam 0.5 mg 3 times daily on an as-needed only basis. Dose will not be increased to 1 mg tablet size. Patient has been made aware of this being the maximum amount of dosing prescripti on Irritable bowel syndrome with diarrhea 562158079 K58.0 Patient is stable on p.r.n. use of Lomotil as directed. Upcoming colonoscop y is due in December. 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 She would like to have a few vitamin labs checked will add magnesium and B12 and folate to her lab order Blood gluc ose outside reference range 551440102 R73.09 [id number] Previously A1c was 5.8%. She is due for updated labs Benign par oxysmal positional vertigo 148616021 H81.13 62086739 Patient reports that she needs a refill on her meclizine for her paroxysmal vertigo that does occur at times. History of cardiac ablation for atrial fibrillation 7713889210 7106 Z98.890 I48.91 5991696267 Patient is stable doing well status post cardiac ablation at the beginning of September. She is currently still anticoagul ated with Eliquis 5 mg twice daily Automatic implantable cardiac defibrillator in situ 730387980 Z95.810 12235812 History of ICD implanted has been interrogat ed recently with no acute issues Health Concerns Section Related Observation LastModified by Organization Detai ls LastModified Time None Recorded Concern Status LastModified by Organization Details LastModified Time None Recorded Advance Directives Directive N: Payers Insurance Date Sequence Insurance Name Policy Number Policy Kurtz Covered Member ID Kurtz Member ID Guarantor Name 10/10/2024 1 [facility] (MEDICARE REPLACEMENT/A DVANTAGE - PPO) [id number] Lynn Doe [id number] Lynn Doe 02/19/2016 SLIDING FEE SCHEDULE - DISCOUNT Lynn Doe 02/19/2016 1 *SELF PAY* Indigo Doe 09/20/2023 1 [place] [id number] Lynn Doe [id number] Lynn Doe Notes Date Note Type Note Provider Name and Address Organization Details Recorded Time 4 text/html HypertensionReported by PatientHPIFor duration, patient reportshas noted for years. For onset/timing, patient reportsbetter. For alleviating factors, patient reportsmedication. For associated symptoms, patient reportsno shortness of breath,no fatigue,no palpitations,no decline in exercise capacity, andno snoring. Anxiety/DepressionReporte d by PatientPatient is stable on lorazepam 0.5 mg t.i.d. on a p.r.n. basis only Irritable bowel syndrome with diarrhea-patient has a [...] and is due for referral to new railroad passenger agent. Patient reports macular degeneration noted on recent eye exam Patient is due for all routine labs TYREE Nicolas Attn: Accounting,[address], [place], [address], [facility] 10/07/2023 23:56:35 4 text/html Pt, states that she is in pain states that she had a fall she did something to her rib, under her breast into her side of the stomach, states that it started with vertigo, states that she landed on her left side. It has been about 2 1/2 weeks now sometimes leading to back pain also TYREE Nicolas Attn: Accounting,[address] [facility], [place], [address], [facility] 11/08/2023 23:24:28 5 text/html HypertensionReported by PatientHPIFor duration, patient reportshas noted for years. For onset/timing, patient reportsbetter. For alleviating factors, patient reportsmedication. For associated symptoms, patient reportsno shortness of breath,no fatigue,no palpitations,no decline in exercise capacity, andno snoring. Anxiety/DepressionReporte d by PatientPatient is stable on lorazepam 0.5 mg t.i.d. on a p.r.n. basis only Irritable bowel syndrome with diarrhea-patient has a [...] and is due for referral to new railroad passenger agent. Patient reports macular degeneration noted on recent eye exam TYREE Nicolas Attn: Accounting,[address], [place], [address], [facility] 04/02/2024 13:48:36 5 text/html HypertensionReported by PatientHPIFor duration, patient reportshas noted for years. For onset/timing, patient reportsbetter. For alleviating factors, patient reportsmedication. For associated symptoms, patient reportsno shortness of breath,no fatigue,no palpitations,no decline in exercise capacity, andno snoring. Anxiety/DepressionReporte d by PatientPatient is stable on lorazepam 0.5 mg t.i.d. on a p.r.n. basis only Irritable bowel syndrome with diarrhea-patient has a chronic history of this condition and does take Lomotil on a p.r.n. basis. She has previously been evaluated and worked up by Gastroenterology. There are no acute changes to her IBS-D History of Brugada syndrome-patient follows with Cardiology for annual visits and is stable.Patient recently went into the hospital when her heart rhythm was off. She had been drinking after high levels of stress and after extended timeframe of sobriety. See ER report which has been reviewed. Complaint today is that she is having significant insomnia and had in the hospital Rozerem which helped her to sleep and she is interested in getting a prescription to use on an as-needed basis at home instead of relying on the lorazepam TYREE Nicolas Attn: Accounting,[address], [place], [address], [facility] 08/05/2024 23:12:01 08/12/202 5 text/html HypertensionReported by PatientHPIFor duration, patient reportshas noted for years. For onset/timing, patient reportsbetter. For alleviating factors, patient reportsmedication. For associated symptoms, patient reportsno shortness of breath,no fatigue,no palpitations,no decline in exercise capacity, andno snoring. Anxiety/DepressionReporte d by PatientPatient is stable on lorazepam 0.5 mg t.i.d. on a p.r.n. basis only. She was wanting to have her dose increased on her lorazepam. On September 08, 2024 the patient underwent a POLST filled catheter ablation for persistent atrial fibrillation/pulmonary vein isolation linear/focal left atrial ablation. She saw her contact lens inspector in follow-up and had been doing very well there was no atrial fibrillation on her device interrogation at her follow-up. Her heart rhythm has remained sinus.. She does have the underlying Brugada syndrome. She is also remote history status post placement of a dual-chamber ICD. It was interrogated and is functioning appropriately with no programming changes made. She will follow with the arrhythmia Center device clinic remotely and in office as needed. She was also anticoagulated on Eliquis 5 mg twice daily. Irritable bowel syndrome with diarrhea-patient has a chronic history of this condition and does take Lomotil on a p.r.n. basis. She has previously been evaluated and worked up by Gastroenterology. There are no acute changes to her IBS-D TYREE Nicolas Attn: Accounting,[address], [place], [address], [facility] 10/07/2024 23:48:41 OBGyn Episode No OBEpisode recorded.
--- OUTSIDE RECORDS SUMMARY | 2025-01-02 00:35 | XMS_ITS | Clinical Summary ---
[facility] Organization [facility] Address [address] Calixn: Epic Prelude ADT [place] [address] Care Team Providers Care Manager Renewable Energy Name Role Phone Unavailable Primary Care Provider Unavailabl e Allergies No known active allergies Medications acetaminophen-c odeine (TYLENOL #3) 300-30 mg tablet Take 1 Tablet by mouth every 8 hours as needed. 15 Tablet 08/18/2021 6:53 PM CDT 2 Active moxifloxacin (Vigamox) 0.5 % solution INSTILL 1 DROP INTO AFFECTED EYE(S) BY OPHTHALMIC ROUTE 3 TIMES PER DAY 3 mL 02/16/2022 10:51 AM FIBER HEEL PIECE SHAPER 3 Active metoprolol succinate (TOPROL XL) 100 mg Extended Release 24 hour tablet Take 1 tablet (100 mg total) by mouth 2 (two) times a day 60 Tablet 3 Active diphenoxylate-a tropine 2.5 mg-0.025 mg tablet Take 1 Tablet by mouth 4 times daily as needed. 30 Tablet 2 07/15/2022 10:02 AM CDT 3 Active LORazepam (ATIVAN) 0.5 mg tablet Take 1 Tablet (0.5 mg) by mouth 3 times daily as needed. 90 Tablet 3 11/19/2022 3:40 PM CDT 3 Active diphenoxylate-a tropine 2.5 mg-0.025 mg tablet Take 1 Tablet [...] for nausea. 30 Tablet 02/05/2023 12:12 PM FIBER HEEL PIECE SHAPER 3 Active HYDROcodone-ivory taminophen (NORCO) 5-325 mg tablet Take 1 Tablet by mouth every 6 hours as needed for pain 30 Tablet 02/05/2023 12:12 PM FIBER HEEL PIECE SHAPER 3 Active LORazepam (ATIVAN) 0.5 mg tablet Take 1 Tablet (0.5 mg) by mouth 3 times daily as needed. 90 Tablet 04/02/2023 3:19 PM FIBER HEEL PIECE SHAPER 4 Active nitrofurantoin (Macrobid) 100 mg capsule Take 1 Capsule (100 mg) by mouth 2 times daily. 14 Capsule 04/30/2023 11:21 AM CDT 4 Active metoprolol succinate (TOPROL XL) 100 mg Extended Release 24 hour tablet Take 2 Tablets (200 mg) by mouth daily. 60 Tablet 1 10/31/2023 12:59 PM CDT 4 Active acetaminophen-c odeine (TYLENOL #3) 300-30 mg tablet Take 1 Tablet by mouth every 8 hours as needed for rib pain. DO NOT DOSE WITH LORAZEPAM 21 Tablet 11/01/2023 5:13 PM CDT 4 Active LORazepam (ATIVAN) 0.5 mg tablet Take 1 Tablet (0.5 mg) by mouth 3 times daily as needed. 90 Tablet 01/28/2024 3:11 PM FIBER HEEL PIECE SHAPER 4 Active ofloxacin (OCUFLOX) 0.3 % solution INSTILL ONE DROP INTO BOTH EYES NEEDED 5 mL 03/09/2024 3:10 PM FIBER HEEL PIECE SHAPER 5 Active LORazepam (ATIVAN) 0.5 mg tablet Take 1 Tablet (0.5 mg) by mouth 3 times daily as needed. 90 Tablet 03/25/2024 11:22 AM FIBER HEEL PIECE SHAPER 5 Active ramelteon (Rozerem) 8 mg Tablet Take 1 Tablet (8 mg) by mouth daily at bedtime. 30 Tablet 3 07/21/2024 1:04 PM CDT 5 Active LORazepam (ATIVAN) 0.5 mg tablet Take 1 Tablet (0.5 mg) by mouth 3 times daily as needed. 90 Tablet 3 08/28/2024 12:48 PM CDT 5 Active apixaban (Eliquis) 5 mg tablet Take 1 Tablet (5 mg) by mouth 2 times daily. 60 Tablet 1 10/12/2024 2:40 PM CDT 5 Active LORazepam (ATIVAN) 0.5 mg tablet Take 1 Tablet (0.5 mg) by mouth 3 times daily as needed. 90 Tablet 4 12/11/2024 1:28 PM FIBER HEEL PIECE SHAPER 5 Active meclizine (ANTIVERT) 25 mg tablet Take 1 Tablet (25 mg) by mouth 3 times daily as needed for vertigo 30 Tablet 09/19/2024 11:35 AM CDT 5 Active diphenoxylate-a tropine 2.5-0.025 mg tablet Take 1 Tablet by mouth 3 times daily as needed. 90 Tablet 3 12/27/2024 2:01 PM FIBER HEEL PIECE SHAPER 5 Active metoprolol succinate (TOPROL XL) 100 mg Extended Release 24 hour tablet Take 1 tablet (100 mg total) by mouth daily 30 Tablet 11 12/01/2024 2:57 PM CDT 5 Active Encounters Date Type Department Care Team Description 10/17/2024 External Device Data STL ABSTRACTION Provider, Abstract from Last 3 Months Immunizations Immunization Administration Dates Next Due (AREXVY)(60 [...] 2002 OSTEOPOROSIS SCREENING 2017 INFLUENZA VACCINE (#1) 2024 RSV VACCINE (60+ or ) Completed 02/24/2024 Insurance RX [employer] RX Member Subscriber Plan / Payer (Ef fective for All Dates) Name:LYNN RIZZO Relation to Subscriber:Self Name:Lynn Rizzo Payer ID:Not on file Group ID:[id number] Type:RX Medicare Part D Address: C[place] M[place]INEZ RX [employer] PLANS (INTERNAL) [facility]
--- OUTSIDE RECORDS SUMMARY | 2025-01-02 00:35 | XMS_ITS | Clinical Summary ---
Author Organization [facility] Address [address] [place] [address] Care Team Providers Care Manager Chemistry Name Role Phone Pablo Garza MD Unavailable [phone] Earnestine Landry Primary Care Pr ovider Allergies Active Allergy Reactions Criticality Noted Date Comments Promethazine Other (See comments) Low 09/23/2023 Stroke like behavior Medications LORazepam (ATIVAN) 0.5 mg tablet Take 1 tablet (0.5 mg total) by mouth every 6 (six) hours as needed 03/20/2020 Active acetaminophen (TYLENOL) 500 mg tablet Take 1 tablet (500 mg total) by mouth every 6 (six) hours as needed for pain Active diphenoxylate-a tropine (LOMOTIL) 2.5-0.025 mg per tablet Take 1 tablet by mouth 3 (three) times a day as needed for diarrhea 03/03/2023 Active vit A/vit C/vit E/zinc/copper (PRESERVISION AREDS ORAL) Take 1 tablet by mouth daily Active vitamin b complex tablet Take 1 tablet by mouth daily Active MAGNESIUM ORAL Take 1 tablet by mouth daily Active apixaban (ELIQUIS) 5 mg tablet Take 1 tablet (5 mg total) by mouth 2 (two) times a day 60 tablet 1 09/08/2024 Active metoprolol XL (TOPROL-XL) 100 mg 24 hr tablet Take 1 tablet (100 mg total) by mouth daily 30 tablet 11 12/01/2024 12/02/19 26 Active Active Problems Problem Noted Date Diagnosed Date Shock, electric, initial encounter 06/25/2024 Paroxysmal atrial fibrillation 12/06/2021 Assessment & Plan (07/16/2024 11:54 AM CDT): She is highly symptomatic paroxysmal atrial fibrillation that has resulted in inappropriate shocks from her device. While her overall burden of atrial arrhythmia is very low, this has been a source of considerable anxiety, and she would like to undergo catheter ablation for her atrial fibrillation. We discussed the rationale for atrial fibrillation ablation, including the steps involved in ablation. I detailed the risks of the procedure, including vascular injury/hematoma, myocardial injury/perforation, stroke, and myocardial infarction. With pulse field ablation, which I intend to perform, other complication such as pulmonary vein stenosis, thermal esophageal injury, phrenic nerve injury are much less common. I estimated a 80% chance of freedom from long-term atrial arrhythmia, and the patient understands that occasionally a second procedure is necessary. The patient has a [id number] score of 2. She understands that she will need to be anticoagulated for 2-3 months following ablation. She also understands that her atrial arrhythmia may recur in the presence of alcohol use, regardless of whether or not ablation was judged to be successful. She assures me that she is committed to abstaining from alcohol use for the future. My office will make the appropriate arrangements. From: February, Paul LS, Barbra JS, Martha H, Jose ERIK, Cata JE, Fabio SHRADDHA, Gage PT, Umer BURGESS, Field ALLAN, Richard KT, Saskia RL, Juvenal WG, Ayesha PJ, Roxanne CM, Kacy CW. 2014 AHA/ACC/HRS guideline for the management of patients with atrial fibrillation: a report of the [place] College of Cardiology/[place] Heart Association Task Force on Practice Guidelines and the Heart Rhythm Society. J Am Danya Cardiol 2014. 6.3. AF Catheter Ablation to Maintain Sinus Rhythm: Recommendations Class IIA. In patients with recurrent symptomatic paroxysmal AF, catheter ablation is a reasonable initial rhythm control strategy prior to therapeutic trials of antiarrhythmic drug therapy, after weighing risks and outcomes of drug and ablation therapy ([phone]). (Level of Evidence: B) Assessment & Plan (12/06/2021 12:53 PM CDT): [...] 08/24/2016 Assessment & Plan (03/14/2023 1:00 PM DEPOSIT CLERK): Brugada syndrome, status post ICD. No recent [...] possible, and in-office device checks when necessary. AICD (automatic cardioverter/defibrillator) pres ent 08/20/2016 Overview (01/28/2017): Medtronic Evera MRI XT implanted 09/23/2016 + atrial lead, RV lead is chronic from 10/26/2008, for NICM (brugada syndrome)/EQC-Xwqchdy-Gumqy-Faralink Assessment & Plan (07/16/2024 11:52 AM CDT): Status post ICD for secondary prevention of sudden cardiac arrest. The patient's device was interrogated and found to be functioning appropriately. No substantial changes to programming were made. The patient is enrolled in the [facility] Device [facility], and we will continue to follow with remote monitoring when possible, and in-office device checks when necessary. Assessment & Plan (04/28/2024 1:41 PM CDT): [...] ECG. Assessment & Plan (03/11/2023 4:48 PM DEPOSIT CLERK): Brugada syndrome, status post dual-chamber defibrillator. She [...] Encounters Date Type Department Care Team Description 01/01/2025 Telephone Ar[facility]hythmia Center [address] [place] [address] Barbara Mata NP 12/28/2024 Telephone [facility] Cardiology [address] [place] [address] Pablo Garza MD CARDIAC CLEARANCE 12/01/2024 10:30 AM CDT Office Visit Arrhythmia Center [address] [place] [address] Barbara Mata NP Cardiac arrhythmia, unspecified cardiac arrhythmia type (Primary Dx) 12/01/2024 10:00 AM CDT Ancillary Procedure Ar[facility]hythmia Center [address] [place] [phone] Automatic implantable cardiac defibrillator in situ (Primary Dx); AICD (automatic cardioverter/defibril lator) present 10/05/2024 10:15 AM CDT Office Visit Ar[facility]hythmia Center [address] [place] [address] Barbara Mata NP Cardiac arrhythmia, unspecified cardiac arrhythmia type (Primary Dx); AICD (automatic cardioverter/defibril lator) present 10/05/2024 10:00 AM CDT Ancillary Procedure [facility] [address] [place] [phone] Brugada syndrome (Primary Dx); AICD (automatic cardioverter/defibril lator) present from Last 3 Months Surgical History Surgery Date Site/Laterality Comments INSERT / REPLACE / REMOVE PACEMAKER TUBAL LIGATION CARDIAC ELECTROPHYSIOLOGY PROCEDURE 09/08/2024 N/A Procedure: ABLATION ATRIAL FIBRILLATION (A-FIB) VIA PULMONARY VEIN ISOLATION [id number]; Surgeon: Petr Hendrickson MD; Location: [facility] CARDIAC ASSISTANT COUNSEL; Service: Cardiovascular; Laterality: N/A; Medical devices from this surgery are in the Medical Devices section. CARDIAC ELECTROPHYSIOLOGY PROCEDURE 09/08/2024 N/A Procedure: ABLATION ATRIAL FIBRILLATION ADDITIONAL LINE OR FOCI (+) [id number]; Surgeon: Petr Hendrickson MD; Location: [facility] CARDIAC ASSISTANT COUNSEL; Service: Cardiovascular; Laterality: N/A; Medical devices from this surgery are in the Medical Devices section. CARDIAC CATHETERIZATION 09/08/2024 N/A Procedure: ULTRASOUND GUIDANCE FOR VASCULAR ACCESS S&I [id number]; Surgeon: Petr Hendrickson MD; Location: [facility] CARDIAC ASSISTANT COUNSEL; Service: Cardiovascular; Laterality: N/A; Medical devices from this surgery are in the Medical Devices section. Medical History Medical History Date Comments Chest [...] and Family Not on file 11/01/2019 Attends [employer] Not on file 10/31 Active Member [...] Anes PTL Dona A1 A5 Name Clin 1982 Para Vag-Spo nt 1984 Para Vag-Spo nt 1987 Para Vag-Spo nt 1989 Para Vag-Spo nt 1993 Para Vag-Spo nt Last Filed Vital Signs Vital Sign Reading Time Taken Comments Blood Pressure 118/64 12/01/2024 10:41 AM CDT Pulse 65 12/01/2024 10:41 AM CDT Temperature 36.8 C (98.2 F) 09/08/2024 1:15 PM CDT Respiratory Rate 15 09/08/2024 2:00 PM CDT Oxygen Saturation 96% 09/08/2024 2:00 PM CDT Inhaled Oxygen Concentration - - Weight 60.8 kg (134 lb) 12/01/2024 10:41 AM CDT Height 154.9 cm (5' 1) 12/01/2024 10:41 AM CDT Body Mass Index 25.32 12/01/2024 10:41 AM CDT Plan of Treatment Health Maintenance Due Date Last Done Comments Breast Cancer Screening-Mammogram 1952 Colon Cancer Screening-Colonoscopy 1950 Depression Screening 1952 Hepatitis C Screening 1950 Osteoporosis Screening-Bone Density Scan 1952 Hepatitis B Screening 1970 Zoster Vaccine (1 of 2) 2002 02/08/2015 DTaP/Tdap/Td Vaccine (1 - Tdap) 02/09/2014 5 Pneumococcal vaccine 65+ (2 of 2 - PCV) 02/18/2017 02/19/2016, 02/09/2016 Well Visit 65+ 10/31/2020 11/01/2019 Covid-19 Vaccine (5 - 2024-2 6 season) 2024 05/18/2021, 12/08/2020, 04/20/2020, Additional history exists Influenza Vaccine (#1) 2024 , 02/08/2017, 10/10/2015 Fall Risk Assessment 06/27/2025 06/27/2024 Medical Devices Implanted Type Area Sas Architect Device Identifier Shelf Expiration Date Model / Serial / Lot Icd-10/26/2008 Implanted:10/26 (Quantity not on file) ICD Chest Medtronic non ischemic [email or web address] Device Vascular Closure Vascade Mvp Xl 10-12fr Venous Strl [id number] - [id number] - [id number] Implanted:Qty: 1 on 09/08/2024 by Petr Hendrickson MD at [facility] [employer] 06/16/2026 [id number] / [id number] / [id number] [employer] Vascade Mvp 6-12fr Venous Closure [id number] - [id number] - [id number] Implanted:Qty: 1 on 09/08/2024 by Petr Hendrickson MD at [facility] [employer] 07/04/2026 [id number] / [id number] / [id number] [employer] Vascade Mvp 6-12fr Venous Closure [id number] - [id number] - [id number] Implanted:Qty: 1 on 09/08/2024 by Petr Hendrickson MD at [facility] [employer] 07/04/2026 800-612C-10 U / [id number] / [id number] Procedures Procedure Name Priority Date/Time Associated Diagnosis Comments ECG 12-LEAD Routine 12/01/2024 10:42 AM CDT Cardiac arrhythmia, unspecified cardiac arrhythmia type DEVICE CHECK - IN OFFICE Routine 12/01/2024 10:02 AM CDT AICD (automatic cardioverter/defibri llator) present ECG 12-LEAD Routine 10/05/2024 10:38 AM CDT Cardiac arrhythmia, unspecified cardiac arrhythmia type DEVICE CHECK - IN OFFICE Routine 10/05/2024 10:13 AM CDT AICD (automatic cardioverter/defibri llator) present from Last 3 Months Results * ECG 12 lead (12/01/2024 10:42 AM CDT) Barbara Mata NP ECG ORDERABLES Final Resu lt * DEVICE CHECK - IN OFFICE (12/01/2024 10:02 AM CDT) Anatomical Region Laterality Modality Other Narrative 12/07/2024 1:01 PM CDT Table formatting from the original result was not included. ICD CHECK (IN OFFICE) Patient ID: Lynn Doe is a 74 y.o. female. This patient received a Medtronic ICD. They had a routine in office device interrogation on 12/01/24 Device implant indications: Nonischemic dilated cardiomyopathy, Brugada syndrome, sick sinus syndrome Interrogation of the patient's device demonstrates the following: Presenting EGM: A paced V sensed @ 80 bpm Underlying Rhythm: A sensed V sensed at a rate of 53 beats per minute Original Device Settings Right Atrium Right Ventricle Sensitivity (mV) 0.3 mV 0.3 mV Pacing Outputs 1.5 V @ 0.4 ms 2.0 V @ 0.4 ms Testing Measurements Right Atrium Right Ventricle Sensitivity (mV) 3.1 mV 10.5 mV Impedence (Ohms) 437 ohms 589 ohms High Voltage Impedence 72 ohms Pace Threshold 0.5 V @ 0.4 ms 0.875 V @ 0.4 ms Pacing % 72.1 % Less than 0.1 % Battery Status: 1.6 years to BALDEMAR with Charge Time 7.8 seconds Episodes last 90 days/Comments: AF [place] 0%, longest duration0 NORMAL DEVICE FUNCTION PROGRAMMED MEDICATIONS: Anti-coagulant(s): Eliquis 5 mg twice daily Anti-arrhythmic(s): Toprol-XL 150 mg daily PLAN: 1) Medtronic ICD evaluation. 2) Medtronic remote transmission scheduled in 3 months. 3) Programming appropriate for device measurements Kb Velasquez RN us Petr Hendrickson MD CV CARDIAC SERVICES PRO CEDURES Final Result * ECG 12 lead (10/05/2024 10:38 AM CDT) us Barbara Mata NP ECG ORDERABLES Final Resu lt * DEVICE CHECK - IN OFFICE (10/05/2024 10:13 AM CDT) Anatomical Region Laterality Modality Other Narrative 10/07/2024 2:39 PM CDT Table formatting from the original result was not included. ICD CHECK (IN OFFICE) Patient ID: Lynn Doe is a 74 y.o. female. This patient received a Medtronic ICD. They had a routine in office device interrogation on 10/05/24 Device implant indications: Nonischemic cardiomyopathy, SSS Interrogation of the patient's device demonstrates the following: Presenting EGM: A paced V sensed @ 67 bpm Underlying Rhythm: A sense V sense @ 48 bpm Original Device Settings Right Atrium Right Ventricle Sensitivity (mV) 0.3 mV 0.3 mV Pacing Outputs 1.5 V @ 0.4 ms 2.0 V @ 0.4 ms Testing Measurements Right Atrium Right Ventricle Sensitivity (mV) 3.5 mV 11.1 mV Impedence (Ohms) 494 ohms 570 ohms High Voltage Impedence 58 ohms Pace Threshold 0.75 V @ 0.4 ms 0.75 V @ 0.4 ms Pacing % 78 % 0.1 % Battery Status: 18 months to BALDEMAR with Charge Time 7.8 seconds Episodes last 90 days/Comments: AF [place] 0% No ventricular high rates NORMAL DEVICE FUNCTION PROGRAMMED MEDICATIONS: Anti-coagulant(s): Eliquis 5 mg twice daily Anti-arrhythmic(s): Toprol 150 mg daily PLAN: 1) Medtronic ICD evaluation. 2) Medtronic remote transmission scheduled in 3 months. 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
[2025-01-02 09:13] VITALS: BP 119/75; PULSE 83; RESP 16; TEMP 35.9; O2SAT 100; BMI 23.9
[2025-01-02] MEDS: LACTATED RINGERS 1,000 ML 150 ML IV CONT (09:21)
--- NOTE | 2025-01-02 10:20 | PM.IMHP ---
H&P: HPI History of Present Illness Date/Time: 01/02/25 10:20 Chief Complaint: Family history of colon cancer Narrative: This is a 74-year-old woman who presents for colonoscopy. Her last colonoscopy was 5 years ago. She has a family history of colon cancer her father she denies any hematochezia or melena. Review of Systems Review of Systems: All systems reviewed & are unremarkable except as noted in HPI and below Constitutional: Constitutional: Denies chills, Denies fever(s), Denies headache(s) and Denies weight loss Eyes: Eyes: Denies change in vision ENT: Denies dizziness, Denies headache(s), Denies neck mass and Denies throat swelling Cardiovascular: Cardiovascular: Denies chest pain, Denies lightheadedness and Denies dyspnea Respiratory: Respiratory: Denies cough, Denies dyspnea and Denies wheezing Gastrointestinal: Gastrointestinal: Denies abdominal pain, Denies change in bowel habits, Denies nausea and Denies vomiting Genitourinary: Genitourinary: Denies hematuria and Denies dysuria Musculoskeletal: Musculoskeletal: Reports as per HPI Integumentary/Breasts: Skin/Breast: Reports as per HPI Neurologic: Denies dizziness and Denies headache(s) Allergic/Immunologic: Allergic/Immunologic: Denies throat swelling and Denies wheezing PMFSH Past Medical History Medical History Arthritis of both hands Diverticulosis Skin cancer History of basal cell carcinoma of the face. Anxiety Depression Arthritis Cardiac defibrillator in place Generator replaced within the past 2 years. Brugada syndrome Status post ICD insertion. She is a patient of Drs. Garza and Cruz at [facility]. Surgical History Surgical History History of bowel resection small bowel resection 01/16/19 History of colonoscopy findings of diverticulosis History of dilation and curettage History of surgery on wrist bilateral anchovy type CMC arthroplasty History of breast augmentation History of abdominoplasty H/O shoulder surgery Right shoulder. History of appendectomy At the age of 9. Family History Family History Father Carcinoma of colon Alcoholism Grandparent Alcoholism Cancer Depression Social History Social History Social History: The patient lives in [place]. She lived is originally from [place] and lived in [place] before moving here in September 2015 to be closer to her grandchildren. She works for the [employer]. She smoked a pack of cigarettes per day for many years, but quit several years ago. She has a long history of alcoholism but has abstained for several years. She denies drug use. Primary care provider is TYREE Nicolas. She designates her daughter and son, Jennie Springer, as her surrogate decision makers and she wishes to be a full code. 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 Spiritual care concerns: No Agree to blood products: Yes Meds Home Medications and Allergies Home Medications ?Medication ?Instructions ?Recorded ?Confirmed ?Type metoprolol succinate 50 mg 100 mg PO DAILY 01/08/19 01/02/25 History tablet,extended release 24 hr acetaminophen 325 mg capsule 325 mg PO ONCE PRN Pain 04/12/19 12/26/24 History (Tylenol) lorazepam 0.5 mg tablet 0.5 mg PO DAILY PRN Anxiety 05/29/21 01/02/25 History diphenoxylate-atropine 2.5 1 tablet PO TID 02/16/23 01/02/25 History mg-0.025 mg tablet (Lomotil) vitamins A,C,P-[id number] 4,296 1 cap PO DAILY 12/26/24 01/02/25 History mcg-226 mg-90 mg capsule (PreserVision AREDS) Allergies Allergy/AdvReac Type Severity Reaction Status Date / Time promethazine (From Phenergan) Allergy Severe Stroke Verified 01/02/25 09:11 symptoms Vital Signs Vital Signs - 24 hr 01/02/25 09:13 Temperature 96.7 F L Pulse Rate 83 Respiratory Rate 16 Blood Pressure 119/75 Pulse Oximetry 100 Oxygen Delivery Room Air Exam Const: General: no acute distress and alert Orientation/consciousness: patient oriented x3 HENMT: Head: normocephalic and atraumatic Ears: hearing grossly normal bilaterally Face/Nose/Sinus: Normal nares present Mouth: Yes Normal oral and palatal mucosa present Eyes: Periorbital: periorbital findings normal Sclera: sclerae normal EOM: EOMs intact bilaterally Neck: Neck: normal visual inspection, no lymphadenopathy and trachea midline Chest: Chest palpation & inspection: normal inspection of the chest Resp: Effort & Inspection: normal respiratory effort Auscultation: clear to auscultation bilaterally Cardio: Jugular venous distension: no JVD Rate: regular rate Rhythm: regular rhythm Heart sounds: S1 normal heart sound present and S2 normal heart sound present Peripheral pulses: Peripheral pulses 2+ throughout GI: Inspection: normal to inspection GI Palp: Yes Soft to palpation, No Tenderness to palpation present (GI), No Guarding due to palpation present (GI) and No Rebound tenderness present Percussion: Yes normal to percussion Auscultation: normal bowel sounds : General: Yes no CVA tenderness Back/Spine/Pelvis: Back: no CVA tenderness Neuro: General: patient oriented x3, no focal motor deficits and CN's II-XI intact bilaterally Cognition (Neuro): normal cognition Speech: normal speech Motor exam (neuro): 5/5 motor strength present throughout Extrem: General: capillary refill normal and no clubbing, cyanosis or edema Assessment and Plan Assessment and plan (1) Family hx of colon cancer: Code(s): Z80.0 - Family history of malignant neoplasm of digestive organs Status: Acute Assessment and Plan: I have recommended colonoscopy. I have discussed the procedure, risks, benefits, and alternatives. Questions were answered. Patient is agreeable to proceed.
--- NOTE | 2025-01-02 10:30 | WPDANESEPPF ---
Anes - Initial Pre Proc Eval Procedure: Operation Date: 01/02/25 10:30 Proposed Procedures p Screening Colonoscopy - Donavan Hou DO Date/Time: 01/02/25 10:30 Surgeon: Donavan Hou DO Pre Op Diagnosis: Family history of colon cancer Patient Data Age: 74 Gender: F Height: 1.55 m Weight: 57.4 kg Last Vital Signs Temp 96.7 F L 01/02/25 09:13 Pulse 83 01/02/25 09:13 Resp 16 01/02/25 09:13 BP 119/75 01/02/25 09:13 Pulse Ox 100 01/02/25 09:13 O2 Del Method Room Air 01/02/25 09:13 Allergies Allergy/AdvReac Type Severity Reaction Status Date / Time promethazine (From Phenergan) Allergy Severe Stroke Verified 01/02/25 09:11 symptoms Home Medications ?Medication ?Instructions ?Recorded ?Confirmed ?Type metoprolol succinate 50 mg 100 mg PO DAILY 01/08/19 01/02/25 History tablet,extended release 24 hr acetaminophen 325 mg capsule 325 mg PO ONCE PRN Pain 04/12/19 12/26/24 History (Tylenol) lorazepam 0.5 mg tablet 0.5 mg PO DAILY PRN Anxiety 05/29/21 01/02/25 History diphenoxylate-atropine 2.5 1 tablet PO TID 02/16/23 01/02/25 History mg-0.025 mg tablet (Lomotil) vitamins A,C,[id number]-[id number] 4,296 1 cap PO DAILY 12/26/24 01/02/25 History mcg-226 mg-90 mg capsule (PreserVision AREDS) Patient hx anesthesia problems: none Family hx anesthesia problems: none Results Review: All pre-operative results and documents have been reviewed as part of the pre-operative evaluation. FOR[facility]LY [facility], [facility] Past Medical History Medical History Arthritis of both hands Diverticulosis Skin cancer History of basal cell carcinoma of the face. Anxiety Depression Arthritis Cardiac defibrillator in place Generator replaced within the past 2 years. Brugada syndrome Status post ICD insertion. She is a patient of Drs. Garza and Cruz at [facility]. Surgical History Surgical History History of bowel resection small bowel resection 01/16/19 History of colonoscopy findings of diverticulosis History of dilation and curettage History of surgery on wrist bilateral anchovy type CMC arthroplasty History of breast augmentation History of abdominoplasty H/O shoulder surgery Right shoulder. History of appendectomy At the age of 9. Family History Family History Father Carcinoma of colon Alcoholism Grandparent Alcoholism Cancer Depression Social History Social History Social History: The patient lives in [place]. She lived is originally from [place] and lived in [place] before moving here in September 2015 to be closer to her grandchildren. She works for the [employer]. She smoked a pack of cigarettes per day for many years, but quit several years ago. She has a long history of alcoholism but has abstained for several years. She denies drug use. Primary care provider is TYREE Nicolas. She designates her daughter and son, Jennie Springer, as her surrogate decision makers and she wishes to be a full code. 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 ) Lungs: clear to auscultation Airway: Mallampati scale class II Neurological: alert and oriented Last oral intake: >/= 8 hours ASA classification: III Emergent: no Anesthetic plan: proceed Anesthesia type and monitoring: general GIVS and standard monitoring Results Review: All pre-operative results and documents have been reviewed as part of the pre-operative evaluation. Note from [facility] U cardio reviewed. Informed Consent: The patient's anesthetic plan and its attendant risks and benefits were discussed with the patient/family/POA. Questions were solicited and answers provided to the satisfaction of the patient/family/POA.
[2025-01-02 10:59] VITALS: BP 100/62; PULSE 65; RESP 18; O2SAT 100
[2025-01-02 11:09] VITALS: BP 131/65; PULSE 65; RESP 18; O2SAT 100
[2025-01-02 11:19] VITALS: BP 129/60; PULSE 62; RESP 18; O2SAT 100
== END 2025-01-02 11:28 | disposition home or self-care (01) ==
PROVIDERS: PCP Physician Assistant; Visit Provider Surgery
PROC: 0DJD8ZZ Inspection of Lower Intestinal Tract, Via Natural or Artificial Opening Endoscopic (ICD-10-PCS; CPT 45378; principal; 2025-01-02 10:30)
DX: Z12.11 Encounter for screening for malignant neoplasm of colon (principal); K57.30 Diverticulosis of large intestine without perforation or abscess without bleeding; Z80.0 Family history of malignant neoplasm of digestive organs; Z87.891 Personal history of nicotine dependence
CPT/HCPCS: G0105; J2003; J2704; J7120